=== PATIENT | female | born 1925 | race Two or more races ===

== ENCOUNTER 2017-09-29 11:07 | Inpatient (IN) ==
[2017-09-29] MEDS ORDERED: Sod Chloride 0.9% Inj 1,000 ML IV.SIG ONE ×3 (11:24→13:39)
--- NOTE | 2017-09-29 11:31 | ED ---
HPI General Chief complaint: Vaginal Bleeding Stated complaint: [employer] Complaint Time Seen by Provider: 09/29/17 11:16 Source: other (SNF notes) Mode of arrival: EMS Limitations: other (non verbal at baseline) History of Present Illness HPI Narrative: 89-year-old female with PMH of HTN, dementia, nonverbal at baseline, on Plavix presents the ED via EMS from her SNF for evaluation of 2 episodes of clots from the vaginal area. On arrival the patient is alert, responsive to stimuli. She is unable to provide any history. Her daughter arrives to bedside and states that she has not seen any vaginal bleeding. The daughter states that the patient had "a stomach virus" last week and required supplemental 02 but has since been "fine" on room air. Related Data Allergies Allergy/AdvReac Type Severity Reaction Status Date / Time No Known Allergies Allergy Unknown Uncoded 08/07/17 18:55 Review of Systems ROS Unobtainable ROS Unobtainable: unobtainable due to mental status (patient is nonverbal at baseline) PMFSH Social History Social History Smoking Status: Unknown if ever smoked How Often Do You Have a Drink Containing Alcohol: Unable to Obtain Recent Travel in [place] within the Last 8 Weeks: No Recent Out of Country Travel within the Last 8 Weeks: No Exam Narrative Exam Narrative: GENERAL: Well developed, well nourished Latine female in [facility]. Nonverbal. SKIN: Focused skin assessment warm/dry. HEAD: Atraumatic. Normocephalic. EYES: Pupils equal and round. No scleral icterus. No injection or drainage. ENT: No nasal bleeding or discharge. Mucous membranes pink and moist. NECK: Trachea midline. No JVD. CARDIOVASCULAR: Regular rate and rhythm. No murmur appreciated. RESPIRATORY: No accessory muscle use. Clear to auscultation. Breath sounds equal bilaterally. GASTROINTESTINAL: Abdomen soft, nondistended. Tender in suprapubic region. Hepatic and splenic margins not palpable. Active bowel sounds. : External genitalia unremarkable. Urine collected on straight catheterization frankly bloody. MUSCULOSKELETAL: No obvious deformities. No clubbing. No cyanosis. No edema. NEUROLOGICAL: Awake and alert. No obvious cranial nerve deficits. Motor grossly within normal limits. Normal speech. PSYCHIATRIC: Appropriate mood and affect; insight and judgment normal. Course Initial Documented Vital Signs Temperature 98.6 F 09/29/17 11:16 Pulse Rate 112 H 09/29/17 11:16 Respiratory Rate 18 09/29/17 11:16 Blood Pressure 82/56 L 09/29/17 11:16 Pulse Oximetry 95 09/29/17 11:16 Last Documented Vital Signs Temperature 98.6 F 09/29/17 11:16 Pulse Rate 83 09/29/17 15:47 Respiratory Rate 18 09/29/17 15:47 Blood Pressure 83/53 L 09/29/17 15:47 Pulse Oximetry 96 09/29/17 15:47 Medical Decision Making AMARA Attestation AMARA supervised visit: Yes Attestation: I, Dr. Calle, have reviewed the advance practice practitioner's documentation and am in agreement, met with the patient face to face, made the diagnosis, and the medical decision making was done by me. *My assessment and Findings: Sepsis with urinary tract infection. Hypotension despite 3 L of fluid. Patient be started on levo fed. Case was discussed with Dr. Abiel John who will resume care. MDM Narrative Medical decision making narrative: 89-year-old female presents the ED from her SNF for evaluation of 2 episodes of vaginal bleeding. BP 82/56, pulse 112, afebrile, respiratory rate of 18 with O2 sats of 95% on room air on presentation. Patient is nonverbal at baseline. Physical exam reveals suprapubic tenderness and amanda hematuria. Suspect hemorrhagic cystitis. IV was established. Patient was administered 2 L normal saline. CBC: WBC 30.1 with absolute neutrophil count of 29.5. Hemoglobin 12.7. CMP: BUN 33, creatinine 1.71, GFR 28. There is an anion gap of 19. Lactic acid 10.8 ABG: pH 7.3 PCO2 27 HCO3 12.9 UA: Cloudy, innumerable WBCs and RBCs, occasional WBC clumps, many bacteria, culture pending. Ultrasound KUB: 3 nonobstructing left kidney stones up to 16 mm. No other acute abnormality. Patient was administered 2 liter of normal saline. 2L NC initiated. Vitals on recheck: HR 76, BP 80/55. Levophed drip initiated. Patient was administered 4.5 mg Zosyn. Three-way catheter was inserted and flushing of the hematuria was initiated. I spoke with the patients daughter at bedside who is agreeable to admission. The patient does not currently have an advanced directive. Dr. Calle spoke with Dr. John who agrees to accept the patient to the ICU. Please see medicine notes for disposition. Medical Screen Exam Complete: Yes Emergency Medical Condition: Yes Differential Diagnosis Differential Diagnosis: Hemorrhagic cystitis versus bladder tumor versus GI bleed versus anemia versus metabolic derangement versus other Lab Data Result diagrams: 09/29/17 11:30 09/29/17 11:30 Lab Results 09/29/17 09/29/17 09/29/17 Range/Units 10:10 11:30 11:30 WBC 30.1 H (4.0-11.0) th/mm3 RBC 4.49 (4.00-5.30) mil/mm3 Hgb 12.7 (11.6-15.3) gm/dL Hct 39.4 (35.0-46.0) % MCV 87.9 (80.0-100.0) fL MCH 28.4 (27.0-34.0) pg MCHC 32.3 (32.0-36.0) % RDW 14.8 (11.6-17.2) % Plt Count 277 (150-450) th/mm3 MPV 8.0 (7.0-11.0) fL Prelim Diff (Auto) Manual diff required WBC Differential Manual diff final Seg Neuts % (Manual) 56 (16-70) % Band Neuts % (Manual) 37 H (0-6) % Lymphocytes % (Manual) 2 L (9-44) % Metamyelocytes % (Man) 1 (0-1) % Myelocytes % (Man) 4 H (0-0) % Abs Neuts (Manual) 29.5 H (1.8-7.7) th/mm3 Differential Comment . Toxic Vacuolation Present H (None) Platelet Estimate Normal (Normal) Platelet Morphology Enlarged H (Normal) PT 13.5 H (9.8-11.6) sec INR 1.3 Ratio APTT 31.1 H (24.3-30.1) sec Puncture Site Patient Temperature O2 Saturation (90-100) % ABG pH (7.380-7.420) ABG pCO2 (38-42) mmHg ABG pO2 (61-120) mmHg ABG HCO3 (22-26) mmol/L ABG O2 Content (12.0-20.0) Vol % ABG Base Excess (-2-2) mmol/L ABG Methemoglobin (0-2) % Lex Test Hemoglobin (12.0-16.0) G/DL Carboxyhemoglobin (0-4) % O2 Delivery Device Inspired O2 % Critical Value Sodium (136-145) meq/L Potassium (3.5-5.1) meq/L Chloride (98-107) meq/L Carbon Dioxide (21.0-32.0) meq/L Anion Gap (5-15) meq/L BUN (7-18) mg/dL Creatinine (0.50-1.00) mg/dL Estimated GFR (>89) mL/min Random Glucose (74-106) mg/dL Lactic Acid (0.4-2.0) mmol/L Calcium (8.5-10.1) mg/dL Total Bilirubin (0.2-1.0) mg/dL AST (15-37) U/L ALT (10-53) U/L Alkaline Phosphatase (45-117) U/L Total Protein (6.4-8.2) g/dL Albumin (3.4-5.0) g/dL Urine Color Red (Yellw/Straw) Urine Clarity Cloudy H (Clear) Urine pH 6.0 (5.0-8.5) Ur Specific [place] 1.025 (1.002-1.035) Urine Protein 100 H (Neg-Trace) mg/dL Urine Glucose (UA) 50 (Negative) mg/dL Urine Ketones Negative (Negative) mg/dL Urine Occult Blood Large H (Negative) Urine Nitrate Negative (Negative) Urine Bilirubin Negative (Negative) Urine Urobilinogen Less than 2 (Less than 2) mg/dL Ur Leukocyte Esterase Negative (Negative) Urine RBC (0-3) /hpf Urine WBC (0-5) /hpf Urine WBC Clumps Occasional H (None) Urine Bacteria Many H (None) /hpf Micro UA Comment Cath-culture ind Urine Culture Comments Cath-cult indicated Blood Type Antibody Screen 09/29/17 09/29/17 09/29/17 Range/Units 11:30 11:30 13:00 WBC (4.0-11.0) th/mm3 RBC (4.00-5.30) mil/mm3 Hgb (11.6-15.3) gm/dL Hct (35.0-46.0) % MCV (80.0-100.0) fL MCH (27.0-34.0) pg MCHC (32.0-36.0) % RDW (11.6-17.2) % Plt Count (150-450) th/mm3 MPV (7.0-11.0) fL Prelim Diff (Auto) WBC Differential Seg Neuts % (Manual) (16-70) % Band Neuts % (Manual) (0-6) % Lymphocytes % (Manual) (9-44) % Metamyelocytes % (Man) (0-1) % Myelocytes % (Man) (0-0) % Abs Neuts (Manual) (1.8-7.7) th/mm3 Differential Comment Toxic Vacuolation (None) Platelet Estimate (Normal) Platelet Morphology (Normal) PT (9.8-11.6) sec INR Ratio APTT (24.3-30.1) sec Puncture Site Patient Temperature O2 Saturation (90-100) % ABG pH (7.380-7.420) ABG pCO2 (38-42) mmHg ABG pO2 (61-120) mmHg ABG HCO3 (22-26) mmol/L ABG O2 Content (12.0-20.0) Vol % ABG Base Excess (-2-2) mmol/L ABG Methemoglobin (0-2) % Lex Test Hemoglobin (12.0-16.0) G/DL Carboxyhemoglobin (0-4) % O2 Delivery Device Inspired O2 % Critical Value Sodium 144 (136-145) meq/L Potassium 3.9 (3.5-5.1) meq/L Chloride 109 H (98-107) meq/L Carbon Dioxide 16.2 L (21.0-32.0) meq/L Anion Gap 19 H (5-15) meq/L BUN 33 H (7-18) mg/dL Creatinine 1.71 H (0.50-1.00) mg/dL Estimated GFR 28 L (>89) mL/min Random Glucose 193 H (74-106) mg/dL Lactic Acid 10.8 H* (0.4-2.0) mmol/L Calcium 8.3 L (8.5-10.1) mg/dL Total Bilirubin 0.7 (0.2-1.0) mg/dL AST 20 (15-37) U/L ALT 17 (10-53) U/L Alkaline Phosphatase 90 (45-117) U/L Total Protein 7.3 (6.4-8.2) g/dL Albumin 2.6 L (3.4-5.0) g/dL Urine Color (Yellw/Straw) Urine Clarity (Clear) Urine pH (5.0-8.5) Ur Specific [place] (1.002-1.035) Urine Protein (Neg-Trace) mg/dL Urine Glucose (UA) (Negative) mg/dL Urine Ketones (Negative) mg/dL Urine Occult Blood (Negative) Urine Nitrate (Negative) Urine Bilirubin (Negative) Urine Urobilinogen (Less than 2) mg/dL Ur Leukocyte Esterase (Negative) Urine RBC (0-3) /hpf Urine WBC (0-5) /hpf Urine WBC Clumps (None) Urine Bacteria (None) /hpf Micro UA Comment Urine Culture Comments Blood Type B Positive Antibody Screen Negative 09/29/17 Range/Units 13:45 WBC (4.0-11.0) th/mm3 RBC (4.00-5.30) mil/mm3 Hgb (11.6-15.3) gm/dL Hct (35.0-46.0) % MCV (80.0-100.0) fL MCH (27.0-34.0) pg MCHC (32.0-36.0) % RDW (11.6-17.2) % Plt Count (150-450) th/mm3 MPV (7.0-11.0) fL Prelim Diff (Auto) WBC Differential Seg Neuts % (Manual) (16-70) % Band Neuts % (Manual) (0-6) % Lymphocytes % (Manual) (9-44) % Metamyelocytes % (Man) (0-1) % Myelocytes % (Man) (0-0) % Abs Neuts (Manual) (1.8-7.7) th/mm3 Differential Comment Toxic Vacuolation (None) Platelet Estimate (Normal) Platelet Morphology (Normal) PT (9.8-11.6) sec INR Ratio APTT (24.3-30.1) sec Puncture Site Right radial Patient Temperature 98.6 O2 Saturation 91 (90-100) % ABG pH 7.30 L (7.380-7.420) ABG pCO2 27 L (38-42) mmHg ABG pO2 66 (61-120) mmHg ABG HCO3 13 L* (22-26) mmol/L ABG O2 Content 13.1 (12.0-20.0) Vol % ABG Base Excess -12.3 L (-2-2) mmol/L ABG Methemoglobin 0.4 (0-2) % Lex Test Y Hemoglobin 10.3 L (12.0-16.0) G/DL Carboxyhemoglobin 1.3 (0-4) % O2 Delivery Device Ra Inspired O2 21 % Critical Value Yes Sodium (136-145) meq/L Potassium (3.5-5.1) meq/L Chloride (98-107) meq/L Carbon Dioxide (21.0-32.0) meq/L Anion Gap (5-15) meq/L BUN (7-18) mg/dL Creatinine (0.50-1.00) mg/dL Estimated GFR (>89) mL/min Random Glucose (74-106) mg/dL Lactic Acid (0.4-2.0) mmol/L Calcium (8.5-10.1) mg/dL Total Bilirubin (0.2-1.0) mg/dL AST (15-37) U/L ALT (10-53) U/L Alkaline Phosphatase (45-117) U/L Total Protein (6.4-8.2) g/dL Albumin (3.4-5.0) g/dL Urine Color (Yellw/Straw) Urine Clarity (Clear) Urine pH (5.0-8.5) Ur Specific [place] (1.002-1.035) Urine Protein (Neg-Trace) mg/dL Urine Glucose (UA) (Negative) mg/dL Urine Ketones (Negative) mg/dL Urine Occult Blood (Negative) Urine Nitrate (Negative) Urine Bilirubin (Negative) Urine Urobilinogen (Less than 2) mg/dL Ur Leukocyte Esterase (Negative) Urine RBC (0-3) /hpf Urine WBC (0-5) /hpf Urine WBC Clumps (None) Urine Bacteria (None) /hpf Micro UA Comment Urine Culture Comments Blood Type Antibody Screen Imaging Data Radiologist's impression: Abdomen/Bladder Ultrasound 09/29/17 12:23 CONCLUSION: 1. Suspected 3 nonobstructing left renal stones measuring up to 16 mm. 2. No other significant abnormality is identified. There is a simple cyst in the lower pole the right kidney measuring 18 mm. Discharge Plan Discharge Disposition Patient Disposition: 30 Still Patient Physicians Team ED Provider: Ramón Calle ED Midlevel Provider: Dior Reyna Primary Care Provider: Blue Holman Attending Provider: Nicholas Liriano Other Providers: Marcin Jimenez Discharge Interventions Interventions: Vital Signs Last Done: 09/29/17 15:47 Status ED Status: Admitted Patient
[2017-09-29 12:17] LABS: Activated Partial Thrombo Time 31.1 sec (24.3-30.1); INR 1.3 Ratio; Prothrombin Time 13.5 sec (9.8-11.6)
[2017-09-29 12:20] LABS: Bacteria,Urine Many /hpf; Bilirubin,Urine Negative (Negative); Clarity,Urine Cloudy (Clear); Color,Urine Red (Yellw/Straw); Glucose,Urine (UA) 50 mg/dL (Negative); Leukocyte Esterase,Urine Negative (Negative); Nitrite,Urine Negative (Negative); Specific Gravity,Urine 1.025 (1.002-1.035)
[2017-09-29 12:21] LABS: Hematocrit 39.4 % (35.0-46.0); Hemoglobin 12.7 gm/dL (11.6-15.3); Mean Corpuscular HGB Conc 32.3 % (32.0-36.0); Mean Corpuscular Hemoglobin 28.4 pg (27.0-34.0); Mean Corpuscular Volume 87.9 fL (80.0-100.0); Platelet Count 277 th/mm3 (150-450); Red Blood Count 4.49 mil/mm3 (4.00-5.30); Red Cell Distribution Width 14.8 % (11.6-17.2); White Blood Count 30.1 th/mm3 (4.0-11.0)
[2017-09-29 12:26] LABS: Alanine Aminotransferase 17 U/L (10-53); Albumin 2.6 g/dL (3.4-5.0); Anion Gap 19 meq/L (5-15); Aspartate Aminotransferase 20 U/L (15-37); Blood Urea Nitrogen 33 mg/dL (7-18); Calcium 8.3 mg/dL (8.5-10.1); Carbon Dioxide 16.2 meq/L (21.0-32.0); Chloride 109 meq/L (98-107); Glomerular Filtration Rate 28 mL/min (>89); Glucose,Random 193 mg/dL (74-106); Potassium 3.9 meq/L (3.5-5.1); Sodium 144 meq/L (136-145)
[2017-09-29 12:29] LABS: Alkaline Phosphatase 90 U/L (45-117); Total Protein 7.3 g/dL (6.4-8.2)
[2017-09-29] MEDS ORDERED: Piperacil/Tazo 4.5 GM Premix 4.5 GM/100 ML BAG IV.SIG ONE (12:47)
[2017-09-29 12:48] LABS: Lymphocytes 2 % (9-44); Metamyelocytes 1 % (0-1); Myelocytes 4 % (0-0)
[2017-09-29 12:49] LABS: Platelet Estimate Normal (Normal); Toxic Vacuolation Present
--- NOTE | 2017-09-29 13:33 | US ---
EXAM DATE: 09/29/2017 1:15 PM EDT AGE/SEX: 89 years / Female INDICATIONS: Hematuria. CLINICAL DATA: This is the patient's initial encounter. Patient reports that signs and symptoms have been present for 1 day and indicates a pain score of Nonresponsive. MEDICAL/SURGICAL HISTORY: Hypertension. Dementia. Plavix therapy. None. COMPARISON: No prior exams available for comparison. MEASUREMENTS: Right Kidney:__12.2 x 5.4 x 4.7 cm Left Kidney:__10.0 x 5.5 x 5.5 cm FINDINGS: Right Kidney: Echotexture is within normal limits. No hydronephrosis or mass is present. There is an anechoic avascular lesion at the lower pole with through transmission measuring 1.5 x 1.4 x 1.8 cm. Left Kidney: Echotexture is within normal limits. No hydronephrosis or mass is present. There are 3 e chogenic structure is in the collecting system, the 2 largest of which demonstrate shadowing. These r wesley in size from 6 mm up to 16 mm. Bladder: Decompressed. Not well evaluated. Other: None. CONCLUSION: 1. Suspected 3 nonobstructing left renal stones measuring up to 16 mm. 2. No other significant abnormality is identified. There is a simple cyst in the lower pole the righ t kidney measuring 18 mm. Electronically signed by: Malik Goff MD 09/29/2017 1:32 PM EDT
[2017-09-29 14:32] LABS: ABG Base Excess -12.3 mmol/L (-2-2); ABG PCO2 27 mmHg (38-42); ABG PO2 66 mmHg (61-120)
[2017-09-29] MEDS: Dextrose 5%/NaCl 0.9% Inj 1,000 ML IV.CONT SCH (15:09)
--- NOTE | 2017-09-29 16:06 | CT ---
EXAM DATE: 09/29/2017 3:41 PM EDT AGE/SEX: 89 years / Female INDICATIONS: Hematuria. CLINICAL DATA: This is the patient's initial encounter. Patient reports that signs and symptoms have been present for 1 day and indicates a pain score of 0/10. MEDICAL/SURGICAL HISTORY: None. None. RADIATION DOSE: 15.39 CTDI (mGy) COMPARISON: No prior exams available for comparison. TECHNIQUE: Multiple contiguous axial images were obtained through the abdomen. Images were obtained using multiple row detector helical technique. Using automated exposure control and adjustment of the mA and/or kV according to patient size, radiation dose was kept as low as reasonably achievable to o btain optimal diagnostic quality images. DICOM format image data is available electronically for rev iew and comparison. FINDINGS: The study is moderately degraded by patient motion and respiratory motion Liver: Visualized portions are grossly unremarkable. Spleen: Visualized portions grossly unremarkable. Pancreas: Unremarkable without mass or calcification. Kidneys: Staghorn calculus in the left renal pelvis. Small stone fragments in the lateral upper pole collecting system, in the posterior and lateral midpole collecting system and in the lateral lower p ole collecting system as well. No stones are seen on the right. No significant hydronephrosis on eith er side Adrenal Glands: Unremarkable. Aorta: The aorta and proximal iliac vessels are grossly unremarkable without aneurysmal dilation. Bowel/Mesentery: The bowel loops are grossly unremarkable. The cecum and sigmoid colon have a normal configuration. Abdominal Wall: Intact. Retroperitoneum: No evidence of adenopathy in the retrocrural, para-aortic, or deep pelvic regions. Bladder: Decompressed with Pelaez catheter. Reproductive Organs: No abnormal masses or calcifications seen. Inguinal: Bowel containing right inguinal hernia without definite evidence of incarceration or obstr uction at present Bony Structures: Prominent degenerative changes and scoliosis in the lumbar spine. Previous pinning of the right hip. CONCLUSION: Staghorn calculus in the left kidney. Electronically signed by: Malik Joseph MD 09/29/2017 4:05 PM EDT
--- NOTE | 2017-09-29 17:38 | MB ---
cc: Marcin Jimenez DO DATE: 09/29/2017 DATE OF CONSULTATION: 09/29/2017. HISTORY OF PRESENT ILLNESS: An 89-year-old female was brought in from the senior living with findings of gross hematuria and clots in her vaginal area. She is noncommunicative and this history will be taken from the chart. CT scan was done which demonstrated a large left staghorn calculus without any evidence of hydronephrosis. She also appeared septic and is currently with a blood pressure of 83/53 and Levophed is currently being started. She also had a Pelaez catheter inserted and the gross hematuria cleared with gentle CBI. ALLERGIES: NO KNOWN DRUG ALLERGIES. PAST MEDICAL HISTORY: Includes hypertension, dementia, history of coronary artery disease, currently on Plavix. PAST SURGICAL HISTORY: No surgical history is noted. Unable to obtain social or family history as well as review of systems. PHYSICAL EXAMINATION: VITAL SIGNS: Today 98.6, heart rate 83, respiratory rate 18, 83/53. GENERAL: She is a frail 89-year-old female, nonverbal and noncommunicative. HEENT: Pupils are equal, round, reactive to light. NECK: Supple. HEART: Regular rate and rhythm. LUNGS: Breath sounds bilaterally. ABDOMEN: Soft, nontender, nondistended. Pelaez catheter inserted, draining pink-colored urine. EXTREMITIES: Show no cyanosis, clubbing, or edema. LABORATORY DATA: White count is 30.1, hemoglobin 12.7, hematocrit 39.4, platelet count of 277. PT 33.5, INR 1.3, PTT is 31.1. Sodium 144, potassium 3.9, chloride 109, CO2 16.2, BUN of 33, creatinine 1.71, glucose of 193. Urinalysis shows numerous red and white cells. Nitrite is negative. Imaging shows a large left staghorn calculus and an ultrasound of the abdomen showed a simple cyst to the lower pole of the right kidney measuring 18 mm. ASSESSMENT AND PLAN: An 89-year-old female admitted with sepsis. Findings of a left staghorn calculus without obstruction and gross hematuria. Will continue continuous bladder irrigation for now. IV antibiotics and start Levophed. The left staghorn calculus is nonobstructing and we will treat the infection first. Maintain Pelaez catheter and continue CBI. Hold Plavix for now as she is having gross hematuria. We will follow closely with you. Thank you for the consult and allowing me to participate in the care of this patient. DO OSCAR Mcbride/tin , 04:49 PM , 04:59 PM
--- NOTE | 2017-09-29 19:29 | P.HPCC ---
History of Present Illness Service: Critical Care Medicine Primary Care Physician: Blue Holman MD Chief Complaint: hematuria History of Present Illness: This is an 89yF with end-stage dementia who is nonverbal and resides in a healthcare facility. she is brought in by her daughter and medical decision- maker for 48h of hematuria. patient is nonverbal and no additional information is obtainable from the patient. per the daughter, she gets frequent UTIs and she notices this when the patient's clothes have a foul odor. She states she has noticed hematuria x 2 days. no other changes to her appetite or any other changes. Patient has severe dementia and is nonverbal. patient has not had any fevers or rigors that were noticeable to her daughter. in the ER, patient was hypotensive, tachycardic, with leukocytosis. given 3L crystalloid ivf without improvement in hemodynamics and started on norepinephrine for vasopressor support. CT abd/pelvis demonstrates staghorn calculi without hydronephrosis. pedraza catheter placed and started on CBI which improved hematuria. ROS unobtainable. Inpatient Certification: I certify that the inpatient services were ordered in accordance with Medicare regulations governing the order. This includes certification that hospital inpatient services are reasonable and necessary and in the case of services not specified as inpatient-only under 42 CFR 419.22(n), that they are appropriately provided as inpatient services in accordance to with the 2-midnight benchmark under 43 CFR 412.3(e) Estimated Total Length of Stay (Days): 2 Plans for Post Hospital Care: Not yet determined Review of Systems unobtainable due to mental condition, unobtainable due to mental status PMFSH - History History Provided By: Family Member - Medical / Surgical Hx Neg / Unobtainable Medical Problems Denied: Unable to Obtain Surgical History: Unable to Obtain - Tobacco History Second Hand Smoke Exposure: Yes Smoking Status: Never smoker - Alcohol History How Often Do You Have a Drink Containing Alcohol: Never - Substance Use History Substance History: No History of Abuse - Travel History Recent Travel in the [place] Within the Last 8 Weeks: No Recent Travel Out of the Country Within the Last 8 Weeks: No - Immunization History Tetanus Immunization: Unable to Assess Medications and Allergies Active Medications: Active Medications Dextrose/Sodium Chloride (D5w/Normal Saline Inj) 1,000 mls @ 84 mls/hr IV.CONT .[id number] [facility] Last Admin: 09/29/17 15:09 Dose: 84 mls/hr Norepinephrine Bitartrate (Levophed-Dextrose 4 Mg/250 Ml Drip) 4 mg in 250 mls @ 7.5 mls/hr IV.SIG TITRATE ONE; Protocol Stop: 10/01/17 01:51 Last Admin: 09/29/17 17:02 Dose: 2 mcg/min, 7.5 mls/hr Sodium Chloride (Ns Flush) 2 ml IV.FLUSH PRN PRN PRN Reason: FLUSH AFTER USING IV ACCESS Allergies Allergy/AdvReac Type Severity Reaction Status Date / Time No Known Allergies Allergy Unknown Uncoded 08/07/17 18:55 Results - Labs CBC & Chem 7: 09/29/17 11:30 09/29/17 11:30 Labs: Short CBC 09/29/17 Range/Units 11:30 WBC 30.1 H (4.0-11.0) th/mm3 Hgb 12.7 (11.6-15.3) gm/dL Hct 39.4 (35.0-46.0) % Plt Count 277 (150-450) th/mm3 BMP 09/29/17 11:30 Sodium 144 Potassium 3.9 Chloride 109 H Carbon Dioxide 16.2 L BUN 33 H Creatinine 1.71 H Calcium 8.3 L Liver Function 09/29/17 Range/Units 11:30 Total Bilirubin 0.7 (0.2-1.0) mg/dL AST 20 (15-37) U/L ALT 17 (10-53) U/L Alkaline Phosphatase 90 (45-117) U/L Albumin 2.6 L (3.4-5.0) g/dL Urine 09/29/17 Range/Units 10:10 Urine Color Red (Yellw/Straw) Urine Clarity Cloudy H (Clear) Urine pH 6.0 (5.0-8.5) Ur Specific [place] 1.025 (1.002-1.035) Urine Protein 100 H (Neg-Trace) mg/dL Urine Glucose (UA) 50 (Negative) mg/dL - Imaging Impressions Abdomen/Pelvis CT 09/29/17 00:00 CONCLUSION: Staghorn calculus in the left kidney. Abdomen/Bladder Ultrasound 09/29/17 12:23 CONCLUSION: 1. Suspected 3 nonobstructing left renal stones measuring up to 16 mm. 2. No other significant abnormality is identified. There is a simple cyst in the lower pole the right kidney measuring 18 mm. Exam Vital signs: Vital Signs 09/29/17 11:16 09/29/17 11:25 09/29/17 14:34 Temperature 37.0 C Pulse Rate 112 H Respiratory Rate 18 Blood Pressure 82/56 L Pulse Oximetry 95 96 99 09/29/17 14:50 09/29/17 15:47 09/29/17 19:00 Temperature 36.5 C Pulse Rate 89 83 83 Respiratory Rate 18 18 Blood Pressure 79/55 L 83/53 L 89/56 L Pulse Oximetry 99 96 99 Intake & Output 09/29/17 09/29/17 09/30/17 06:59 18:59 06:59 Intake Total 2099 Balance 2099 Weight 66.5 kg Intake: IV 2099 Zosyn 4.5 GM Premix 4.5 gm In 100 / 100 100 ml @ 200 mls/hr IV.SIG ONCE ONE Rx#:[id number] NS Inj 1,000 ML @ Wide Open IV. 1999 SIG BOLUS ONE Rx#:[id number] Other: Weight On Admission 66.5 kg Narrative: gen: frail elderly female, lying in bed, nonverbal at baseline. intermittent moaning. heent: nc. at. perrl. mucous membranes dry. neck: no jvd. trachea midline. chest: room air. equal chest rise. cv: tachycardic rate at 115 bpm. regular rhythm. sinus. on norephinephrine at 10 mcg/min abd: soft, nontender, nondistended. no guarding. no CVA tenderness. extr: no edema. distal pulses 2+ neuro: awake, tracks with eyes. does not follow commands. nonverbal. neuro exam is baseline for patient as described by her daughter who is at bedside. Septic Shock Reassessment Septic shock perfusion: reassessment completed (continues to have evidence of hypoperfusion and under-resuscitation and additional fluids have been ordered) Caprini VTE Risk Assessment Caprini VTE Risk Assessment: Moderate/High Risk (score >= 2) VTE Pharmacological Exception Reason: High risk for bleeding Caprini Risk Assessment Model: Point Value = 1 Point Value = 2 Point Value = 3 Point Value = 5 Age 41-60 Minor surgery BMI > 25 kg/m2 Swollen legs Varicose veins or History of unexplained or recurrent spontaneous Oral contraceptives or hormone replacement Sepsis (< 1 month) Serious lung disease, including pneumonia (< 1 month) Abnormal pulmonary function Acute myocardial infarction Congestive heart failure (< 1 month) History of inflammatory bowel disease Medical patient at bed rest Age 61-74 Arthroscopic surgery Major open surgery (> 45 min) Laparoscopic surgery (> 45 min) Malignancy Confined to bed (> 72 hours) Immobilizing plaster cast Central venous access Age >= 75 History of VTE Family history of VTE Factor V Leiden Prothrombin [id number] Lupus anticoagulant Anticardiolipin antibodies Elevated serum homocysteine Heparin-induced thrombocytopenia Other congenital or acquired thrombophilia Stroke (< 1 month) Elective arthroplasty Hip, pelvis, or leg fracture Acute spinal cord injury (< 1 month) Prophylaxis Regimen: Total Risk Factor Score Risk Level Prophylaxis Regimen 0-1 Low Early ambulation 2 Moderate Order ONE of the following: *Sequential Compression Device (SCD) *Heparin 5000 units SQ BID 3-4 Higher Order ONE of the following medications: *Heparin 5000 units SQ TID *Enoxaparin/Lovenox 40 mg SQ daily (WT < 150 kg, CrCl > 30 mL/min) *Enoxaparin/Lovenox 30 mg SQ daily (WT < 150 kg, CrCl > 10-29 mL/min) *Enoxaparin/Lovenox 30 mg SQ BID (WT < 150 kg, CrCl > 30 mL/min) AND/OR *Sequential Compression Device (SCD) 5 or more Highest Order ONE of the following medications: *Heparin 5000 units SQ TID (Preferred with Epidurals) *Enoxaparin/Lovenox 40 mg SQ daily (WT < 150 kg, CrCl > 30 mL/min) *Enoxaparin/Lovenox 30 mg SQ daily (WT < 150 kg, CrCl > 10-29 mL/min) *Enoxaparin/Lovenox 30 mg SQ BID (WT < 150 kg, CrCl > 30 mL/min) AND *Sequential Compression Device (SCD) Assessment and Plan - Assessment and Plan Plan: Assessment: 89yF with end-stage dementia and now septic shock secondary to urinary tract infection/acute pyelonephritis. continue ivf and vasopressors. abx and cultures. long discussion with daughter and son-in-law who are medical decision-makers: they wish patient to be DNR code status. they agree with vasopressors at this time. I consented the daughter for central line placement and she agrees, as patient is on vasopressor support for ongoing shock. critically ill at this time. Plan by systems: Neuro: end-stage severe dementia- nonverbal at baseline frequent neuro checks avoid long-acting sedatives Resp: IS at bedside wean o2 by nc for goal spo2 > 90% bedrest while in shock CV: Septic Shock s/p 3L crystalloid ivf add additional 5% albumin increase mivf to 100cc/hr trend lactates norepinephrine for goal map > 65mmHg Renal: Acute pyelonephritis Acute hematuria Acute kidney injury urology consult continue CBI abx as below trend Cr on daily bmp frequent uop monitoring FEN/GI: Acute protein calorie malnutrition- moderate Lactic Acidosis Acute anion-gap metabolic acidosis npo while in shock mivf at 100cc/hr trend lactates daily bmp ICU electrolyte protocol Heme/ID: Anemia secondary to acute blood loss Septic Shock Acute pyelonephritis Vancomycin with pharmacy dosing Zosyn urine culture, blood cultures does not meet transfusion triggers at this time daily cbc Endo: Hyperglycemia of critical illness SSI Prophylaxis: SCDs hold pharmacologic dvt prophylaxis given active hematuria Lines: 09/29 place right IJ TLC for vasopressors 09/29 3-way CBI Pedraza Dispo: admit to ICU. critically ill Critical care time: 41 minutes, exclusive of separately billable procedures. H&P: Quality - VTE Deep Vein Thrombosis/Pulmonary Embolism Present on Admission: No
[2017-09-29] MEDS ORDERED: Magnesium Oxide 400 MG Tablet PO PRN (19:30)
[2017-09-29] MEDS ORDERED: Potassium Phosphate Inj 30 MMOL in Sodium Chlor 0.9% Inj 250 ML IV.SIG PRN (19:30)
[2017-09-29] MEDS ORDERED: Potassium Phosphate 500 MG Soluble Tablet PO PRN ×2 (19:30)
[2017-09-29] MEDS ORDERED: Potassium Chloride 25 MEQ Effervescent Tablet PO PRN (19:30)
[2017-09-29] MEDS ORDERED: Sodium Phosphate Inj 30 MMOL in Sodium Chlor 0.9% Inj 250 ML IV.SIG PRN (19:30)
[2017-09-29] MEDS ORDERED: Magnesium Sulfate Inj 4 GM in Sodium Chlor 0.9% Inj 92 ML IV.SIG PRN (19:30)
[2017-09-29] MEDS ORDERED: Potassium Chlor 40 mEq Premix 40 MEQ/100 ML PIGGYBACK IV.SIG PRN ×2 (19:30)
[2017-09-29] MEDS ORDERED: Magnesium Sulfate Inj 2 GM in Sodium Chlor 0.9% Inj 96 ML IV.SIG PRN (19:30)
[2017-09-29] MEDS ORDERED: Potassium Chlor 20 mEq Premix 20 MEQ/100 ML PIGGYBACK IV.SIG PRN ×2 (19:30)
[2017-09-29] MEDS ORDERED: Bisacodyl 10 MG Supp RECTAL PRN (19:30)
--- NOTE | 2017-09-29 19:30 | P.PCN ---
Date of procedure: 09/29/17 Procedure: Central Line Procedure Note Right IJ 7 [place] 20 cm triple-lumen catheter Diagnosis: Septic shock Indications: Need for highly potent vasoactive substances Consent: Obtained from the daughter and medical decision maker Anesthesia: 1% lidocaine locally Description of the Procedure: The patient was placed in the supine, mild- Trendelenburg position. The area was prepped and draped sterilely. A 19g needle was inserted under negative pressure aspiration and dark venous blood was obtained. A guidewire was inserted easily without resistance. A small incision was made using a #11 blade. Using a modified Seldinger technique, the dilator and 7 [place], 20 cm catheter were advanced over the guidewire without resistance. All ports were aspirated and flushed, and had brisk blood return. The line was secured at 17 cm at the skin using a non-suture StatLock device. A Biopatch and Transparent sterile dressing were applied. There were no immediate complications noted. There was minimal EBL. The patient tolerated the procedure well. Ultrasound Guidance: Ultrasound guidance was used to identify the right internal jugular vein. The vascular anatomy of the right anterior neck was normal. The vessel was cannulated under direct, real-time ultrasound visualization. After placement of the guidewire, confirmation of the guidewire in the lumen of the vessel was made using ultrasound visualization, before dilation of the tract. A Chest x-ray has been ordered. I personally performed the procedure.
[2017-09-29] MEDS ORDERED: Vancomycin Inj 1 GM/200 ML PIGGYBACK IV.SIG ONE (19:35)
[2017-09-29] MEDS ORDERED: Vancomycin Consult Pharmacy OTHER PRN (19:35)
--- NOTE | 2017-09-29 19:59 | XR ---
EXAM DATE: 09/29/2017 7:42 PM EDT AGE/SEX: 89 years / Female INDICATIONS: Central line placement. CLINICAL DATA: This is the patient's initial encounter. Patient reports that signs and symptoms have been present for 1 day and indicates a pain score of Nonresponsive. MEDICAL/SURGICAL HISTORY: . Hypertension. Dementia. None. COMPARISON: No prior exams available for comparison. FINDINGS: Right central venous catheter tip projects in the right atrium. No evidence of pneumothorax. The exam ination is performed in expiration and there is elevation of the hemidiaphragms, right more than left . No evidence of mediastinal shift. Indistinctness and fullness of the perihilar structures. CONCLUSION: No evidence of pneumothorax status post placement of right central line. Electronically signed by: Tony Green MD 09/29/2017 7:58 PM EDT
[2017-09-29] MEDS: Famotidine PF Inj 20 MG/2 ML Vial IV.PUSH SCH (21:08)
[2017-09-29] MEDS: Sod Chloride 0.9% Inj 1,000 ML IV.CONT SCH (21:13)
[2017-09-29] MEDS: Senna/Docusate Sodium 8.6/50 MG Tablet PO SCH (21:14)
[2017-09-29] MEDS ORDERED: Vancomycin Inj 1,250 MG in Sodium Chlor 0.9% Inj 250 ML IV.SIG ONE (21:14)
[2017-09-29] MEDS ORDERED: Vancomycin Inj 1,000 MG in Sodium Chlor 0.9% Inj 250 ML IV.SIG ONE (21:16)
[2017-09-29] MEDS ORDERED: Albumin Human 5% Inj 500 ML IV.SIG ONE (22:09)
[2017-09-29] MEDS: Piperacil/Tazo 3.375 GM Premix 50 ML IV.SIG SCH (23:04)
[2017-09-30] MEDS: Chlorhexidine Gluconate 2% 1 Pack (2 Cloths) TOPICAL SCH (03:26)
[2017-09-30] MEDS: Piperacil/Tazo 3.375 GM Premix 50 ML IV.SIG SCH ×3 (03:41→15:36)
[2017-09-30] MEDS ORDERED: Chlorhexidine Gluconate 2% 1 Pack (2 Cloths) TOPICAL PRN (04:00)
[2017-09-30 04:04] LABS: Hematocrit 29.8 % (35.0-46.0); Hemoglobin 9.5 gm/dL (11.6-15.3); Mean Corpuscular HGB Conc 31.9 % (32.0-36.0); Mean Corpuscular Hemoglobin 28.4 pg (27.0-34.0); Mean Corpuscular Volume 89.1 fL (80.0-100.0); Mean Platelet Volume 7.7 fL (7.0-11.0); Platelet Count 177 th/mm3 (150-450); Red Blood Count 3.34 mil/mm3 (4.00-5.30); Red Cell Distribution Width 14.9 % (11.6-17.2); White Blood Count 51.8 th/mm3 (4.0-11.0)
[2017-09-30 04:27] LABS: Calcium 6.9 mg/dL (8.5-10.1); Carbon Dioxide 18.2 meq/L (21.0-32.0); Potassium 3.7 meq/L (3.5-5.1)
[2017-09-30 04:46] LABS: Total Protein 6.8 g/dL (6.4-8.2)
[2017-09-30] MEDS: Dextrose 5%/NaCl 0.9% Inj 1,000 ML IV.CONT SCH (05:26)
[2017-09-30] MEDS ORDERED: SODIUM CHLOR 0.9% IV.SIG ONE (06:00)
[2017-09-30] MEDS ORDERED: CALCIUM CHLORIDE IV.SIG ONE (06:00)
[2017-09-30] MEDS: Sod Chloride 0.9% Inj 1,000 ML IV.CONT SCH (07:13)
[2017-09-30] MEDS: Famotidine PF Inj 20 MG/2 ML Vial IV.PUSH SCH ×2 (08:19→20:00)
[2017-09-30] MEDS: Senna/Docusate Sodium 8.6/50 MG Tablet PO SCH ×2 (08:19→20:00)
--- NOTE | 2017-09-30 13:55 | P.PNURO ---
Subjective Patient symptoms today: Pt seen and examined. Gross hematuria on CBI. Pelaez irrigated at bedside. Objective Vital Signs: Vital Signs 09/29/17 14:34 09/29/17 14:50 09/29/17 15:47 Temperature Pulse Rate 89 83 Respiratory Rate 18 18 Blood Pressure 79/55 L 83/53 L Pulse Oximetry 99 99 96 09/29/17 19:00 09/29/17 20:00 09/29/17 21:00 Temperature 97.7 F Pulse Rate 83 82 85 Respiratory Rate 24 20 Blood Pressure 89/56 L 91/53 L 93/51 L Pulse Oximetry 99 96 95 09/29/17 21:25 09/29/17 22:00 09/29/17 23:00 Temperature Pulse Rate 81 83 Respiratory Rate 24 22 Blood Pressure 99/60 L 115/70 Pulse Oximetry 97 96 93 L 09/30/17 00:00 09/30/17 01:00 09/30/17 02:00 Temperature 98.7 F Pulse Rate 94 H 80 80 Respiratory Rate 24 24 24 Blood Pressure 123/82 114/60 113/59 L Pulse Oximetry 91 L 97 96 09/30/17 03:00 09/30/17 04:00 09/30/17 05:00 Temperature 98.3 F Pulse Rate 80 109 H 83 Respiratory Rate 21 26 H 24 Blood Pressure 144/83 H 144/72 H 94/70 L Pulse Oximetry 95 91 L 96 09/30/17 06:00 09/30/17 08:45 09/30/17 08:46 Temperature Pulse Rate 76 Respiratory Rate 20 Blood Pressure 99/55 L Pulse Oximetry 96 100 100 Intake & Output 09/29/17 09/30/17 09/30/17 18:59 06:59 18:59 Intake Total 2450 / 2450 1403.3 / 1403.3 Output Total 2625 / 2625 Balance -175 / -175 1403.3 / 1403.3 Weight 66.5 kg 65.5 kg Intake: IV 2450 / 2450 1403.3 / 1403.3 NS Inj 1,000 ML @ 100 mls/hr IV 1000 / 1000 .CONT .Q10H WADE Rx#:[id number] Calcium Chloride Inj 0.33 GM In 103.3 / 103.3 NS Inj 100 ML @ 103.3 mls/hr IV.SIG NOW ONE Rx#:[id number] Levophed-Dextrose 4 mg/250 ml 250 / 250 250 / 250 Drip 4 mg In 250 ml @ 7 MCG/MIN 26.25 mls/hr IV.SIG TITRATE PRN Rx#:[id number] Zosyn 3.375 GM Premix 50 ML @ 100 / 100 50 / 50 100 mls/hr IV.SIG Q6H WADE Rx#: [id number] Zosyn 4.5 GM Premix 4.5 gm In 100 / 100 100 ml @ 200 mls/hr IV.SIG ONCE ONE Rx#:[id number] NS Inj 1,000 ML @ Wide Open IV. 1999 / 1999 SIG BOLUS ONE Rx#:[id number] Output: Urine Amount (Catheter) 2625 / 2625 Straight 2625 / 2625 Other: Bladder Irrigation Fluid - Amount Instilled Straight 3,000 Bladder Irrigation Fluid - Amount Drained Straight 3,000 Date of Last Bowel Movement 09/29/17 09/30/17 # Bowel Movements 2 Weight On Admission 66.5 kg Result Diagrams: 09/30/17 03:50 09/30/17 03:50 Imaging: Impressions Abdomen/Pelvis CT 09/29/17 00:00 CONCLUSION: Staghorn calculus in the left kidney. Chest X-Ray 09/29/17 00:00 CONCLUSION: No evidence of pneumothorax status post placement of right central line. Medications and IVs: Active Medications Generic Name Dose Route Start Last Admin Trade Name Freq PRN Reason Stop Dose Admin Acetaminophen 650 mg 09/29/17 19:30 Tylenol PO Q6H PRN PAIN 1-10 AND/OR FEVER >101F Al Hydroxide/Mg Hydroxide 30 ml 09/29/17 19:30 Milk Of Magnesia Liq PO Q12H PRN Mild Constipation Albuterol 1 ampul 09/29/17 19:30 Duoneb Neb (Prn) NEB Q2HR NEB PRN WHEEZING Bisacodyl 10 mg 09/29/17 19:30 Dulcolax Supp RECTAL DAILY PRN SEVERE CONSITIPATION Chlorhexidine Gluconate 3 pack 09/30/17 04:00 09/30/17 03:26 Chlorhexidine 2% Cloth TOPICAL 10/05/17 03:59 3 pack DAILY@0400 WADE Administration Chlorhexidine Gluconate 3 pack 09/30/17 04:00 Chlorhexidine 2% Cloth TOPICAL 10/05/17 03:59 DAILY@0400 PRN Extra cloth needed Famotidine 10 mg 09/29/17 21:00 09/30/17 08:19 Pepcid Pf Inj IV.PUSH 10 mg Q12HR WADE Administration Dextrose/Sodium Chloride 1,000 mls @ 84 mls/hr 09/29/17 14:00 09/30/17 05:26 D5w/Normal Saline Inj IV.CONT Not Given .[id number] WADE Magnesium Sulfate Inj 4 gm/ 100 mls @ 50 mls/hr 09/29/17 19:30 Sodium Chloride IV.SIG UNSCH PRN For Magnesium 0.9 - 1.1 mg/dL Sodium Chloride 1,000 mls @ 100 mls/hr 09/29/17 21:00 09/30/17 07:13 Ns Inj IV.CONT 100 mls/hr .Q10H WADE Administration Potassium Chloride 20 meq in 100 mls @ 50 mls/hr 09/29/17 19:30 Kcl 20 Meq Premix Inj IV.SIG Q2H PRN For Potassium 3.3 - 3.5 mEq/L Potassium Chloride 40 meq in 100 mls @ 25 mls/hr 09/29/17 19:30 Kcl 40 Meq Premix Inj IV.SIG UNSCH PRN For Potassium 3.3 - 3.5 mEq/L Potassium Phosphate 30 mmol/ 260 mls @ 42 mls/hr 09/29/17 19:30 Sodium Chloride IV.SIG UNSCH PRN SEE LABEL COMMENTS Sodium Phosphate 30 mmol/ 260 mls @ 42 mls/hr 09/29/17 19:30 Sodium Chloride IV.SIG UNSCH PRN For Phosphorus < 2.5 mg/dL Magnesium Sulfate Inj 2 gm/ 100 mls @ 50 mls/hr 09/29/17 19:30 Sodium Chloride IV.SIG UNSCH PRN For Magnesium 1.2 - 1.6 mg/dL Potassium Chloride 40 meq in 100 mls @ 25 mls/hr 09/29/17 19:30 Kcl 40 Meq Premix Inj IV.SIG Q2H PRN For Potassium 2.8 - 3.2 mEq/L Potassium Chloride 20 meq in 100 mls @ 50 mls/hr 09/29/17 19:30 Kcl 20 Meq Premix Inj IV.SIG Q2H PRN For Potassium 2.8 - 3.2 mEq/L Piperacillin/Tazobactam/Dextrose 50 mls @ 100 mls/hr 09/29/17 22:00 09/30/17 10:30 Zosyn 3.375 Gm Premix IV.SIG Infused Q6H WADE Infusion Norepinephrine Bitartrate 4 mg in 250 mls @ 26.25 mls/hr 09/30/17 04:14 09/30 10:16 Levophed-Dextrose 4 Mg/250 Ml Drip IV.SIG 7 mcg/min TITRATE PRN 26.25 mls/hr Per Protocol Administration Protocol 7 MCG/MIN Lactulose 30 ml 09/29/17 19:30 Lactulose Liq PO DAILY PRN SEVERE CONSITIPATION Magnesium Oxide 800 mg 09/29/17 19:30 Mag-Ox PO UNSCH PRN For Magnesium 1.2 - 1.6 mg/dL Ondansetron HCl 4 mg 09/29/17 19:30 Zofran Inj IV.PUSH Q6H PRN NAUSEA OR VOMITING Pharmacy Profile Note 1 each 09/29/17 19:35 Vancomycin Consult Pharmacy OTHER UNSCH PRN Pharmacy to dose Potassium Bicarb/Potassium Chloride 50 meq 09/29/17 19:30 K-Lyte Cl Eff PO UNSCH PRN For Potassium 3.3 - 3.5 mEq/L Potassium Phosphate 2,000 mg 09/29/17 19:30 K-Phos Original PO Q4H PRN Phosphorus Less Than 2.5 mg/dL Potassium Phosphate 2,000 mg 09/29/17 19:30 K-Phos Original PO UNSCH PRN SEE LABEL COMMENTS Senna/Docusate Sodium 1 tab 09/29/17 21:00 09/30/17 08:19 Trina-Colace PO Not Given BID WADE Sennosides 17.2 mg 09/29/17 19:30 Senokot PO Q12H PRN Moderate Constipation Sodium Chloride 2 ml 09/29/17 19:30 Ns Flush IV.FLUSH PRN PRN FLUSH AFTER USING IV ACCESS Sodium Chloride 2 ml 09/29/17 21:00 09/30/17 08:20 Ns Flush IV.FLUSH 2 ml BID WADE Administration Terbutaline Sulfate 1 mg 09/30/17 04:14 Brethine Inj SQ UNSCH PRN For Extravasation Objective Remarks: ABd:soft,nt,nd Bladder distended. Assessment and Plan - Plan 89 y.o female with gross hematuria. Pelaez irrigated at bedside to clear Continue CBI for now.
--- NOTE | 2017-09-30 17:52 | P.PNCC ---
Subjective Subjective Remarks/Hospital Course: Hospital Course: This is an 89yF with end-stage dementia who is nonverbal and resides in a healthcare facility. she is brought in by her daughter and medical decision- maker for 48h of hematuria. patient is nonverbal and no additional information is obtainable from the patient. per the daughter, she gets frequent UTIs and she notices this when the patient's clothes have a foul odor. She states she has noticed hematuria x 2 days. no other changes to her appetite or any other changes. Patient has severe dementia and is nonverbal. patient has not had any fevers or rigors that were noticeable to her daughter. in the ER, patient was hypotensive, tachycardic, with leukocytosis. given 3L crystalloid ivf without improvement in hemodynamics and started on norepinephrine for vasopressor support. CT abd/pelvis demonstrates staghorn calculi without hydronephrosis. pedraza catheter placed and started on CBI which improved hematuria. ROS unobtainable. Subjective: 09/30: clinically improving. levophed requirement decreasing. lactate clearing. looks much better. family states she appears more herself. cultures growing e. coli which is ESBL by DNA PCR. will start ertapenem while we await formal sensitivities. Objective Vital Signs / I&O: Vital Signs 09/29/17 19:00 09/29/17 20:00 09/29/17 21:00 Temperature 36.5 C Pulse Rate 83 82 85 Respiratory Rate 24 20 Blood Pressure 89/56 L 91/53 L 93/51 L Pulse Oximetry 99 96 95 09/29/17 21:25 09/29/17 22:00 09/29/17 23:00 Temperature Pulse Rate 81 83 Respiratory Rate 24 22 Blood Pressure 99/60 L 115/70 Pulse Oximetry 97 96 93 L 09/30/17 00:00 09/30/17 01:00 09/30/17 02:00 Temperature 37.1 C Pulse Rate 94 H 80 80 Respiratory Rate 24 24 24 Blood Pressure 123/82 114/60 113/59 L Pulse Oximetry 91 L 97 96 09/30/17 03:00 09/30/17 04:00 09/30/17 05:00 Temperature 36.8 C Pulse Rate 80 109 H 83 Respiratory Rate 21 26 H 24 Blood Pressure 144/83 H 144/72 H 94/70 L Pulse Oximetry 95 91 L 96 09/30/17 06:00 09/30/17 08:45 09/30/17 08:46 Temperature Pulse Rate 76 Respiratory Rate 20 Blood Pressure 99/55 L Pulse Oximetry 96 100 100 Intake & Output 09/29/17 09/30/17 09/30/17 18:59 06:59 18:59 Intake Total 2450 / 2450 2453.3 / 2453.3 Output Total 2625 / 2625 Balance -175 / -175 2453.3 / 2453.3 Weight 66.5 kg 65.5 kg Intake: IV 2450 / 2450 2453.3 / 2453.3 NS Inj 1,000 ML @ 100 mls/hr IV 1999 .CONT .Q10H [facility] Rx#:[id number] Calcium Chloride Inj 0.33 GM In 103.3 / 103.3 NS Inj 100 ML @ 103.3 mls/hr IV.SIG NOW ONE Rx#:[id number] Levophed-Dextrose 4 mg/250 ml 250 / 250 250 / 250 Drip 4 mg In 250 ml @ 7 MCG/MIN 26.25 mls/hr IV.SIG TITRATE PRN Rx#:[id number] Zosyn 3.375 GM Premix 50 ML @ 100 / 100 100 / 100 100 mls/hr IV.SIG Q6H [facility] Rx#: [id number] Zosyn 4.5 GM Premix 4.5 gm In 100 / 100 100 ml @ 200 mls/hr IV.SIG ONCE ONE Rx#:[id number] NS Inj 1,000 ML @ Wide Open IV. 1999 SIG BOLUS ONE Rx#:[id number] Output: Urine Amount (Catheter) 2625 / 2625 Straight 2625 / 2625 Other: Bladder Irrigation Fluid - Amount Instilled Straight 3,000 Bladder Irrigation Fluid - Amount Drained Straight 3,000 Date of Last Bowel Movement 09/29/17 09/29/17 # Bowel Movements 2 Weight On Admission 66.5 kg Result Diagrams: 09/30/17 03:50 09/30/17 03:50 Objective Remarks: gen: frail elderly female, lying in bed, nonverbal at baseline. not moaning this AM. tracking with eyes. heent: nc. at. perrl. mucous membranes moist neck: no jvd. trachea midline. chest: room air. equal chest rise. cv: normal rate, regular rhythm. sinus. levophed at 3 mcg/min. abd: soft, nontender, nondistended. no guarding. no CVA tenderness. extr: no edema. distal pulses 2+ neuro: awake, tracks with eyes. does not follow commands. nonverbal. neuro exam is baseline for patient as described by her daughter who is at bedside. Assessment and Plan - Assessment and Plan Plan: Assessment: 89yF with end-stage dementia and now septic shock secondary to urinary tract infection/acute pyelonephritis. continue ivf and vasopressors. abx and cultures. continues to be complex and high risk. Plan by systems: Neuro: end-stage severe dementia- nonverbal at baseline frequent neuro checks avoid long-acting sedatives Resp: IS at bedside wean o2 by nc for goal spo2 > 90% bedrest while in shock CV: Septic Shock continue mivf 100cc/hr trend lactates norepinephrine for goal map > 65mmHg Renal: Acute pyelonephritis Acute hematuria Acute kidney injury urology consult continue CBI abx as below trend Cr on daily bmp frequent uop monitoring FEN/GI: Acute protein calorie malnutrition- moderate Lactic Acidosis- resolving. Acute anion-gap metabolic acidosis speech consult for swallow eval, advance diet after that. per mivf at 100cc/hr trend lactates daily bmp ICU electrolyte protocol Heme/ID: Anemia secondary to acute blood loss Septic Shock Acute pyelonephritis ESBL E. Coli UTI d/c vanc d/c zosyn start 1gm ertapenem iv q24h. continue to follow up formal sensitivities. does not meet transfusion triggers at this time daily cbc Endo: Hyperglycemia of critical illness SSI Prophylaxis: SCDs hold pharmacologic dvt prophylaxis given active hematuria Lines: 09/29 right IJ TLC for vasopressors 09/29 3-way CBI Pedraza Dispo: remain in ICU.
[2017-09-30] MEDS ORDERED: ASP: Documented ESBL, MDR A baumannii or P. aeruginosa OTHER PRN (20:07)
[2017-10-01] MEDS: Chlorhexidine Gluconate 2% 1 Pack (2 Cloths) TOPICAL SCH (03:16)
[2017-10-01 03:24] LABS: Hematocrit 21.8 % (35.0-46.0); Mean Corpuscular Hemoglobin 28.1 pg (27.0-34.0); Mean Corpuscular Volume 87.9 fL (80.0-100.0); Mean Platelet Volume 8.1 fL (7.0-11.0); Platelet Count 122 th/mm3 (150-450); Red Blood Count 2.48 mil/mm3 (4.00-5.30); White Blood Count 28.6 th/mm3 (4.0-11.0)
[2017-10-01] MEDS: Dextrose 5%/NaCl 0.9% Inj 1,000 ML IV.CONT SCH (03:40)
[2017-10-01 04:22] LABS: Calcium 6.9 mg/dL (8.5-10.1); Carbon Dioxide 18.9 meq/L (21.0-32.0); Potassium 3.6 meq/L (3.5-5.1)
[2017-10-01 04:36] LABS: Total Protein 5.9 g/dL (6.4-8.2)
[2017-10-01] MEDS: Sod Chloride 0.9% Inj 1,000 ML IV.CONT SCH ×2 (07:02)
--- NOTE | 2017-10-01 08:42 | P.PNURO ---
Subjective Patient symptoms today: Pt seen and examined. Gross hematuria continues. Will start Amicar CBI now. Received blood products this AM. Objective Vital Signs: Vital Signs 09/30/17 08:45 09/30/17 08:46 09/30/17 09:00 Temperature Pulse Rate 83 Respiratory Rate Blood Pressure Pulse Oximetry 100 100 09/30/17 12:00 09/30/17 16:00 09/30/17 20:00 Temperature 98.6 F 98 F 98.4 F Pulse Rate 125 H 77 87 Respiratory Rate 27 H 24 24 Blood Pressure 156/73 H 144/58 H 107/58 L Pulse Oximetry 95 99 94 L 09/30/17 20:15 09/30/17 21:00 09/30/17 22:00 Temperature Pulse Rate 74 105 H Respiratory Rate 20 22 Blood Pressure 100/51 L 188/78 H Pulse Oximetry 95 95 95 09/30/17 23:00 10/01/17 00:00 10/01/17 01:00 Temperature 98.8 F Pulse Rate 79 80 124 H Respiratory Rate 20 20 20 Blood Pressure 119/57 L 147/66 H 181/114 H Pulse Oximetry 96 95 79 L 10/01/17 02:00 10/01/17 03:00 10/01/17 04:00 Temperature Pulse Rate 79 79 79 Respiratory Rate 20 18 18 Blood Pressure 92/52 L 136/64 146/61 H Pulse Oximetry 94 L 92 L 88 L 10/01/17 04:56 10/01/17 05:00 10/01/17 05:12 Temperature 98.9 F 97.8 F Pulse Rate 83 83 83 Respiratory Rate 18 18 18 Blood Pressure 147/65 H 148/67 H 142/64 H Pulse Oximetry 98 96 98 10/01/17 06:00 10/01/17 07:30 Temperature 97.8 F Pulse Rate 78 Respiratory Rate 18 Blood Pressure 159/68 H Pulse Oximetry 98 100 Intake & Output 09/30/17 10/01/17 10/01/17 18:59 06:59 18:59 Intake Total 2453.3 / 2453.3 100 / 100 Output Total 2099 / 2099 Balance 353.3 / 353.3 100 / 100 Weight 71 kg Intake: IV 2453.3 / 2453.3 100 / 100 NS Inj 1,000 ML @ 100 mls/hr IV 1999 / 1999 .CONT .Q10H [facility] Rx#:[id number] Calcium Chloride Inj 0.33 GM In 103.3 / 103.3 NS Inj 100 ML @ 103.3 mls/hr IV.SIG NOW ONE Rx#:[id number] INVanz Inj 1,000 MG In NS Inj 100 / 100 100 ML @ 100 mls/hr IV.SIG Q24H [facility] Rx#:[id number] Levophed-Dextrose 4 mg/250 ml 250 / 250 Drip 4 mg In 250 ml @ 7 MCG/MIN 26.25 mls/hr IV.SIG TITRATE PRN Rx#:[id number] Zosyn 3.375 GM Premix 50 ML @ 100 / 100 100 mls/hr IV.SIG Q6H [facility] Rx#: [id number] Intake (Blood Product) Amt 0 / 0 Rbc As-3 Leukoreduced Unit 0 / 0 [id number] Output: Urine Amount (Catheter) 2099 3-way Urethral 2099 Other: Bladder Irrigation Fluid - 9,000 3,000 Amount Instilled 3-way Urethral 9,000 27,000 Bladder Irrigation Fluid - 11,050 Amount Drained 3-way Urethral 11,050 20,450 Date of Last Bowel Movement 09/29/17 # Bowel Movements 2 Result Diagrams: 10/01/17 03:10 10/01/17 03:10 Medications and IVs: Active Medications Generic Name Dose Route Start Last Admin Trade Name Freq PRN Reason Stop Dose Admin Acetaminophen 650 mg 09/29/17 19:30 Tylenol PO Q6H PRN PAIN 1-10 AND/OR FEVER >101F Al Hydroxide/Mg Hydroxide 30 ml 09/29/17 19:30 Milk Of Magnesia Liq PO Q12H PRN Mild Constipation Albuterol 1 ampul 09/29/17 19:30 Duoneb Neb (Prn) NEB Q2HR NEB PRN WHEEZING Bisacodyl 10 mg 09/29/17 19:30 Dulcolax Supp RECTAL DAILY PRN SEVERE CONSITIPATION Chlorhexidine Gluconate 3 pack 09/30/17 04:00 10/01/17 03:16 Chlorhexidine 2% Cloth TOPICAL 10/05/17 03:59 3 pack DAILY@0400 [facility] Administration Chlorhexidine Gluconate 3 pack 09/30/17 04:00 10/01/17 03:16 Chlorhexidine 2% Cloth TOPICAL 10/05/17 03:59 3 pack DAILY@0400 PRN Administration Extra cloth needed Famotidine 10 mg 09/29/17 21:00 09/30/17 20:00 Pepcid Pf Inj IV.PUSH 10 mg Q12HR [facility] Administration Magnesium Sulfate Inj 4 gm/ 100 mls @ 50 mls/hr 09/29/17 19:30 Sodium Chloride IV.SIG UNSCH PRN For Magnesium 0.9 - 1.1 mg/dL Sodium Chloride 1,000 mls @ 100 mls/hr 09/29/17 21:00 10/01/17 07:02 Ns Inj IV.CONT 100 mls/hr .Q10H [facility] Administration Potassium Chloride 20 meq in 100 mls @ 50 mls/hr 09/29/17 19:30 Kcl 20 Meq Premix Inj IV.SIG Q2H PRN For Potassium 3.3 - 3.5 mEq/L Potassium Chloride 40 meq in 100 mls @ 25 mls/hr 09/29/17 19:30 Kcl 40 Meq Premix Inj IV.SIG UNSCH PRN For Potassium 3.3 - 3.5 mEq/L Potassium Phosphate 30 mmol/ 260 mls @ 42 mls/hr 09/29/17 19:30 Sodium Chloride IV.SIG UNSCH PRN SEE LABEL COMMENTS Sodium Phosphate 30 mmol/ 260 mls @ 42 mls/hr 09/29/17 19:30 Sodium Chloride IV.SIG UNSCH PRN For Phosphorus < 2.5 mg/dL Magnesium Sulfate Inj 2 gm/ 100 mls @ 50 mls/hr 09/29/17 19:30 Sodium Chloride IV.SIG UNSCH PRN For Magnesium 1.2 - 1.6 mg/dL Potassium Chloride 40 meq in 100 mls @ 25 mls/hr 09/29/17 19:30 Kcl 40 Meq Premix Inj IV.SIG Q2H PRN For Potassium 2.8 - 3.2 mEq/L Potassium Chloride 20 meq in 100 mls @ 50 mls/hr 09/29/17 19:30 Kcl 20 Meq Premix Inj IV.SIG Q2H PRN For Potassium 2.8 - 3.2 mEq/L Ertapenem 1,000 mg/ Sodium 100 mls @ 100 mls/hr 09/30/17 21:00 09/30/17 22:39 Chloride IV.SIG Infused Q24H [facility] Infusion Lactulose 30 ml 09/29/17 19:30 Lactulose Liq PO DAILY PRN SEVERE CONSITIPATION Magnesium Oxide 800 mg 09/29/17 19:30 Mag-Ox PO UNSCH PRN For Magnesium 1.2 - 1.6 mg/dL Miscellaneous Medication 1 each 09/30/17 20:07 Asp Crit: Doc Esbl, Mdr A Baumannii Or P Aer OTHER 10/01/17 20:06 UNSCH PRN PHARMACY DOCUMENTATION Ondansetron HCl 4 mg 09/29/17 19:30 Zofran Inj IV.PUSH Q6H PRN NAUSEA OR VOMITING Potassium Bicarb/Potassium Chloride 50 meq 09/29/17 19:30 K-Lyte Cl Eff PO UNSCH PRN For Potassium 3.3 - 3.5 mEq/L Potassium Phosphate 2,000 mg 09/29/17 19:30 K-Phos Original PO Q4H PRN Phosphorus Less Than 2.5 mg/dL Potassium Phosphate 2,000 mg 09/29/17 19:30 K-Phos Original PO UNSCH PRN SEE LABEL COMMENTS Senna/Docusate Sodium 1 tab 09/29/17 21:00 09/30/17 20:00 Trina-Colace PO Not Given BID [facility] Sennosides 17.2 mg 09/29/17 19:30 Senokot PO Q12H PRN Moderate Constipation Sodium Chloride 2 ml 09/29/17 19:30 Ns Flush IV.FLUSH PRN PRN FLUSH AFTER USING IV ACCESS Sodium Chloride 2 ml 09/29/17 21:00 09/30/17 20:00 Ns Flush IV.FLUSH 2 ml BID [facility] Administration Objective Remarks: ABd:soft,nt,nd Bladder distended. 822 Abd:soft,nt,nd Pelaez: pink on CBI Assessment and Plan - Plan 89 y.o female with gross hematuria. Pelaez irrigated at bedside to clear Continue CBI for now. 10/01 89 y.o female with gross hematuria. Pelaez irrigated at bedside to clear Will start Amicar CBI now.
--- NOTE | 2017-10-01 08:56 | P.PNCC ---
Subjective Subjective Remarks/Hospital Course: Hospital Course: This is an 89yF with end-stage dementia who is nonverbal and resides in a healthcare facility. she is brought in by her daughter and medical decision- maker for 48h of hematuria. patient is nonverbal and no additional information is obtainable from the patient. per the daughter, she gets frequent UTIs and she notices this when the patient's clothes have a foul odor. She states she has noticed hematuria x 2 days. no other changes to her appetite or any other changes. Patient has severe dementia and is nonverbal. patient has not had any fevers or rigors that were noticeable to her daughter. in the ER, patient was hypotensive, tachycardic, with leukocytosis. given 3L crystalloid ivf without improvement in hemodynamics and started on norepinephrine for vasopressor support. CT abd/pelvis demonstrates staghorn calculi without hydronephrosis. pedraza catheter placed and started on CBI which improved hematuria. ROS unobtainable. Subjective: 09/30: clinically improving. levophed requirement decreasing. lactate clearing. looks much better. family states she appears more herself. cultures growing e. coli which is ESBL by DNA PCR. will start ertapenem while we await formal sensitivities. 10/01: off levophed. hematuria slightly worse. hgb dropped to 7 mg/dL this AM, receiving 1 unit prbc with recheck h&h. Objective Vital Signs / I&O: Vital Signs 09/30/17 09:00 09/30/17 12:00 09/30/17 16:00 Temperature 37.0 C 36.6 C Pulse Rate 83 125 H 77 Respiratory Rate 27 H 24 Blood Pressure 156/73 H 144/58 H Pulse Oximetry 95 99 09/30/17 20:00 09/30/17 20:15 09/30/17 21:00 Temperature 36.9 C Pulse Rate 87 74 Respiratory Rate 24 20 Blood Pressure 107/58 L 100/51 L Pulse Oximetry 94 L 95 95 09/30/17 22:00 09/30/17 23:00 10/01/17 00:00 Temperature 37.1 C Pulse Rate 105 H 79 80 Respiratory Rate 22 20 20 Blood Pressure 188/78 H 119/57 L 147/66 H Pulse Oximetry 95 96 95 10/01/17 01:00 10/01/17 02:00 10/01/17 03:00 Temperature Pulse Rate 124 H 79 79 Respiratory Rate 20 20 18 Blood Pressure 181/114 H 92/52 L 136/64 Pulse Oximetry 79 L 94 L 92 L 10/01/17 04:00 10/01/17 04:56 10/01/17 05:00 Temperature 37.2 C Pulse Rate 79 83 83 Respiratory Rate 18 18 18 Blood Pressure 146/61 H 147/65 H 148/67 H Pulse Oximetry 88 L 98 96 10/01/17 05:12 10/01/17 06:00 10/01/17 07:30 Temperature 36.6 C 36.6 C Pulse Rate 83 78 Respiratory Rate 18 18 Blood Pressure 142/64 H 159/68 H Pulse Oximetry 98 98 100 Intake & Output 09/30/17 10/01/17 10/01/17 18:59 06:59 18:59 Intake Total 2453.3 / 2453.3 100 / 100 Output Total 2099 Balance 353.3 / 353.3 100 / 100 Weight 71 kg Intake: IV 2453.3 / 2453.3 100 / 100 NS Inj 1,000 ML @ 100 mls/hr IV 1999 .CONT .Q10H [facility] Rx#:[id number] Calcium Chloride Inj 0.33 GM In 103.3 / 103.3 NS Inj 100 ML @ 103.3 mls/hr IV.SIG NOW ONE Rx#:[id number] INVanz Inj 1,000 MG In NS Inj 100 / 100 100 ML @ 100 mls/hr IV.SIG Q24H [facility] Rx#:[id number] Levophed-Dextrose 4 mg/250 ml 250 / 250 Drip 4 mg In 250 ml @ 7 MCG/MIN 26.25 mls/hr IV.SIG TITRATE PRN Rx#:[id number] Zosyn 3.375 GM Premix 50 ML @ 100 / 100 100 mls/hr IV.SIG Q6H [facility] Rx#: [id number] Intake (Blood Product) Amt 0 / 0 Rbc As-3 Leukoreduced Unit 0 / 0 [id number] Output: Urine Amount (Catheter) 2099 3-way Urethral 2099 Other: Bladder Irrigation Fluid - 9,000 3,000 Amount Instilled 3-way Urethral 9,000 27,000 Bladder Irrigation Fluid - 11,050 Amount Drained 3-way Urethral 11,050 20,450 Date of Last Bowel Movement 09/29/17 # Bowel Movements 2 Result Diagrams: 10/01/17 03:10 10/01/17 03:10 Objective Remarks: gen: frail elderly female, lying in bed, nonverbal at baseline. not moaning this AM. tracking with eyes. heent: nc. at. perrl. mucous membranes moist neck: no jvd. trachea midline. chest: room air. equal chest rise. cv: normal rate, regular rhythm. sinus. abd: soft, nontender, nondistended. no guarding. no CVA tenderness. extr: no edema. distal pulses 2+ neuro: awake, tracks with eyes. does not follow commands. nonverbal. neuro exam is baseline for patient as described by her daughter who is at bedside. Assessment and Plan - Assessment and Plan Plan: Assessment: 89yF with end-stage dementia and septic shock secondary to urinary tract infection/acute pyelonephritis. d/c mivf. recheck h&h after blood transfusion. f/u sensitivities for final abx regimen. can likely transfer out of ICU soon, now out of shock. Plan by systems: Neuro: end-stage severe dementia- nonverbal at baseline frequent neuro checks avoid long-acting sedatives Resp: IS at bedside wean o2 by nc for goal spo2 > 90% bedrest while in shock CV: Septic Shock- resolved d/c mivf Renal: Acute pyelonephritis Acute hematuria Acute kidney injury urology consult continue CBI: now adding Amicar to CBI to help with ongoing hematuria. abx as below trend Cr on daily bmp frequent uop monitoring FEN/GI: Acute protein calorie malnutrition- moderate Lactic Acidosis- resolved Acute anion-gap metabolic acidosis- resolved speech consult for swallow eval, advance diet after that daily bmp ICU electrolyte protocol Heme/ID: Anemia secondary to acute blood loss- worsening Septic Shock- resolved Acute pyelonephritis ESBL E. Coli UTI 1gm ertapenem iv q24h. continue to follow up formal sensitivities. s/p 1 unit prbc. recheck H&H. transfuse to keep hgb > 7. daily cbc Endo: Hyperglycemia of critical illness SSI Prophylaxis: SCDs hold pharmacologic dvt prophylaxis given active hematuria Lines: 09/29 right IJ TLC: d/c today if remains hemodynamically stable. 09/29 3-way CBI Pedraza Dispo: can likely transfer out of ICU tomorrow.
[2017-10-01 09:10] LABS: Hematocrit 24.7 % (35.0-46.0); Hemoglobin 8.1 gm/dL (11.6-15.3)
[2017-10-01] MEDS ORDERED: Sodium Chloride 0.9% Irr Bag 3,000 ML, Aminocaproic Acid Inj 3,000 MG IRRIGATION SCH ×2 (10:00)
[2017-10-01] MEDS: Famotidine PF Inj 20 MG/2 ML Vial IV.PUSH SCH ×2 (10:37→20:54)
[2017-10-01] MEDS: Senna/Docusate Sodium 8.6/50 MG Tablet PO SCH ×2 (10:39→20:54)
[2017-10-01] MEDS ORDERED: Labetalol HCl Inj 100 MG/20 ML Vial IV.PUSH ONE (16:45)
[2017-10-01 18:21] LABS: Hematocrit 24.1 % (35.0-46.0)
[2017-10-01] MEDS: Belladonna Alkaloid/Opium 60 MG Supp RECTAL PRN (19:05)
[2017-10-01] MEDS: Sodium Chloride 0.9% Irr Bag 3,000 ML, Aminocaproic Acid Inj 3,000 MG IRRIGATION SCH ×2 (20:57)
[2017-10-02] MEDS: Sod Chloride 0.9% Inj 1,000 ML IV.CONT SCH ×4 (00:55→09:12)
[2017-10-02] MEDS: Sodium Chloride 0.9% Irr Bag 3,000 ML, Aminocaproic Acid Inj 3,000 MG IRRIGATION SCH ×6 (01:40→09:59)
[2017-10-02] MEDS: Chlorhexidine Gluconate 2% 1 Pack (2 Cloths) TOPICAL SCH (03:21)
[2017-10-02 04:35] LABS: Hematocrit 22.6 % (35.0-46.0); Hemoglobin 7.3 gm/dL (11.6-15.3); Mean Corpuscular HGB Conc 32.3 % (32.0-36.0); Mean Corpuscular Volume 89.9 fL (80.0-100.0); Mean Platelet Volume 8.2 fL (7.0-11.0); Platelet Count 117 th/mm3 (150-450); Red Blood Count 2.51 mil/mm3 (4.00-5.30); Red Cell Distribution Width 15.2 % (11.6-17.2); White Blood Count 28.3 th/mm3 (4.0-11.0)
[2017-10-02 05:07] LABS: Calcium 7.2 mg/dL (8.5-10.1); Carbon Dioxide 19.5 meq/L (21.0-32.0); Potassium 3.5 meq/L (3.5-5.1)
[2017-10-02 05:21] LABS: Total Protein 5.8 g/dL (6.4-8.2)
[2017-10-02] MEDS ORDERED: Sodium Chlor 0.9% Inj 250 ML IV.SIG SCH (07:00)
[2017-10-02] MEDS: Senna/Docusate Sodium 8.6/50 MG Tablet PO SCH ×2 (09:11→20:08)
[2017-10-02] MEDS: Famotidine PF Inj 20 MG/2 ML Vial IV.PUSH SCH ×2 (09:11→20:08)
[2017-10-02] MEDS ORDERED: Potassium Chlor 40 mEq Premix 40 MEQ/100 ML PIGGYBACK IV.SIG ONE (10:15)
[2017-10-02] MEDS: Belladonna Alkaloid/Opium 60 MG Supp RECTAL PRN ×2 (10:23→16:30)
--- NOTE | 2017-10-02 10:44 | P.PNURO ---
Subjective Patient symptoms today: Pt seen and examined. Pt pulled out her pedraza last night. Objective Vital Signs: Vital Signs 10/01/17 12:00 10/01/17 16:00 10/01/17 16:27 Temperature 98.0 F 98.1 F Pulse Rate 77 79 Respiratory Rate 18 20 Blood Pressure 191/97 H 103/56 L Pulse Oximetry 97 96 98 10/01/17 20:00 10/01/17 21:46 10/02/17 00:00 Temperature 98 F 98.2 F Pulse Rate 72 67 Respiratory Rate 22 20 Blood Pressure 106/52 L 104/59 L Pulse Oximetry 97 96 97 10/02/17 04:00 10/02/17 07:13 10/02/17 07:31 Temperature 90 F L Pulse Rate 75 72 64 Respiratory Rate 22 Blood Pressure 133/87 153/67 H Pulse Oximetry 97 97 98 10/02/17 08:00 10/02/17 08:08 10/02/17 08:30 Temperature 98.6 F 98.6 F 98.0 F Pulse Rate 66 72 69 Respiratory Rate 20 18 24 Blood Pressure 154/64 H 154/64 H 159/72 H Pulse Oximetry 97 98 99 10/02/17 08:31 10/02/17 09:00 10/02/17 09:05 Temperature 98.0 F Pulse Rate 69 66 72 Respiratory Rate 20 20 Blood Pressure 159/72 H 149/73 H Pulse Oximetry 99 97 100 Intake & Output 10/01/17 10/02/17 10/02/17 18:59 06:59 18:59 Intake Total 1000 / 1000 1700 / 1700 1000 / 1000 Output Total 2100 / 2100 1450 / 1450 Balance -1100 / -1100 250 / 250 1000 / 1000 Weight 74.5 kg Intake: IV 1000 / 1000 100 / 100 1000 / 1000 NS Inj 1,000 ML @ 100 mls/hr IV 1000 / 1000 1000 / 1000 .CONT .Q10H [facility] Rx#:[id number] INVanz Inj 1,000 MG In NS Inj 100 / 100 100 ML @ 100 mls/hr IV.SIG Q24H [facility] Rx#:[id number] Oral 450 / 450 Other 1150 / 1150 Intake (Blood Product) Amt 0 / 0 Rbc As-3 Leukoreduced Unit 0 / 0 [id number] Bladder Irrigation Fluid - 0 / 0 Amount Retained 3-way Urethral 0 / 0 Output: Urine Amount (Catheter) 2099 1450 / 1450 3-way Urethral 2099 1450 / 1450 Other: Bladder Irrigation Fluid - 23,000 8,950 Amount Instilled 3-way Urethral 10,400 Bladder Irrigation Fluid - 10,400 Amount Drained Date of Last Bowel Movement 09/29/17 09/29/17 Result Diagrams: 10/02/17 04:20 10/02/17 04:20 Medications and IVs: Active Medications Generic Name Dose Route Start Last Admin Trade Name Freq PRN Reason Stop Dose Admin Acetaminophen 650 mg 09/29/17 19:30 Tylenol PO Q6H PRN PAIN 1-10 AND/OR FEVER >101F Al Hydroxide/Mg Hydroxide 30 ml 09/29/17 19:30 Milk Of Magnesia Liq PO Q12H PRN Mild Constipation Albuterol 1 ampul 09/29/17 19:30 10/02/17 09:01 Duoneb Neb (Prn) NEB 1 ampul Q2HR NEB PRN Administration WHEEZING Belladonna Alkaloids/Opium 60 mg 10/01/17 16:32 10/02/17 10:23 B & O Supp RECTAL 60 mg Q6H PRN Administration ABDOMINAL PAIN Bisacodyl 10 mg 09/29/17 19:30 Dulcolax Supp RECTAL DAILY PRN SEVERE CONSITIPATION Chlorhexidine Gluconate 3 pack 09/30/17 04:00 10/02/17 03:21 Chlorhexidine 2% Cloth TOPICAL 10/05/17 03:59 3 pack DAILY@0400 [facility] Administration Chlorhexidine Gluconate 3 pack 09/30/17 04:00 10/01/17 03:16 Chlorhexidine 2% Cloth TOPICAL 10/05/17 03:59 3 pack DAILY@0400 PRN Administration Extra cloth needed Sodium Chloride 3,000 ml/ 0 ml 10/01/17 16:30 10/02/17 09:59 Aminocaproic Acid 3,000 mg IRRIGATION 3,000 irrig.soln CONT [facility] Administration Famotidine 10 mg 09/29/17 21:00 10/02/17 09:11 Pepcid Pf Inj IV.PUSH 10 mg Q12HR [facility] Administration Magnesium Sulfate Inj 4 gm/ 100 mls @ 50 mls/hr 09/29/17 19:30 Sodium Chloride IV.SIG UNSCH PRN For Magnesium 0.9 - 1.1 mg/dL Sodium Chloride 1,000 mls @ 100 mls/hr 09/29/17 21:00 10/02/17 09:12 Ns Inj IV.CONT 100 mls/hr .Q10H [facility] Administration Potassium Chloride 20 meq in 100 mls @ 50 mls/hr 09/29/17 19:30 Kcl 20 Meq Premix Inj IV.SIG Q2H PRN For Potassium 3.3 - 3.5 mEq/L Potassium Chloride 40 meq in 100 mls @ 25 mls/hr 09/29/17 19:30 Kcl 40 Meq Premix Inj IV.SIG UNSCH PRN For Potassium 3.3 - 3.5 mEq/L Potassium Phosphate 30 mmol/ 260 mls @ 42 mls/hr 09/29/17 19:30 Sodium Chloride IV.SIG UNSCH PRN SEE LABEL COMMENTS Sodium Phosphate 30 mmol/ 260 mls @ 42 mls/hr 09/29/17 19:30 Sodium Chloride IV.SIG UNSCH PRN For Phosphorus < 2.5 mg/dL Magnesium Sulfate Inj 2 gm/ 100 mls @ 50 mls/hr 09/29/17 19:30 Sodium Chloride IV.SIG UNSCH PRN For Magnesium 1.2 - 1.6 mg/dL Potassium Chloride 40 meq in 100 mls @ 25 mls/hr 09/29/17 19:30 Kcl 40 Meq Premix Inj IV.SIG Q2H PRN For Potassium 2.8 - 3.2 mEq/L Potassium Chloride 20 meq in 100 mls @ 50 mls/hr 09/29/17 19:30 Kcl 20 Meq Premix Inj IV.SIG Q2H PRN For Potassium 2.8 - 3.2 mEq/L Ertapenem 1,000 mg/ Sodium 100 mls @ 100 mls/hr 09/30/17 21:00 10/02/17 00:38 Chloride IV.SIG Infused Q24H [facility] Infusion Sodium Chloride 250 mls @ 15 mls/hr 10/02/17 07:00 10/02/17 09:11 Ns Inj IV.SIG 10/02/17 23:39 15 mls/hr ONCE [facility] Administration Potassium Chloride 40 meq in 100 mls @ 25 mls/hr 10/02/17 10:15 Kcl 40 Meq Premix Inj IV.SIG 10/02/17 14:14 ONCE ONE Lactulose 30 ml 09/29/17 19:30 Lactulose Liq PO DAILY PRN SEVERE CONSITIPATION Magnesium Oxide 800 mg 09/29/17 19:30 Mag-Ox PO UNSCH PRN For Magnesium 1.2 - 1.6 mg/dL Ondansetron HCl 4 mg 09/29/17 19:30 Zofran Inj IV.PUSH Q6H PRN NAUSEA OR VOMITING Potassium Bicarb/Potassium Chloride 50 meq 09/29/17 19:30 K-Lyte Cl Eff PO UNSCH PRN For Potassium 3.3 - 3.5 mEq/L Potassium Phosphate 2,000 mg 09/29/17 19:30 K-Phos Original PO Q4H PRN Phosphorus Less Than 2.5 mg/dL Potassium Phosphate 2,000 mg 09/29/17 19:30 K-Phos Original PO UNSCH PRN SEE LABEL COMMENTS Senna/Docusate Sodium 1 tab 09/29/17 21:00 10/02/17 09:11 Trina-Colace PO 1 tab BID [facility] Administration Sennosides 17.2 mg 09/29/17 19:30 Senokot PO Q12H PRN Moderate Constipation Sodium Chloride 2 ml 09/29/17 19:30 Ns Flush IV.FLUSH PRN PRN FLUSH AFTER USING IV ACCESS Sodium Chloride 2 ml 09/29/17 21:00 10/02/17 09:11 Ns Flush IV.FLUSH 2 ml BID [facility] Administration Objective Remarks: ABd:soft,nt,nd Bladder distended. 822 Abd:soft,nt,nd Pedraza: pink on CBI 10/02 Abd:soft,nt,nd Pedraza: urine now pink on CBI Assessment and Plan - Plan 89 y.o female with gross hematuria. Pedraza irrigated at bedside to clear Continue CBI for now. 10/01 89 y.o female with gross hematuria. Pedraza irrigated at bedside to clear Will start Amicar CBI now. 10/02 89 y.o female with gross hematuria and staghorn calculus which is non obstructing Continue Amicar CBI for now Not sure that this drop in her Hgb is related to gross hematuria. Receiving one unit PRBC's now.
--- NOTE | 2017-10-02 12:04 | P.CONID ---
History of Present Illness Service: ID Consult date: 10/02/17 Requesting Physician: Rico John Reason for Consult: ESBL+ Primary Care Provider: Blue Holman MD Chief Complaint: hematuria History of Present Illness: pt is 89 yo female with dementia nonverbal @ b/l unable to provide history Hx obrained form the chart and other providers She presaented 3 days ago with chif complaint of vaginal bleeidn that turned out to be hematruia In the ER, patient was hypotensive, tachycardic, with leukocytosis. was fluid resuscitated and started on norepinephrine for vasopressor support. CT abd/pelvis demonstrates staghorn calculi without hydronephrosis. pedraza catheter placed and started on CBI which improved hematuria. Bloood cultures / ESBL+ E.coli and Proteus / She is now off pressors PMH: dementia, frequent UTIs' hypertension, dementia, history of coronary artery disease, on Plavix. PAST SURGICAL HISTORY: No surgical history is noted. Review of Systems unobtainable due to mental condition PMFSH - History History Provided By: Family Member - Medical / Surgical Hx Neg / Unobtainable Medical Problems Denied: Unable to Obtain - Medical History Medical History: Medical History (Last Updated 10/06/17 @ 11:35 by Ftaimah Stapleton MD) Dementia Duodenal ulcer Hypertension Malnutrition of moderate degree UTI (urinary tract infection) - Surgical History Surgical History: Surgical History (Last Updated 10/06/17 @ 11:35 by Fatimah Stapleton MD) History of esophagogastroduodenoscopy (EGD) - Family History Family History: Family History (Last Updated 10/06/17 @ 16:47 by Fatimah Stapleton MD) Sister Dementia Father Advanced age - Tobacco History Second Hand Smoke Exposure: Yes Smoking Status: Never smoker - Alcohol History How Often Do You Have a Drink Containing Alcohol: Never - Substance Use History Substance History: No History of Abuse - Travel History Recent Travel in the [place] Within the Last 8 Weeks: No Recent Travel Out of the Country Within the Last 8 Weeks: No - Immunization History Tetanus Immunization: Unable to Assess Medications and Allergies Active Medications: Active Medications Acetaminophen (Tylenol) 650 mg PO Q6H PRN PRN Reason: PAIN 1-10 AND/OR FEVER >101F Al Hydroxide/Mg Hydroxide (Milk Of Magnesia Liq) 30 ml PO Q12H PRN PRN Reason: Mild Constipation Albuterol (Duoneb Neb (Prn)) 1 ampul NEB Q2HR NEB PRN PRN Reason: WHEEZING Last Admin: 10/02/17 09:01 Dose: 1 ampul Belladonna Alkaloids/Opium (B & O Supp) 60 mg RECTAL Q6H PRN PRN Reason: ABDOMINAL PAIN Last Admin: 10/02/17 10:23 Dose: 60 mg Bisacodyl (Dulcolax Supp) 10 mg RECTAL DAILY PRN PRN Reason: SEVERE CONSITIPATION Chlorhexidine Gluconate (Chlorhexidine 2% Cloth) 3 pack TOPICAL DAILY@0400 WADE Stop: 10/05/17 03:59 Last Admin: 10/02/17 03:21 Dose: 3 pack Chlorhexidine Gluconate (Chlorhexidine 2% Cloth) 3 pack TOPICAL DAILY@0400 PRN PRN Reason: Extra cloth needed Stop: 10/05/17 03:59 Last Admin: 10/01/17 03:16 Dose: 3 pack Sodium Chloride 3,000 ml/ (Aminocaproic Acid 3,000 mg) 0 ml IRRIGATION CONT [facility] Last Admin: 10/02/17 09:59 Dose: 3,000 irrig.soln Famotidine (Pepcid Pf Inj) 10 mg IV.PUSH Q12HR [facility] Last Admin: 10/02/17 09:11 Dose: 10 mg Magnesium Sulfate Inj 4 gm/ (Sodium Chloride) 100 mls @ 50 mls/hr IV.SIG UNSCH PRN PRN Reason: For Magnesium 0.9 - 1.1 mg/dL Sodium Chloride (Ns Inj) 1,000 mls @ 100 mls/hr IV.CONT .Q10H [facility] Last Admin: 10/02/17 09:12 Dose: 100 mls/hr Potassium Chloride (Kcl 20 Meq Premix Inj) 20 meq in 100 mls @ 50 mls/hr IV.SIG Q2H PRN PRN Reason: For Potassium 3.3 - 3.5 mEq/L Potassium Chloride (Kcl 40 Meq Premix Inj) 40 meq in 100 mls @ 25 mls/hr IV.SIG UNSCH PRN PRN Reason: For Potassium 3.3 - 3.5 mEq/L Potassium Phosphate 30 mmol/ (Sodium Chloride) 260 mls @ 42 mls/hr IV.SIG UNSCH PRN PRN Reason: SEE LABEL COMMENTS Sodium Phosphate 30 mmol/ (Sodium Chloride) 260 mls @ 42 mls/hr IV.SIG UNSCH PRN PRN Reason: For Phosphorus < 2.5 mg/dL Magnesium Sulfate Inj 2 gm/ (Sodium Chloride) 100 mls @ 50 mls/hr IV.SIG UNSCH PRN PRN Reason: For Magnesium 1.2 - 1.6 mg/dL Potassium Chloride (Kcl 40 Meq Premix Inj) 40 meq in 100 mls @ 25 mls/hr IV.SIG Q2H PRN PRN Reason: For Potassium 2.8 - 3.2 mEq/L Potassium Chloride (Kcl 20 Meq Premix Inj) 20 meq in 100 mls @ 50 mls/hr IV.SIG Q2H PRN PRN Reason: For Potassium 2.8 - 3.2 mEq/L Ertapenem 1,000 mg/ Sodium (Chloride) 100 mls @ 100 mls/hr IV.SIG Q24H [facility] Last Infusion: 10/02/17 00:38 Dose: Infused Sodium Chloride (Ns Inj) 250 mls @ 15 mls/hr IV.SIG ONCE WADE Stop: 10/02/17 23:39 Last Admin: 10/02/17 09:11 Dose: 15 mls/hr Potassium Chloride (Kcl 40 Meq Premix Inj) 40 meq in 100 mls @ 25 mls/hr IV.SIG ONCE ONE Stop: 10/02/17 14:14 Last Admin: 10/02/17 10:46 Dose: 50 mls/hr Lactulose (Lactulose Liq) 30 ml PO DAILY PRN PRN Reason: SEVERE CONSITIPATION Magnesium Oxide (Mag-Ox) 800 mg PO UNSCH PRN PRN Reason: For Magnesium 1.2 - 1.6 mg/dL Ondansetron HCl (Zofran Inj) 4 mg IV.PUSH Q6H PRN PRN Reason: NAUSEA OR VOMITING Potassium Bicarb/Potassium Chloride (K-Lyte Cl Eff) 50 meq PO UNSCH PRN PRN Reason: For Potassium 3.3 - 3.5 mEq/L Potassium Phosphate (K-Phos Original) 2,000 mg PO Q4H PRN PRN Reason: Phosphorus Less Than 2.5 mg/dL Potassium Phosphate (K-Phos Original) 2,000 mg PO UNSCH PRN PRN Reason: SEE LABEL COMMENTS Senna/Docusate Sodium (Trina-Colace) 1 tab PO BID [facility] Last Admin: 10/02/17 09:11 Dose: 1 tab Sennosides (Senokot) 17.2 mg PO Q12H PRN PRN Reason: Moderate Constipation Sodium Chloride (Ns Flush) 2 ml IV.FLUSH PRN PRN PRN Reason: FLUSH AFTER USING IV ACCESS Sodium Chloride (Ns Flush) 2 ml IV.FLUSH BID [facility] Last Admin: 10/02/17 09:11 Dose: 2 ml Allergies Allergy/AdvReac Type Severity Reaction Status Date / Time No Known Allergies Allergy Unknown Uncoded 08/07/17 18:55 Exam Vital signs: Vital Signs 10/01/17 16:00 10/01/17 16:27 10/01/17 20:00 Temperature 98.1 F 98 F Pulse Rate 79 72 Respiratory Rate 20 22 Blood Pressure 103/56 L 106/52 L Pulse Oximetry 96 98 97 10/01/17 21:46 10/02/17 00:00 10/02/17 04:00 Temperature 98.2 F 90 F L Pulse Rate 67 75 Respiratory Rate 20 22 Blood Pressure 104/59 L 133/87 Pulse Oximetry 96 97 97 10/02/17 07:13 10/02/17 07:31 10/02/17 08:00 Temperature 98.6 F Pulse Rate 72 64 66 Respiratory Rate 20 Blood Pressure 153/67 H 154/64 H Pulse Oximetry 97 98 97 10/02/17 08:08 10/02/17 08:30 10/02/17 08:31 Temperature 98.6 F 98.0 F 98.0 F Pulse Rate 72 69 69 Respiratory Rate 18 24 20 Blood Pressure 154/64 H 159/72 H 159/72 H Pulse Oximetry 98 99 99 10/02/17 09:00 10/02/17 09:05 10/02/17 09:30 Temperature Pulse Rate 66 72 75 Respiratory Rate 20 28 H Blood Pressure 149/73 H 166/79 H Pulse Oximetry 97 100 97 10/02/17 10:00 10/02/17 10:01 10/02/17 10:31 Temperature Pulse Rate 73 75 78 Respiratory Rate 28 H 24 30 H Blood Pressure 159/73 H 147/75 H Pulse Oximetry 98 97 99 10/02/17 11:00 10/02/17 11:30 Temperature Pulse Rate 72 80 Respiratory Rate 12 15 Blood Pressure 158/73 H 149/70 H Pulse Oximetry 99 97 Intake & Output 10/01/17 10/02/17 10/02/17 18:59 06:59 18:59 Intake Total 1000 / 1000 1700 / 1700 1000 / 1000 Output Total 2099 / 2099 1450 / 1450 Balance -1100 / -1100 250 / 250 1000 / 1000 Weight 74.5 kg Intake: IV 1000 / 1000 100 / 100 1000 / 1000 NS Inj 1,000 ML @ 100 mls/hr IV 1000 / 1000 1000 / 1000 .CONT .Q10H WADE Rx#:[id number] INVanz Inj 1,000 MG In NS Inj 100 / 100 100 ML @ 100 mls/hr IV.SIG Q24H WADE Rx#:[id number] Oral 450 / 450 Other 1150 / 1150 Intake (Blood Product) Amt 0 / 0 Rbc As-3 Leukoreduced Unit 0 / 0 [id number] Bladder Irrigation Fluid - 0 / 0 Amount Retained 3-way Urethral 0 / 0 Output: Urine Amount (Catheter) 2099 1450 / 1450 3-way Urethral 2099 1450 / 1450 Other: Bladder Irrigation Fluid - 23,000 8,950 Amount Instilled 3-way Urethral 10,400 Bladder Irrigation Fluid - 10,400 Amount Drained Date of Last Bowel Movement 09/29/17 09/29/17 10/02/17 - Constitutional no acute distress, obese - Routine HEENT Exam Head: Present: normocephalic, atraumatic Eye: Present: EOMI, PERRL ENT: Present: mucous membranes moist, oropharynx clear - Routine Neck Exam Present: supple, full ROM - Routine Respiratory Exam Present: decreased breath sounds, CTA bilaterally - Routine Cardiovascular Exam Present: RRR, S1, S2 Comments: no murmurs, rubs or gallops - Routine Abdominal Exam Present: tenderness (moaning on palpation), distended - Routine Exam Comments: pedraza in place with bloody urine - Routine Extremities Exam Present: cyanosis (mild), edema (massive tight 4+ ), normal capillary refill - Routine Skin Exam Present: intact, cyanosis - Routine Neurological Exam non verbal; obtnded, responds with moaning. No eye contact - Routine Psychiatric Exam Present: unable to assess Results - Labs CBC & Chem 7: 10/10/17 05:05 10/10/17 05:05 Labs: Laboratory Results - last 24 hr 10/01/17 10/01/17 10/01/17 03:53 13:16 16:15 WBC RBC Hgb 8.0 L Hct 24.1 L MCV MCH MCHC RDW Plt Count MPV Sodium Potassium Chloride Carbon Dioxide Anion Gap BUN Creatinine Estimated GFR POC Glucose 108 Random Glucose Calcium Prot Corrected Calcium Total Protein MTS Gel Crossmatch See Detail 10/02/17 10/02/17 10/02/17 00:27 04:20 04:20 WBC 28.3 H RBC 2.51 L Hgb 7.3 L Hct 22.6 L MCV 89.9 MCH 29.0 MCHC 32.3 RDW 15.2 Plt Count 117 L MPV 8.2 Sodium 153 H Potassium 3.5 Chloride 125 H Carbon Dioxide 19.5 L Anion Gap 9 BUN 33 H Creatinine 1.10 H Estimated GFR 47 L POC Glucose 146 H Random Glucose 146 H Calcium 7.2 L* Prot Corrected Calcium 7.9 L Total Protein 5.8 L MTS Gel Crossmatch 10/02/17 06:22 WBC RBC Hgb Hct MCV MCH MCHC RDW Plt Count MPV Sodium Potassium Chloride Carbon Dioxide Anion Gap BUN Creatinine Estimated GFR POC Glucose Random Glucose Calcium Prot Corrected Calcium Total Protein MTS Gel Crossmatch See Detail - Imaging Abdomen/Pelvis CT 09/29/17 00:00 CONCLUSION: Staghorn calculus in the left kidney. Chest X-Ray 09/29/17 00:00 CONCLUSION: No evidence of pneumothorax status post placement of right central line. Abdomen/Bladder Ultrasound 09/29/17 12:23 CONCLUSION: 1. Suspected 3 nonobstructing left renal stones measuring up to 16 mm. 2. No other significant abnormality is identified. There is a simple cyst in the lower pole the right kidney measuring 18 mm. Abdomen X-Ray 10/02/17 00:00 CONCLUSION: 1. Bowel gas pattern is within normal limits. There are no findings to indicate obstruction. 2. Staghorn-type calculus in the left kidney is again visualized. Assessment and Plan - Plan ESBL + E.coli sepsis 2/2 UTI Staghorn kidney stone cont Ertapenem x 2 weeks; longer course with inadequate clinical response dw Tony Sanchez
--- NOTE | 2017-10-02 13:21 | XR ---
EXAM DATE: 10/02/2017 1:14 PM EDT AGE/SEX: 89 years / Female INDICATIONS: Distention. CLINICAL DATA: This is the patient's subsequent encounter. Patient reports that signs and symptoms h ave been present for 3 days and indicates a pain score of Nonresponsive. MEDICAL/SURGICAL HISTORY: Hypertension. Dementia. None. COMPARISON: No prior exams available for comparison. FINDINGS: 2 supine frontal views of the abdomen demonstrate air within small and large bowel in a nonobstructi ve pattern. No organomegaly is appreciated. The staghorn-type calculus in the left kidney is visualiz ed. Catheter overlies the urinary bladder. There are degenerative changes of the thoracic and lumbar spine with levoscoliosis of the lumbar spine. Lung bases demonstrate no acute finding. Hardware is pr esent at the right proximal femur related to prior ORIF. CONCLUSION: 1. Bowel gas pattern is within normal limits. There are no findings to indicate obstruction. 2. Staghorn-type calculus in the left kidney is again visualized. Electronically signed by: Malik Goff MD 10/02/2017 1:20 PM EDT
[2017-10-02] MEDS: KCL 20 mEq/NACL 0.45% Inj 1,000 ML IV.CONT SCH ×2 (13:50→23:55)
--- NOTE | 2017-10-02 15:44 | P.PNIM ---
Subjective Interval history: Patient nonverbal, appears to mumble. Tried Nepali and Marshallese with same response. She appears comfortable however. Physical Exam Vital signs: Vital Signs 10/01/17 16:00 10/01/17 16:27 10/01/17 20:00 Temperature 98.1 F 98 F Pulse Rate 79 72 Respiratory Rate 20 22 Blood Pressure 103/56 L 106/52 L Pulse Oximetry 96 98 97 10/01/17 21:46 10/02/17 00:00 10/02/17 04:00 Temperature 98.2 F 90 F L Pulse Rate 67 75 Respiratory Rate 20 22 Blood Pressure 104/59 L 133/87 Pulse Oximetry 96 97 97 10/02/17 07:13 10/02/17 07:31 10/02/17 08:00 Temperature 98.6 F Pulse Rate 72 64 66 Respiratory Rate 20 Blood Pressure 153/67 H 154/64 H Pulse Oximetry 97 98 99 10/02/17 08:08 10/02/17 08:30 10/02/17 08:31 Temperature 98.6 F 98.0 F 98.0 F Pulse Rate 72 69 69 Respiratory Rate 18 24 20 Blood Pressure 154/64 H 159/72 H 159/72 H Pulse Oximetry 98 99 99 10/02/17 09:00 10/02/17 09:05 10/02/17 09:30 Temperature Pulse Rate 66 72 75 Respiratory Rate 20 28 H Blood Pressure 149/73 H 166/79 H Pulse Oximetry 97 100 97 10/02/17 10:00 10/02/17 10:01 10/02/17 10:31 Temperature Pulse Rate 73 75 78 Respiratory Rate 28 H 24 30 H Blood Pressure 159/73 H 147/75 H Pulse Oximetry 98 97 99 10/02/17 11:00 10/02/17 11:30 Temperature Pulse Rate 72 80 Respiratory Rate 12 15 Blood Pressure 158/73 H 149/70 H Pulse Oximetry 99 97 Intake & Output 10/01/17 10/02/17 10/02/17 18:59 06:59 18:59 Intake Total 1000 / 1000 1700 / 1700 1000 / 1000 Output Total 2100 / 2100 1450 / 1450 Balance -1100 / -1100 250 / 250 1000 / 1000 Weight 74.5 kg Intake: IV 1000 / 1000 100 / 100 1000 / 1000 NS Inj 1,000 ML @ 100 mls/hr IV 1000 / 1000 1000 / 1000 .CONT .Q10H [facility] Rx#:[id number] INVanz Inj 1,000 MG In NS Inj 100 / 100 100 ML @ 100 mls/hr IV.SIG Q24H [facility] Rx#:[id number] Oral 450 / 450 Other 1150 / 1150 Intake (Blood Product) Amt 0 / 0 Rbc As-3 Leukoreduced Unit 0 / 0 [id number] Bladder Irrigation Fluid - 0 / 0 Amount Retained 3-way Urethral 0 / 0 Output: Urine Amount (Catheter) 2099 1450 / 1450 3-way Urethral 2099 1450 / 1450 Other: Bladder Irrigation Fluid - 23,000 8,950 Amount Instilled 3-way Urethral 10,400 Bladder Irrigation Fluid - 10,400 Amount Drained Date of Last Bowel Movement 09/29/17 09/29/17 10/02/17 Narrative: GENERAL: Patient sitting up in bed. Nonverbal. Hematuria noted in Pelaez bag. SKIN: Warm and dry. HEAD: Normocephalic. EYES: No scleral icterus. No injection or drainage. NECK: Supple, trachea midline. No JVD. CARDIOVASCULAR: Regular rate and rhythm without murmurs, gallops, or rubs. RESPIRATORY: Breath sounds equal bilaterally. No accessory muscle use. GASTROINTESTINAL: Abdomen soft, non-tender, nondistended. MUSCULOSKELETAL: No cyanosis. Trace peripheral edema. BACK: Nontender without obvious deformity. No CVA tenderness. - Urinary Catheter Management Straight Cath placed during this visit: yes Reason for continuing: Gross Hematuria Insertion date: 09/29/17 Insertion time: 14:51 3-way Urethral Cath placed during this visit: yes Reason for continuing: Gross Hematuria Insertion date: 10/02/17 Insertion time: 00:00 Results - Labs CBC & Chem 7: 10/02/17 04:20 10/02/17 04:20 Laboratory Results - last 24 hr 10/01/17 10/01/17 10/02/17 03:53 16:15 00:27 WBC RBC Hgb 8.0 L Hct 24.1 L MCV MCH MCHC RDW Plt Count MPV Sodium Potassium Chloride Carbon Dioxide Anion Gap BUN Creatinine Estimated GFR POC Glucose 146 H Random Glucose Calcium Prot Corrected Calcium Total Protein MTS Gel Crossmatch See Detail 10/02/17 10/02/17 10/02/17 04:20 04:20 06:22 WBC 28.3 H RBC 2.51 L Hgb 7.3 L Hct 22.6 L MCV 89.9 MCH 29.0 MCHC 32.3 RDW 15.2 Plt Count 117 L MPV 8.2 Sodium 153 H Potassium 3.5 Chloride 125 H Carbon Dioxide 19.5 L Anion Gap 9 BUN 33 H Creatinine 1.10 H Estimated GFR 47 L POC Glucose Random Glucose 146 H Calcium 7.2 L* Prot Corrected Calcium 7.9 L Total Protein 5.8 L MTS Gel Crossmatch See Detail 10/02/17 12:53 WBC RBC Hgb Hct MCV MCH MCHC RDW Plt Count MPV Sodium Potassium Chloride Carbon Dioxide Anion Gap BUN Creatinine Estimated GFR POC Glucose 109 Random Glucose Calcium Prot Corrected Calcium Total Protein MTS Gel Crossmatch Microbiology 09/29/17 16:30 Blood - Peripheral Aerobic Blood Culture - Preliminary Escherichia coli ESBL positive 09/29/17 16:30 Blood - Peripheral Anaerobic Blood Culture - Preliminary gram negative rods 09/29/17 16:10 Blood - Peripheral Aerobic Blood Culture - Preliminary Escherichia coli ESBL positive Proteus species 09/29/17 16:10 Blood - Peripheral Anaerobic Blood Culture - Final Escherichia coli ESBL positive - Imaging Impressions Abdomen X-Ray 10/02/17 00:00 CONCLUSION: 1. Bowel gas pattern is within normal limits. There are no findings to indicate obstruction. 2. Staghorn-type calculus in the left kidney is again visualized. Assessment and Plan - Plan Assessment: 89yF with end-stage dementia and septic shock secondary to urinary tract infection/acute pyelonephritis. d/c mivf. recheck h&h after blood transfusion. f/u sensitivities for final abx regimen. can likely transfer out of ICU soon, now out of shock. Plan by systems: Neuro: end-stage severe dementia- nonverbal at baseline frequent neuro checks avoid long-acting sedatives Resp: IS at bedside wean o2 by nc for goal spo2 > 90% bedrest while in shock CV: Septic Shock- resolved d/c mivf Renal: Acute pyelonephritis Acute hematuria Acute kidney injury urology consult continue CBI: now adding Amicar to CBI to help with ongoing hematuria. abx as below trend Cr on daily bmp frequent uop monitoring = 10/02. Continues with hematuria and anemia likely secondary to hematuria, staghorn calculi. Discussed with Dr. Summers. Will continue on continuous bladder irrigation as per urology. FEN/GI: Acute protein calorie malnutrition- moderate Lactic Acidosis- resolved Acute anion-gap metabolic acidosis- resolved speech consult for swallow eval, advance diet after that daily [facility] ICU electrolyte protocol //Hypernatremia. = 10/02 sodium 153. Will start on half normal saline. Heme/ID: Anemia secondary to acute blood loss- worsening Septic Shock- resolved Acute pyelonephritis ESBL E. Coli UTI 1gm ertapenem iv q24h. continue to follow up formal sensitivities. s/p 1 unit prbc. recheck H&H. transfuse to keep hgb > 7. daily cbc = 10/02. Hemoglobin down to 7. 3, likely secondary to hematuria. 1 unit of PRBCs ordered today. Follow-up tomorrow. Continue antibiotics for ESBL E. coli. Endo: Hyperglycemia of critical illness SSI = 10/02. Glucose appears stable. Discontinue tomorrow if continues stable. Prophylaxis: SCDs hold pharmacologic dvt prophylaxis given active hematuria Lines: = 10/02 central line has been discontinued. 09/29 3-way CBI Pelaez Dispo: can likely transfer out of ICU tomorrow. Discharge Planning: Continues on IV antibiotics for ESBL E. coli. We will need ID clearance We will need urology clearance. SNF at discharge.
[2017-10-03] MEDS: Sodium Chloride 0.9% Irr Bag 3,000 ML, Aminocaproic Acid Inj 3,000 MG IRRIGATION SCH ×2 (00:51)
[2017-10-03] MEDS: Chlorhexidine Gluconate 2% 1 Pack (2 Cloths) TOPICAL SCH (05:03)
[2017-10-03] MEDS: Belladonna Alkaloid/Opium 60 MG Supp RECTAL PRN (05:04)
[2017-10-03 07:19] LABS: Hematocrit 28.5 % (35.0-46.0); Hemoglobin 9.2 gm/dL (11.6-15.3); Mean Corpuscular HGB Conc 32.4 % (32.0-36.0); Mean Corpuscular Volume 89.3 fL (80.0-100.0); Mean Platelet Volume 9.2 fL (7.0-11.0); Platelet Count 102 th/mm3 (150-450); Red Blood Count 3.19 mil/mm3 (4.00-5.30); Red Cell Distribution Width 16.4 % (11.6-17.2); White Blood Count 18.9 th/mm3 (4.0-11.0)
[2017-10-03 07:42] LABS: Calcium 7.3 mg/dL (8.5-10.1); Carbon Dioxide 20.5 meq/L (21.0-32.0); Potassium 4.2 meq/L (3.5-5.1)
[2017-10-03 08:02] LABS: Total Protein 6.3 g/dL (6.4-8.2)
[2017-10-03] MEDS: Senna/Docusate Sodium 8.6/50 MG Tablet PO SCH ×2 (08:11→20:06)
[2017-10-03] MEDS: Famotidine PF Inj 20 MG/2 ML Vial IV.PUSH SCH ×2 (08:11→20:02)
--- NOTE | 2017-10-03 09:45 | P.PNURO ---
Subjective Patient symptoms today: Pt seen and examined. Urine clearing. Nurse noted black tarry stools yesterday. Hgb at 9. Objective Vital Signs: Vital Signs 10/02/17 10:00 10/02/17 10:01 10/02/17 10:31 Temperature Pulse Rate 73 75 78 Respiratory Rate 28 H 24 30 H Blood Pressure 159/73 H 147/75 H Pulse Oximetry 98 97 99 10/02/17 11:00 10/02/17 11:30 10/02/17 12:00 Temperature Pulse Rate 72 80 81 Respiratory Rate 12 15 16 Blood Pressure 158/73 H 149/70 H 143/97 H Pulse Oximetry 99 97 98 10/02/17 12:30 10/02/17 13:00 10/02/17 13:30 Temperature Pulse Rate 76 75 82 Respiratory Rate 13 17 30 H Blood Pressure 143/66 H 147/84 H 149/105 H Pulse Oximetry 97 98 97 10/02/17 14:00 10/02/17 14:30 10/02/17 15:00 Temperature Pulse Rate 75 81 74 Respiratory Rate 20 20 18 Blood Pressure 144/67 H 170/78 H Pulse Oximetry 98 97 97 10/02/17 15:04 10/02/17 15:30 10/02/17 16:00 Temperature 99.0 F Pulse Rate 74 72 88 Respiratory Rate 22 17 19 Blood Pressure 171/71 H 147/73 H 159/107 H Pulse Oximetry 97 98 93 L 10/02/17 16:15 10/02/17 16:31 10/02/17 17:00 Temperature Pulse Rate 92 H 97 H 81 Respiratory Rate 20 27 H 16 Blood Pressure 168/79 H 177/121 H Pulse Oximetry 93 L 92 L 94 L 10/02/17 17:01 10/02/17 17:30 10/02/17 18:00 Temperature Pulse Rate 88 84 84 Respiratory Rate 17 16 18 Blood Pressure 141/75 H 150/70 H 133/68 Pulse Oximetry 95 96 96 10/02/17 18:30 10/02/17 19:00 10/02/17 19:31 Temperature Pulse Rate 83 80 76 Respiratory Rate 15 15 20 Blood Pressure 142/61 H 133/66 156/70 H Pulse Oximetry 97 97 98 10/02/17 20:00 10/02/17 20:30 10/02/17 21:00 Temperature 98.2 F Pulse Rate 76 78 80 Respiratory Rate 16 19 33 H Blood Pressure 139/75 152/84 H 163/81 H Pulse Oximetry 99 98 97 10/02/17 21:31 10/02/17 22:00 10/02/17 22:01 Temperature Pulse Rate 79 82 82 Respiratory Rate 17 17 16 Blood Pressure 158/70 H 133/70 Pulse Oximetry 96 96 96 10/02/17 22:31 10/02/17 23:00 10/02/17 23:01 Temperature Pulse Rate 79 77 82 Respiratory Rate 18 16 18 Blood Pressure 161/70 H 136/74 Pulse Oximetry 96 95 96 10/02/17 23:30 10/03/17 00:00 10/03/17 00:01 Temperature 98 F Pulse Rate 79 80 80 Respiratory Rate 18 18 23 Blood Pressure 137/79 155/70 H Pulse Oximetry 95 95 95 10/03/17 00:30 10/03/17 01:00 10/03/17 01:30 Temperature Pulse Rate 80 78 83 Respiratory Rate 15 17 23 Blood Pressure 157/73 H 158/70 H 156/70 H Pulse Oximetry 95 96 96 10/03/17 02:00 10/03/17 02:31 10/03/17 03:00 Temperature Pulse Rate 82 80 81 Respiratory Rate 17 17 18 Blood Pressure 166/75 H 155/68 H 161/70 H Pulse Oximetry 95 95 95 10/03/17 03:31 10/03/17 04:00 10/03/17 04:01 Temperature 98.1 F Pulse Rate 78 79 80 Respiratory Rate 16 17 16 Blood Pressure 154/74 H 154/72 H Pulse Oximetry 96 95 95 Intake & Output 10/02/17 10/03/17 10/03/17 18:59 06:59 18:59 Intake Total 2390 / 2390 1100 / 1100 Output Total 1200 / 1200 1050 / 1050 Balance 1190 / 1190 50 / 50 Weight 76 kg Intake: IV 1000 / 1000 1100 / 1100 Potassium Chlor 20 mEq/NACL 0. 1000 / 1000 45% Inj 1,000 ML @ 100 mls/hr IV.CONT .Q10H WADE Rx#:[id number] NS Inj 1,000 ML @ 100 mls/hr IV 1000 / 1000 .CONT .Q10H WADE Rx#:[id number] INVanz Inj 1,000 MG In NS Inj 100 / 100 100 ML @ 100 mls/hr IV.SIG Q24H WADE Rx#:[id number] Oral 240 / 240 Other 1150 / 1150 Intake (Blood Product) Amt 0 / 0 Rbc As-3 Leukoreduced Unit 0 / 0 [id number] Bladder Irrigation Fluid - 0 / 0 Amount Retained 3-way Urethral 0 / 0 Output: Urine Amount (Catheter) 1200 / 1200 1050 / 1050 3-way Urethral 1200 / 1200 1050 / 1050 Other: Bladder Irrigation Fluid - 3,000 1,550 Amount Instilled 3-way Urethral 3,000 1,550 Bladder Irrigation Fluid - 4,200 2,600 Amount Drained 3-way Urethral 4,200 2,600 Date of Last Bowel Movement 10/02/17 10/03/17 # Bowel Movements 2 1 # Incontinent Bowel Movements 1 Result Diagrams: 10/03/17 03:18 10/03/17 03:18 Imaging: Impressions Abdomen X-Ray 10/02/17 00:00 CONCLUSION: 1. Bowel gas pattern is within normal limits. There are no findings to indicate obstruction. 2. Staghorn-type calculus in the left kidney is again visualized. Medications and IVs: Active Medications Generic Name Dose Route Start Last Admin Trade Name Freq PRN Reason Stop Dose Admin Acetaminophen 650 mg 09/29/17 19:30 Tylenol PO Q6H PRN PAIN 1-10 AND/OR FEVER >101F Al Hydroxide/Mg Hydroxide 30 ml 09/29/17 19:30 Milk Of Magnesia Liq PO Q12H PRN Mild Constipation Albuterol 1 ampul 09/29/17 19:30 10/02/17 09:01 Duoneb Neb (Prn) NEB 1 ampul Q2HR NEB PRN Administration WHEEZING Belladonna Alkaloids/Opium 60 mg 10/01/17 16:32 10/03/17 05:04 B & O Supp RECTAL 60 mg Q6H PRN Administration ABDOMINAL PAIN Bisacodyl 10 mg 09/29/17 19:30 Dulcolax Supp RECTAL DAILY PRN SEVERE CONSITIPATION Chlorhexidine Gluconate 3 pack 09/30/17 04:00 10/03/17 05:03 Chlorhexidine 2% Cloth TOPICAL 10/05/17 03:59 3 pack DAILY@0400 WADE Administration Chlorhexidine Gluconate 3 pack 09/30/17 04:00 10/01/17 03:16 Chlorhexidine 2% Cloth TOPICAL 10/05/17 03:59 3 pack DAILY@0400 PRN Administration Extra cloth needed Sodium Chloride 3,000 ml/ 0 ml 10/01/17 16:30 10/03/17 00:51 Aminocaproic Acid 3,000 mg IRRIGATION 3,000 irrig.soln CONT WADE Administration Famotidine 10 mg 09/29/17 21:00 10/03/17 08:11 Pepcid Pf Inj IV.PUSH 10 mg Q12HR WADE Administration Magnesium Sulfate Inj 4 gm/ 100 mls @ 50 mls/hr 09/29/17 19:30 Sodium Chloride IV.SIG UNSCH PRN For Magnesium 0.9 - 1.1 mg/dL Potassium Chloride 20 meq in 100 mls @ 50 mls/hr 09/29/17 19:30 Kcl 20 Meq Premix Inj IV.SIG Q2H PRN For Potassium 3.3 - 3.5 mEq/L Potassium Chloride 40 meq in 100 mls @ 25 mls/hr 09/29/17 19:30 Kcl 40 Meq Premix Inj IV.SIG UNSCH PRN For Potassium 3.3 - 3.5 mEq/L Potassium Phosphate 30 mmol/ 260 mls @ 42 mls/hr 09/29/17 19:30 Sodium Chloride IV.SIG UNSCH PRN SEE LABEL COMMENTS Sodium Phosphate 30 mmol/ 260 mls @ 42 mls/hr 09/29/17 19:30 Sodium Chloride IV.SIG UNSCH PRN For Phosphorus < 2.5 mg/dL Magnesium Sulfate Inj 2 gm/ 100 mls @ 50 mls/hr 09/29/17 19:30 Sodium Chloride IV.SIG UNSCH PRN For Magnesium 1.2 - 1.6 mg/dL Potassium Chloride 40 meq in 100 mls @ 25 mls/hr 09/29/17 19:30 Kcl 40 Meq Premix Inj IV.SIG Q2H PRN For Potassium 2.8 - 3.2 mEq/L Potassium Chloride 20 meq in 100 mls @ 50 mls/hr 09/29/17 19:30 Kcl 20 Meq Premix Inj IV.SIG Q2H PRN For Potassium 2.8 - 3.2 mEq/L Ertapenem 1,000 mg/ Sodium 100 mls @ 100 mls/hr 09/30/17 21:00 10/02/17 23:17 Chloride IV.SIG Infused Q24H WADE Infusion Potassium Chloride/Sodium Chloride 1,000 mls @ 100 mls/hr 10/02/17 13:30 23:55 Potassium Chlor 20 Meq/Nacl 0.45% Inj IV.CONT 100 mls/hr .Q10H WADE Administration Lactulose 30 ml 09/29/17 19:30 Lactulose Liq PO DAILY PRN SEVERE CONSITIPATION Magnesium Oxide 800 mg 09/29/17 19:30 Mag-Ox PO UNSCH PRN For Magnesium 1.2 - 1.6 mg/dL Ondansetron HCl 4 mg 09/29/17 19:30 Zofran Inj IV.PUSH Q6H PRN NAUSEA OR VOMITING Potassium Bicarb/Potassium Chloride 50 meq 09/29/17 19:30 K-Lyte Cl Eff PO UNSCH PRN For Potassium 3.3 - 3.5 mEq/L Potassium Phosphate 2,000 mg 09/29/17 19:30 K-Phos Original PO Q4H PRN Phosphorus Less Than 2.5 mg/dL Potassium Phosphate 2,000 mg 09/29/17 19:30 K-Phos Original PO UNSCH PRN SEE LABEL COMMENTS Senna/Docusate Sodium 1 tab 09/29/17 21:00 10/03/17 08:11 Trina-Colace PO Not Given BID [facility] Sennosides 17.2 mg 09/29/17 19:30 Senokot PO Q12H PRN Moderate Constipation Sodium Chloride 2 ml 09/29/17 19:30 Ns Flush IV.FLUSH PRN PRN FLUSH AFTER USING IV ACCESS Sodium Chloride 2 ml 09/29/17 21:00 10/03/17 08:11 Ns Flush IV.FLUSH 2 ml BID WADE Administration Objective Remarks: ABd:soft,nt,nd Bladder distended. 822 Abd:soft,nt,nd Pelaez: pink on CBI 10/02 Abd:soft,nt,nd Pelaez: urine now pink on CBI 10/03 Abd:soft,nt,nd Pelaez: urine now pink on CBI Assessment and Plan - Plan 89 y.o female with gross hematuria. Pelaez irrigated at bedside to clear Continue CBI for now. 10/01 89 y.o female with gross hematuria. Pelaez irrigated at bedside to clear Will start Amicar CBI now. 10/02 89 y.o female with gross hematuria and staghorn calculus which is non obstructing Continue Amicar CBI for now Not sure that this drop in her Hgb is related to gross hematuria. Receiving one unit PRBC's now. 10/03 89 y.o female with gross hematuria and staghorn calculus which is non obstructing Continue Amicar CBI for now Consider GI consult for black stools.
[2017-10-03] MEDS: KCL 20 mEq/NACL 0.45% Inj 1,000 ML IV.CONT SCH (12:16)
--- NOTE | 2017-10-03 13:35 | P.PNIM ---
Subjective Interval history: Number left before. Nursing notes black stool today. Hematuria however has improved. Physical Exam Vital signs: Vital Signs 10/02/17 14:00 10/02/17 14:30 10/02/17 15:00 Temperature Pulse Rate 75 81 74 Respiratory Rate 20 20 18 Blood Pressure 144/67 H 170/78 H Pulse Oximetry 98 97 97 10/02/17 15:04 10/02/17 15:30 10/02/17 16:00 Temperature 99.0 F Pulse Rate 74 72 88 Respiratory Rate 22 17 19 Blood Pressure 171/71 H 147/73 H 159/107 H Pulse Oximetry 97 98 93 L 10/02/17 16:15 10/02/17 16:31 10/02/17 17:00 Temperature Pulse Rate 92 H 97 H 81 Respiratory Rate 20 27 H 16 Blood Pressure 168/79 H 177/121 H Pulse Oximetry 93 L 92 L 94 L 10/02/17 17:01 10/02/17 17:30 10/02/17 18:00 Temperature Pulse Rate 88 84 84 Respiratory Rate 17 16 18 Blood Pressure 141/75 H 150/70 H 133/68 Pulse Oximetry 95 96 96 10/02/17 18:30 10/02/17 19:00 10/02/17 19:31 Temperature Pulse Rate 83 80 76 Respiratory Rate 15 15 20 Blood Pressure 142/61 H 133/66 156/70 H Pulse Oximetry 97 97 98 10/02/17 20:00 10/02/17 20:30 10/02/17 21:00 Temperature 98.2 F Pulse Rate 76 78 80 Respiratory Rate 16 19 33 H Blood Pressure 139/75 152/84 H 163/81 H Pulse Oximetry 99 98 97 10/02/17 21:31 10/02/17 22:00 10/02/17 22:01 Temperature Pulse Rate 79 82 82 Respiratory Rate 17 17 16 Blood Pressure 158/70 H 133/70 Pulse Oximetry 96 96 96 10/02/17 22:31 10/02/17 23:00 10/02/17 23:01 Temperature Pulse Rate 79 77 82 Respiratory Rate 18 16 18 Blood Pressure 161/70 H 136/74 Pulse Oximetry 96 95 96 10/02/17 23:30 10/03/17 00:00 10/03/17 00:01 Temperature 98 F Pulse Rate 79 80 80 Respiratory Rate 18 18 23 Blood Pressure 137/79 155/70 H Pulse Oximetry 95 95 95 10/03/17 00:30 10/03/17 01:00 10/03/17 01:30 Temperature Pulse Rate 80 78 83 Respiratory Rate 15 17 23 Blood Pressure 157/73 H 158/70 H 156/70 H Pulse Oximetry 95 96 96 10/03/17 02:00 10/03/17 02:31 10/03/17 03:00 Temperature Pulse Rate 82 80 81 Respiratory Rate 17 17 18 Blood Pressure 166/75 H 155/68 H 161/70 H Pulse Oximetry 95 95 95 10/03/17 03:31 10/03/17 04:00 10/03/17 04:01 Temperature 98.1 F Pulse Rate 78 79 80 Respiratory Rate 16 17 16 Blood Pressure 154/74 H 154/72 H Pulse Oximetry 96 95 95 10/03/17 04:30 10/03/17 05:00 10/03/17 05:01 Temperature Pulse Rate 78 83 82 Respiratory Rate 16 25 H 22 Blood Pressure 151/70 H 154/75 H Pulse Oximetry 95 95 95 10/03/17 05:31 10/03/17 06:00 10/03/17 06:30 Temperature Pulse Rate 89 81 79 Respiratory Rate 30 H 21 17 Blood Pressure 152/79 H 153/70 H 139/67 Pulse Oximetry 92 L 92 L 93 L 10/03/17 07:00 10/03/17 07:31 10/03/17 08:00 Temperature 99.2 F Pulse Rate 77 79 76 Respiratory Rate 13 17 17 Blood Pressure 130/66 163/67 H Pulse Oximetry 93 L 93 L 94 L 10/03/17 08:09 10/03/17 08:31 10/03/17 09:00 Temperature Pulse Rate 79 72 73 Respiratory Rate 13 15 13 Blood Pressure 130/74 145/65 H 139/72 Pulse Oximetry 94 L 95 94 L 10/03/17 10:00 10/03/17 11:00 10/03/17 12:00 Temperature 98.4 F Pulse Rate 74 76 74 Respiratory Rate 13 15 16 Blood Pressure 139/75 140/66 155/68 H Pulse Oximetry 96 96 98 Intake & Output 10/02/17 10/03/17 10/03/17 18:59 06:59 18:59 Intake Total 2490 / 2490 1100 / 1100 1950 / 1950 Output Total 1200 / 1200 1050 / 1050 Balance 1290 / 1290 50 / 50 1949 / 1949 Weight 76 kg Intake: IV 1100 / 1100 1100 / 1100 1949 / 1949 Potassium Chlor 20 mEq/NACL 0. 1000 / 1000 1000 / 1000 45% Inj 1,000 ML @ 100 mls/hr IV.CONT .Q10H WADE Rx#:[id number] NS Inj 1,000 ML @ 100 mls/hr IV 1000 / 1000 700 / 700 .CONT .Q10H WADE Rx#:[id number] INVanz Inj 1,000 MG In NS Inj 100 / 100 100 ML @ 100 mls/hr IV.SIG Q24H WADE Rx#:[id number] Oral 240 / 240 Other 1150 / 1150 Intake (Blood Product) Amt 0 / 0 Rbc As-3 Leukoreduced Unit 0 / 0 [id number] Bladder Irrigation Fluid - 0 / 0 Amount Retained 3-way Urethral 0 / 0 Output: Urine Amount (Catheter) 1200 / 1200 1050 / 1050 3-way Urethral 1200 / 1200 1050 / 1050 Other: Bladder Irrigation Fluid - 3,000 1,550 Amount Instilled 3-way Urethral 3,000 1,550 Bladder Irrigation Fluid - 4,200 2,600 Amount Drained 3-way Urethral 4,200 2,600 Date of Last Bowel Movement 10/02/17 10/03/17 10/03/17 # Bowel Movements 2 1 # Incontinent Bowel Movements 1 Narrative: GENERAL: Patient sitting up in bed. Nonverbal. Hematuria still present but much improved. SKIN: Warm and dry. HEAD: Normocephalic. EYES: No scleral icterus. No injection or drainage. NECK: Supple, trachea midline. No JVD. CARDIOVASCULAR: Regular rate and rhythm without murmurs, gallops, or rubs. RESPIRATORY: Breath sounds equal bilaterally. No accessory muscle use. GASTROINTESTINAL: Abdomen soft, non-tender, nondistended. MUSCULOSKELETAL: No cyanosis. Trace peripheral edema. BACK: Nontender without obvious deformity. No CVA tenderness. - Urinary Catheter Management Straight Cath placed during this visit: yes Reason for continuing: Gross Hematuria Insertion date: 09/29/17 Insertion time: 14:51 3-way Urethral Cath placed during this visit: yes Reason for continuing: Gross Hematuria Insertion date: 10/02/17 Insertion time: 00:00 Results - Labs CBC & Chem 7: 10/03/17 03:18 08/24/18 03:18 Laboratory Results - last 24 hr 10/02/17 10/02/17 10/03/17 18:10 23:35 03:18 WBC 18.9 H RBC 3.19 L Hgb 9.2 L Hct 28.5 L MCV 89.3 MCH 29.0 MCHC 32.4 RDW 16.4 Plt Count 102 L MPV 9.2 Sodium Potassium Chloride Carbon Dioxide Anion Gap BUN Creatinine Estimated GFR POC Glucose 138 H 116 H Random Glucose Calcium Prot Corrected Calcium Total Protein 10/03/17 10/03/17 10/03/17 03:18 06:21 11:29 WBC RBC Hgb Hct MCV MCH MCHC RDW Plt Count MPV Sodium 150 H Potassium 4.2 Chloride 121 H Carbon Dioxide 20.5 L Anion Gap 9 BUN 25 H Creatinine 1.00 Estimated GFR 52 L POC Glucose 98 101 Random Glucose 87 Calcium 7.3 L* Prot Corrected Calcium 7.7 L Total Protein 6.3 L Microbiology 09/29/17 16:30 Blood - Peripheral Aerobic Blood Culture - Final Escherichia coli ESBL positive 09/29/17 16:30 Blood - Peripheral Anaerobic Blood Culture - Final Escherichia coli ESBL positive 09/29/17 16:10 Blood - Peripheral Aerobic Blood Culture - Preliminary Escherichia coli ESBL positive Proteus species 09/29/17 16:10 Blood - Peripheral Anaerobic Blood Culture - Final Escherichia coli ESBL positive Assessment and Plan - Plan Assessment: 89yF with end-stage dementia and septic shock secondary to urinary tract infection/acute pyelonephritis. d/c mivf. recheck h&h after blood transfusion. f/u sensitivities for final abx regimen. can likely transfer out of ICU soon, now out of shock. Plan by systems: Neuro: end-stage severe dementia- nonverbal at baseline frequent neuro checks avoid long-acting sedatives CV: Septic Shock- resolved d/c mivf Renal: Acute pyelonephritis Acute hematuria Acute kidney injury urology consult continue CBI: now adding Amicar to CBI to help with ongoing hematuria. abx as below trend Cr on daily bmp frequent uop monitoring = 10/02. Continues with hematuria and anemia likely secondary to hematuria, staghorn calculi. Discussed with Dr. Summers. Will continue on continuous bladder irrigation as per urology. = 10/03. Hematuria improving. Continue CBI as per urology. FEN/GI: Acute protein calorie malnutrition- moderate Lactic Acidosis- resolved Acute anion-gap metabolic acidosis- resolved speech consult for swallow eval, advance diet after that daily [facility] ICU electrolyte protocol //Hypernatremia. = 10/02 sodium 153. Will start on half normal saline. = 10/03. Sodium 150. Improving slowly. Continue half normal saline. Heme/ID: Anemia secondary to acute blood loss- worsening Septic Shock- resolved Acute pyelonephritis ESBL E. Coli UTI 1gm ertapenem iv q24h. continue to follow up formal sensitivities. s/p 1 unit prbc. recheck H&H. transfuse to keep hgb > 7. daily cbc = 10/02. Hemoglobin down to 7. 3, likely secondary to hematuria. 1 unit of PRBCs ordered today. Follow-up tomorrow. Continue antibiotics for ESBL E. coli. = 10/03. Reports of melena. Hemoglobin stable. Consult GI order Hemoccult Endo: Hyperglycemia of critical illness SSI = 10/02. Glucose appears stable. Discontinue tomorrow if continues stable. = Insulin sliding scale appears to have been discontinued. Glucose stable. Prophylaxis: SCDs hold pharmacologic dvt prophylaxis given active hematuria, anemia Lines: = 10/02 central line has been discontinued. 09/29 3-way CBI Pelaez Discharge Planning: Continues on IV antibiotics for ESBL E. coli. We will need ID clearance We will need urology clearance. SNF at discharge.
[2017-10-03 14:19] LABS: INR 1.1 Ratio; Prothrombin Time 11.3 sec (9.8-11.6)
--- NOTE | 2017-10-03 14:58 | P.CONGI ---
History of Present Illness Consult date: 10/03/17 Consult reason: Anemia Chief complaint: Sepsis, Hemorrhagic Cystitis History of Present Illness: This is an 89-year-old female who entered the hospital on 09/29/2088 from a nursing facility with acute hematuria patient's initial diagnosis and treatment regimen has been acute pyelonephritis. Patient continues to have hematuria which is being monitored Via Pelaez catheter. Patient also has severe dementia and is nonverbal according to the record. Patient's son-in-law is in the room and is giving limited history other information is being gathered from the record. On 10/01/2017 patient's hemoglobin dropped to 7 and patient was transfused. Current hemoglobin is 9.2. Patient was also noted to have melena stools back in July/2017 she was hospitalized and seen per GI. Last EGD done on 08/08/2017 revealing small duodenal ulcer, esophagitis, and gastritis. gastroenterology was consulted this admission to assist in a workup with her anemia and previous melena stools for possible upper GI bleed. Patient's hematuria is also a contributing factor to her anemia. PT/INR 1.3 currently noted per the record. <Idalmis Waite - Last Filed: 10/03/17 15:00> Review of Systems All other systems reviewed negative except as stated in HPI <Idalmis Waite - Last Filed: 10/03/17 15:00> PMFSH - History History Provided By: Family Member - Medical / Surgical Hx Neg / Unobtainable Medical Problems Denied: Unable to Obtain - Tobacco History Second Hand Smoke Exposure: Yes Smoking Status: Never smoker - Alcohol History How Often Do You Have a Drink Containing Alcohol: Never - Substance Use History Substance History: No History of Abuse - Travel History Recent Travel in the [place] Within the Last 8 Weeks: No Recent Travel Out of the Country Within the Last 8 Weeks: No - Immunization History Tetanus Immunization: Unable to Assess <Idalmis Waite - Last Filed: 10/03/17 15:00> Medications and Allergies Active Medications: Active Medications Acetaminophen (Tylenol) 650 mg PO Q6H PRN PRN Reason: PAIN 1-10 AND/OR FEVER >101F Al Hydroxide/Mg Hydroxide (Milk Of Magnesia Liq) 30 ml PO Q12H PRN PRN Reason: Mild Constipation Albuterol (Duoneb Neb (Prn)) 1 ampul NEB Q2HR NEB PRN PRN Reason: WHEEZING Last Admin: 10/02/17 09:01 Dose: 1 ampul Belladonna Alkaloids/Opium (B & O Supp) 60 mg RECTAL Q6H PRN PRN Reason: ABDOMINAL PAIN Last Admin: 10/03/17 05:04 Dose: 60 mg Bisacodyl (Dulcolax Supp) 10 mg RECTAL DAILY PRN PRN Reason: SEVERE CONSITIPATION Chlorhexidine Gluconate (Chlorhexidine 2% Cloth) 3 pack TOPICAL DAILY@0400 [facility] Stop: 10/05/17 03:59 Last Admin: 10/03/17 05:03 Dose: 3 pack Chlorhexidine Gluconate (Chlorhexidine 2% Cloth) 3 pack TOPICAL DAILY@0400 PRN PRN Reason: Extra cloth needed Stop: 10/05/17 03:59 Last Admin: 10/01/17 03:16 Dose: 3 pack Sodium Chloride 3,000 ml/ (Aminocaproic Acid 3,000 mg) 0 ml IRR[facility]ATION [facility] Last Admin: 10/03/17 00:51 Dose: 3,000 irrig.soln Famotidine (Pepcid Pf Inj) 10 mg IV.PUSH Q12HR [facility] Last Admin: 10/03/17 08:11 Dose: 10 mg Ertapenem 1,000 mg/ Sodium (Chloride) 100 mls @ 100 mls/hr IV.SIG Q24H [facility] Last Infusion: 10/02/17 23:17 Dose: Infused Potassium Chloride/Sodium Chloride (Potassium Chlor 20 Meq/Nacl 0.45% Inj) 1, 000 mls @ 100 mls/hr IV.CONT .Q10H [facility] Last Admin: 10/03/17 12:16 Dose: 100 mls/hr Lactulose (Lactulose Liq) 30 ml PO DAILY PRN PRN Reason: SEVERE CONSITIPATION Ondansetron HCl (Zofran Inj) 4 mg IV.PUSH Q6H PRN PRN Reason: NAUSEA OR VOMITING Phenazopyridine HCl (Pyridium) 100 mg PO Q8HR [facility] Senna/Docusate Sodium (Trina-Colace) 1 tab PO BID [facility] Last Admin: 10/03/17 08:11 Dose: Not Given Sennosides (Senokot) 17.2 mg PO Q12H PRN PRN Reason: Moderate Constipation Sodium Chloride (Ns Flush) 2 ml IV.FLUSH PRN PRN PRN Reason: FLUSH AFTER USING IV ACCESS Sodium Chloride (Ns Flush) 2 ml IV.FLUSH BID [facility] Last Admin: 10/03/17 08:11 Dose: 2 ml <Idalmis Waite M - Last Filed: 10/03/17 15:00> Active Medications: Active Medications Acetaminophen (Tylenol) 650 mg PO Q6H PRN PRN Reason: PAIN 1-10 AND/OR FEVER >101F Al Hydroxide/Mg Hydroxide (Milk Of Magnbear Liq) 30 ml PO Q12H PRN PRN Reason: Mild Constipation Albuterol (Duoneb Neb (Prn)) 1 ampul NEB Q2HR NEB PRN PRN Reason: WHEEZING Last Admin: 10/04/17 08:02 Dose: 1 ampul Belladonna Alkaloids/Opium (B & O Supp) 60 mg RECTAL Q6H PRN PRN Reason: ABDOMINAL PAIN Last Admin: 10/04/17 11:14 Dose: 60 mg Bisacodyl (Dulcolax Supp) 10 mg RECTAL DAILY PRN PRN Reason: SEVERE CONSITIPATION Chlorhexidine Gluconate (Chlorhexidine 2% Cloth) 3 pack TOPICAL DAILY@0400 [facility] Stop: 10/05/17 03:59 Last Admin: 10/04/17 05:35 Dose: Not Given Chlorhexidine Gluconate (Chlorhexidine 2% Cloth) 3 pack TOPICAL DAILY@0400 PRN PRN Reason: Extra cloth needed Stop: 10/05/17 03:59 Last Admin: 10/01/17 03:16 Dose: 3 pack Chlorhexidine Gluconate (Chlorhexidine 2% Cloth) 3 pack TOPICAL PRESIDENT PRACTICING [facility]OLOG[facility] Stop: 10/07/17 01:04 Sodium Chloride 3,000 ml/ (Aminocaproic Acid 3,000 mg) 0 ml [facility] Last Admin: 10/03/17 00:51 Dose: 3,000 irrig.soln Famotidine (Pepcid Pf Inj) 10 mg IV.PUSH Q12HR [facility] Last Admin: 10/04/17 11:57 Dose: Not Given Ertapenem 1,000 mg/ Sodium (Chloride) 100 mls @ 100 mls/hr IV.SIG Q24H [facility] Last Infusion: 10/03/17 21:03 Dose: Infused Lactated Ringer's (Lr 1000 Ml Inj) 1,000 mls @ 30 mls/hr IV.SIG .Q24H [facility] Stop: 10/07/17 01:04 Last Admin: 10/04/17 01:25 Dose: Not Given Sodium Chloride (Ns Inj) 500 mls @ 30 mls/hr IV.SIG .Q10H [facility] Stop: 10/07/17 01:04 Sodium Chloride (1/2 Normal Saline Inj) 1,000 mls @ 35 mls/hr IV.CONT .Q24H [facility] Last Infusion: 10/04/17 11:58 Dose: 0 mls/hr Lactulose (Lactulose Liq) 30 ml PO DAILY PRN PRN Reason: SEVERE CONSITIPATION Ondansetron HCl (Zofran Inj) 4 mg IV.PUSH Q6H PRN PRN Reason: NAUSEA OR VOMITING Phenazopyridine HCl (Pyridium) 100 mg PO Q8HR [facility] Last Admin: 10/04/17 05:36 Dose: 100 mg Povidone Iodine (Betadine 5% Antisepsis Kit) 1 applicatio EACH NARE PRESIDENT PRACTICING UROLOGIST [facility] Stop: 10/07/17 01:04 Senna/Docusate Sodium (Trina-Colace) 1 tab PO BID [facility] Last Admin: 10/04/17 10:04 Dose: Not Given Sennosides (Senokot) 17.2 mg PO Q12H PRN PRN Reason: Moderate Constipation Sodium Chloride (Ns Flush) 2 ml IV.FLUSH PRN PRN PRN Reason: FLUSH AFTER USING IV ACCESS Sodium Chloride (Ns Flush) 2 ml IV.FLUSH BID [facility] Last Admin: 10/04/17 10:04 Dose: 2 ml <Cb Unger E - Last Filed: 10/04/17 12:21> Allergies Allergy/AdvReac Type Severity Reaction Status Date / Time No Known Allergies Allergy Unknown Uncoded 08/07/17 18:55 Exam Vital signs: Vital Signs 10/02/17 15:00 10/02/17 15:04 10/02/17 15:30 Temperature Pulse Rate 74 74 72 Respiratory Rate 18 22 17 Blood Pressure 171/71 H 147/73 H Pulse Oximetry 97 97 98 10/02/17 16:00 10/02/17 16:15 10/02/17 16:31 Temperature 99.0 F Pulse Rate 88 92 H 97 H Respiratory Rate 19 20 27 H Blood Pressure 159/107 H 168/79 H 177/121 H Pulse Oximetry 93 L 93 L 92 L 10/02/17 17:00 10/02/17 17:01 10/02/17 17:30 Temperature Pulse Rate 81 88 84 Respiratory Rate 16 17 16 Blood Pressure 141/75 H 150/70 H Pulse Oximetry 94 L 95 96 10/02/17 18:00 10/02/17 18:30 10/02/17 19:00 Temperature Pulse Rate 84 83 80 Respiratory Rate 18 15 15 Blood Pressure 133/68 142/61 H 133/66 Pulse Oximetry 96 97 97 10/02/17 19:31 10/02/17 20:00 10/02/17 20:30 Temperature 98.2 F Pulse Rate 76 76 78 Respiratory Rate 20 16 19 Blood Pressure 156/70 H 139/75 152/84 H Pulse Oximetry 98 99 98 10/02/17 21:00 10/02/17 21:31 10/02/17 22:00 Temperature Pulse Rate 80 79 82 Respiratory Rate 33 H 17 17 Blood Pressure 163/81 H 158/70 H Pulse Oximetry 97 96 96 10/02/17 22:01 10/02/17 22:31 10/02/17 23:00 Temperature Pulse Rate 82 79 77 Respiratory Rate 16 18 16 Blood Pressure 133/70 161/70 H Pulse Oximetry 96 96 95 10/02/17 23:01 10/02/17 23:30 10/03/17 00:00 Temperature 98 F Pulse Rate 82 79 80 Respiratory Rate 18 18 18 Blood Pressure 136/74 137/79 Pulse Oximetry 96 95 95 10/03/17 00:01 10/03/17 00:30 10/03/17 01:00 Temperature Pulse Rate 80 80 78 Respiratory Rate 23 15 17 Blood Pressure 155/70 H 157/73 H 158/70 H Pulse Oximetry 95 95 96 10/03/17 01:30 10/03/17 02:00 10/03/17 02:31 Temperature Pulse Rate 83 82 80 Respiratory Rate 23 17 17 Blood Pressure 156/70 H 166/75 H 155/68 H Pulse Oximetry 96 95 95 10/03/17 03:00 10/03/17 03:31 10/03/17 04:00 Temperature 98.1 F Pulse Rate 81 78 79 Respiratory Rate 18 16 17 Blood Pressure 161/70 H 154/74 H Pulse Oximetry 95 96 95 10/03/17 04:01 10/03/17 04:30 10/03/17 05:00 Temperature Pulse Rate 80 78 83 Respiratory Rate 16 16 25 H Blood Pressure 154/72 H 151/70 H Pulse Oximetry 95 95 95 10/03/17 05:01 10/03/17 05:31 10/03/17 06:00 Temperature Pulse Rate 82 89 81 Respiratory Rate 22 30 H 21 Blood Pressure 154/75 H 152/79 H 153/70 H Pulse Oximetry 95 92 L 92 L 10/03/17 06:30 10/03/17 07:00 10/03/17 07:31 Temperature Pulse Rate 79 77 79 Respiratory Rate 17 13 17 Blood Pressure 139/67 130/66 163/67 H Pulse Oximetry 93 L 93 L 93 L 10/03/17 08:00 10/03/17 08:09 10/03/17 08:31 Temperature 99.2 F Pulse Rate 76 79 72 Respiratory Rate 17 13 15 Blood Pressure 130/74 145/65 H Pulse Oximetry 94 L 94 L 95 10/03/17 09:00 10/03/17 10:00 10/03/17 11:00 Temperature Pulse Rate 73 74 76 Respiratory Rate 13 13 15 Blood Pressure 139/72 139/75 140/66 Pulse Oximetry 94 L 96 96 10/03/17 12:00 Temperature 98.4 F Pulse Rate 74 Respiratory Rate 16 Blood Pressure 155/68 H Pulse Oximetry 98 Intake & Output 10/02/17 10/03/17 10/03/17 18:59 06:59 18:59 Intake Total 2490 / 2490 1100 / 1100 2190 / 2190 Output Total 1200 / 1200 1050 / 1050 Balance 1290 / 1290 50 / 50 2190 / 2190 Weight 76 kg Intake: IV 1100 / 1100 1100 / 1100 1950 / 1950 Potassium Chlor 20 mEq/NACL 0. 1000 / 1000 1000 / 1000 45% Inj 1,000 ML @ 100 mls/hr IV.CONT .Q10H [facility] Rx#:[id number] NS Inj 1,000 ML @ 100 mls/hr IV 1000 / 1000 700 / 700 .CONT .Q10H [facility] Rx#:[id number] INVanz Inj 1,000 MG In NS Inj 100 / 100 100 ML @ 100 mls/hr IV.SIG Q24H [facility] Rx#:[id number] Oral 240 / 240 240 / 240 Other 1150 / 1150 Intake (Blood Product) Amt 0 / 0 Rbc As-3 Leukoreduced Unit 0 / 0 [id number] Bladder Irrigation Fluid - 0 / 0 Amount Retained 3-way Urethral 0 / 0 Output: Urine Amount (Catheter) 1200 / 1200 1050 / 1050 3-way Urethral 1200 / 1200 1050 / 1050 Other: Bladder Irrigation Fluid - 3,000 1,550 Amount Instilled 3-way Urethral 3,000 1,550 3,600 Bladder Irrigation Fluid - 4,200 2,600 Amount Drained 3-way Urethral 4,200 2,600 4,025 Date of Last Bowel Movement 10/02/17 10/03/17 10/03/17 # Bowel Movements 2 1 # Incontinent Bowel Movements 1 - Constitutional mild distress - Routine HEENT Exam Head: Present: normocephalic ENT: Present: mucous membranes dry - Routine Respiratory Exam Present: accessory muscle use, stridor (No obvious), wheezes (Expiratory) - Routine Cardiovascular Exam Present: S1, S2 - Routine Abdominal Exam Present: soft (Round, soft bowel sounds, abdomen taut, no obvious abdominal pain ) - Routine Skin Exam Present: pallor - Routine Neurological Exam Present: alert (Eyes open, nonverbal) <Idalmis Waite - Last Filed: 10/03/17 15:00> Vital signs: Vital Signs 10/03/17 12:30 10/03/17 13:00 10/03/17 16:00 Temperature 98.3 F Pulse Rate 80 79 79 Respiratory Rate 22 21 18 Blood Pressure 145/104 H 155/68 H 145/79 H Pulse Oximetry 96 97 98 10/03/17 18:48 10/03/17 20:00 10/04/17 00:00 Temperature 98.6 F 98.7 F Pulse Rate 90 80 Respiratory Rate 20 16 Blood Pressure 150/72 H 145/68 H Pulse Oximetry 98 93 L 96 10/04/17 04:00 10/04/17 08:00 10/04/17 08:02 Temperature 98.2 F 97.1 F L Pulse Rate 84 71 78 Respiratory Rate 20 18 16 Blood Pressure 147/64 H 158/79 H Pulse Oximetry 95 96 94 L Intake & Output 10/03/17 10/04/1718 18:59 06:59 18:59 Intake Total 2190 / 2190 800 / 800 Output Total 2400 / 2400 3525 / 3525 Balance -210 / -210 -2725 / -2725 Weight 73.5 kg Intake: IV 1950 / 1950 800 / 800 Potassium Chlor 20 mEq/NACL 0. 1000 / 1000 700 / 700 45% Inj 1,000 ML @ 35 mls/hr IV .CONT .Q24H [facility] Rx#:[id number] NS Inj 1,000 ML @ 100 mls/hr IV 700 / 700 .CONT .Q10H [facility] Rx#:[id number] INVanz Inj 1,000 MG In NS Inj 100 / 100 100 ML @ 100 mls/hr IV.SIG Q24H [facility] Rx#:[id number] Oral 240 / 240 Output: Urine Amount (Catheter) 2400 / 2400 3525 / 3525 3-way Urethral 2400 / 2400 3525 / 3525 Other: Bladder Irrigation Fluid - Amount Instilled 3-way Urethral 1,800 1,800 Bladder Irrigation Fluid - Amount Drained 3-way Urethral 4,025 Date of Last Bowel Movement 10/03/17 # Bowel Movements 2 <Cb Unger E - Last Filed: 10/04/17 12:21> Results - Labs CBC & Chem 7: 10/03/17 03:18 10/03/17 03:18 Labs: Laboratory Results - last 24 hr 10/02/17 10/02/17 10/03/17 18:10 23:35 03:18 WBC 18.9 H RBC 3.19 L Hgb 9.2 L Hct 28.5 L MCV 89.3 MCH 29.0 MCHC 32.4 RDW 16.4 Plt Count 102 L MPV 9.2 PT INR Sodium Potassium Chloride Carbon Dioxide Anion Gap BUN Creatinine Estimated GFR POC Glucose 138 H 116 H Random Glucose Calcium Prot Corrected Calcium Total Protein 10/03/17 10/03/17 10/03/17 03:18 06:21 11:29 WBC RBC Hgb Hct MCV MCH MCHC RDW Plt Count MPV PT INR Sodium 150 H Potassium 4.2 Chloride 121 H Carbon Dioxide 20.5 L Anion Gap 9 BUN 25 H Creatinine 1.00 Estimated GFR 52 L POC Glucose 98 101 Random Glucose 87 Calcium 7.3 L* Prot Corrected Calcium 7.7 L Total Protein 6.3 L 10/03/17 14:00 WBC RBC Hgb Hct MCV MCH MCHC RDW Plt Count MPV PT 11.3 INR 1.1 Sodium Potassium Chloride Carbon Dioxide Anion Gap BUN Creatinine Estimated GFR POC Glucose Random Glucose Calcium Prot Corrected Calcium Total Protein <Idalmis Waite - Last Filed: 10/03/17 15:00> - Labs CBC & Chem 7: 10/04/17 07:45 10/04/17 07:43 Labs: Laboratory Results - last 24 hr 10/03/17 10/03/17 10/03/17 03:18 14:00 17:40 WBC RBC Hgb Hct MCV MCH MCHC RDW Plt Count MPV Prelim Diff (Auto) Neut % (Auto) Lymph % (Auto) Runnels % (Auto) Eos % (Auto) Baso % (Auto) Neut # (Auto) Lymph # (Auto) [place] # (Auto) Eos # (Auto) Baso # (Auto) WBC Differential Seg Neuts % (Manual) Band Neuts % (Manual) Lymphocytes % (Manual) Monocytes % (Manual) Eosinophils % (Manual) Myelocytes % (Man) Promyelocytes % (Man) Abs Neuts (Manual) Differential Comment Platelet Estimate Platelet Morphology PT 11.3 INR 1.1 Sodium Potassium Chloride Carbon Dioxide Anion Gap BUN Creatinine Estimated GFR POC Glucose 116 H Random Glucose Calcium Phosphorus Magnesium B-Natriuretic Peptide 540 H Albumin 10/04/17 10/04/17 10/04/17 00:16 05:32 07:43 WBC RBC Hgb Hct MCV MCH MCHC RDW Plt Count MPV Prelim Diff (Auto) Neut % (Auto) Lymph % (Auto) Runnels % (Auto) Eos % (Auto) Baso % (Auto) Neut # (Auto) Lymph # (Auto) R[place] # (Auto) Eos # (Auto) Baso # (Auto) WBC Differential Seg Neuts % (Manual) Band Neuts % (Manual) Lymphocytes % (Manual) Monocytes % (Manual) Eosinophils % (Manual) Myelocytes % (Man) Promyelocytes % (Man) Abs Neuts (Manual) Differential Comment Platelet Estimate Platelet Morphology PT INR Sodium 146 H Potassium 3.8 Chloride 117 H Carbon Dioxide 21.8 Anion Gap 7 BUN 15 Creatinine 0.80 Estimated GFR 68 L POC Glucose 120 H 110 Random Glucose 96 Calcium 7.4 L* Phosphorus 2.1 L Magnesium 1.6 B-Natriuretic Peptide Albumin 2.1 L 10/04/17 07:45 WBC 11.4 H RBC 3.08 L Hgb 9.0 L Hct 26.6 L MCV 86.4 MCH 29.2 MCHC 33.8 RDW 15.9 Plt Count 94 L MPV 9.1 Prelim Diff (Auto) Slide review pending Neut % (Auto) 68.5 Lymph % (Auto) 16.7 Runnels % (Auto) 11.8 H Eos % (Auto) 2.7 Baso % (Auto) 0.3 Neut # (Auto) 7.8 H Lymph # (Auto) 1.9 Runnels # (Auto) 1.4 H Eos # (Auto) 0.3 Baso # (Auto) 0.0 WBC Differential Manual diff final Seg Neuts % (Manual) 73 H Band Neuts % (Manual) 1 Lymphocytes % (Manual) 14 Monocytes % (Manual) 6 Eosinophils % (Manual) 4 Myelocytes % (Man) 1 H Promyelocytes % (Man) 1 H Abs Neuts (Manual) 8.7 H Differential Comment . Platelet Estimate Low L Platelet Morphology Normal PT INR Sodium Potassium Chloride Carbon Dioxide Anion Gap BUN Creatinine Estimated GFR POC Glucose Random Glucose Calcium Phosphorus Magnesium B-Natriuretic Peptide Albumin - Imaging Impressions Chest X-Ray 10/03/17 00:00 CONCLUSION: Persistent fullness in the perihilar regions, right greater than left. Chest X-Ray 10/04/17 06:01 CONCLUSION: 1. Hypoinflation with stable elevation of the right hemidiaphragm. 2. Minimal atelectatic changes in the left lung base with some stable, mild airspace disease laterally in the right perihilar distribution. <Cb Unger E - Last Filed: 10/04/17 12:21> Assessment and Plan (1) Anemia Status: Acute Code(s): D64.9 - Anemia, unspecified - Plan 89-year-old female from a alf setting; severe dementia and nonverbal according to the record. On 822 patient had a hemoglobin of 7 and was transfused 1 unit. Current hemoglobin 9.2 no obvious bright red rectal bleeding noted. Patient entered the hospital on 09/29 with acute pyelonephritis is currently being actively treated. Continues to have hematuria and is being followed per neurology. Son-in-law at bedside and notes melena stools back in July 2017. EGD was done in 08/08/[address] Black with findings of gastritis, esophagitis, and small ulcer in the duodenum. Gastroenterology consulted for patient's anemia and to rule out any type of upper GI bleed. Plan Diet, n.p.o. at midnight Consent for EGD planned for in the a.m. Monitor labs with special attention hemoglobin and transfuse as needed Monitor for any melena stools PPI Bowel regimen Further recommendations to follow Patient was seen per myself and Dr. Unger, note was written on his behalf <Idalmis Waite - Last Filed: 10/03/17 15:00> (1) Anemia Status: Acute Code(s): D64.9 - Anemia, unspecified - Attending Attestation Patient seen and examined Agree with above Continue with current supportive care Monitor labs Patient presenting with anemia and melena with known history of peptic ulcer disease diagnosed a couple of months ago Patient is a poor historian information obtained from son-in-law and daughter Plan on EGD tomorrow <Cb Unger - Last Filed: 10/04/17 12:21>
--- NOTE | 2017-10-03 18:19 | XR ---
EXAM DATE: 10/03/2017 6:13 PM EDT AGE/SEX: 89 years / Female INDICATIONS: Congestion. CLINICAL DATA: This is the patient's initial encounter. Patient reports that signs and symptoms have been present for 1 day and indicates a pain score of Nonresponsive. MEDICAL/SURGICAL HISTORY: Hypertension. Dementia. None. [place] [facility] [place]. . FINDINGS: Stable elevation of the right hemidiaphragm. Both hemidiaphragms well delineated. Fullness in the per ihilar region bilaterally, right greater than left, similar to prior chest x-ray. No evidence of pneu mothorax. No consolidative infiltrates seen. CONCLUSION: Persistent fullness in the perihilar regions, right greater than left. Electronically signed by: Tony Green MD 10/03/2017 6:18 PM EDT
[2017-10-04] MEDS ORDERED: Chlorhexidine Gluconate 2% 1 Pack (2 Cloths) TOPICAL SCH (01:15)
[2017-10-04] MEDS ORDERED: Sodium Chlor 0.9% Inj 500 ML IV.SIG SCH (02:00)
[2017-10-04] MEDS: Chlorhexidine Gluconate 2% 1 Pack (2 Cloths) TOPICAL SCH (05:35)
--- NOTE | 2017-10-04 06:36 | XR ---
EXAM DATE: 10/04/2017 6:23 AM EDT AGE/SEX: 89 years / Female INDICATIONS: Congestion. Short of breath. CLINICAL DATA: This is the patient's subsequent encounter. Patient reports that signs and symptoms h ave been present for 3 days and indicates a pain score of Nonresponsive. MEDICAL/SURGICAL HISTORY: None. None. COMPARISON: [facility], CHEST 1V SINGLE AP, 10/03/2017. . FINDINGS: Lungs remain hypoinflated with stable elevation of the right hemidiaphragm. Minimal atelectatic jesus es above the left hemidiaphragm. Minimal, stable airspace disease laterally in the right perihilar di stribution. Accounting for low lung volumes, the heart size is normal. Both shoulders are "high ridin g" characteristic of chronic rotator cuff injuries. Degenerative spurring of the dorsal spine. Osseou s structures are otherwise intact. CONCLUSION: 1. Hypoinflation with stable elevation of the right hemidiaphragm. 2. Minimal atelectatic changes in the left lung base with some stable, mild airspace disease lateral ly in the right perihilar distribution. Electronically signed by: Dominick Ferrell MD 10/04/2017 6:34 AM EDT
[2017-10-04 08:08] LABS: Baso % (Auto) 0.3 % (0.0-2.0); Eos # (Auto) 0.3 th/mm3 (0.0-0.4); Eos % (Auto) 2.7 % (0.0-4.0); Hematocrit 26.6 % (35.0-46.0); Lymph # (Auto) 1.9 th/mm3 (1.0-4.8); Lymph % (Auto) 16.7 % (9.0-44.0); Mean Corpuscular HGB Conc 33.8 % (32.0-36.0); Mean Corpuscular Hemoglobin 29.2 pg (27.0-34.0); Mean Corpuscular Volume 86.4 fL (80.0-100.0); Mean Platelet Volume 9.1 fL (7.0-11.0); Mono # (Auto) 1.4 th/mm3 (0.0-0.9); Mono % (Auto) 11.8 % (0.0-8.0); Neut # (Auto) 7.8 th/mm3 (1.8-7.7); Neut % (Auto) 68.5 % (16.0-70.0); Platelet Count 94 th/mm3 (150-450); Red Blood Count 3.08 mil/mm3 (4.00-5.30); Red Cell Distribution Width 15.9 % (11.6-17.2); White Blood Count 11.4 th/mm3 (4.0-11.0)
[2017-10-04 08:31] LABS: Albumin 2.1 g/dL (3.4-5.0); Calcium 7.4 mg/dL (8.5-10.1); Carbon Dioxide 21.8 meq/L (21.0-32.0); Magnesium 1.6 mg/dL (1.5-2.5); Phosphorus 2.1 mg/dL (2.5-4.9); Potassium 3.8 meq/L (3.5-5.1)
[2017-10-04 09:30] LABS: Eosinophils 4 % (0-4); Lymphocytes 14 % (9-44); Monocytes 6 % (0-8); Myelocytes 1 % (0-0); Promyelocyte 1 % (0-0)
[2017-10-04 09:31] LABS: Platelet Morphology Normal (Normal)
[2017-10-04] MEDS: Famotidine PF Inj 20 MG/2 ML Vial IV.PUSH SCH ×3 (10:03→21:30)
[2017-10-04] MEDS: Senna/Docusate Sodium 8.6/50 MG Tablet PO SCH ×2 (10:04→21:31)
--- NOTE | 2017-10-04 10:53 | P.PNIM ---
Subjective Interval history: Patient sleeping, wakes up for exam. Nonverbal as before. Physical Exam Vital signs: Vital Signs 10/03/17 11:00 10/03/17 11:01 10/03/17 11:30 Temperature Pulse Rate 76 75 77 Respiratory Rate 15 14 26 H Blood Pressure 140/66 140/66 141/67 H Pulse Oximetry 96 96 96 10/03/17 12:00 10/03/17 12:02 10/03/17 12:30 Temperature 98.4 F Pulse Rate 74 78 80 Respiratory Rate 20 19 22 Blood Pressure 143/102 H 149/72 H 145/104 H Pulse Oximetry 97 97 96 10/03/17 13:00 10/03/17 16:00 10/03/17 18:48 Temperature 98.3 F Pulse Rate 79 79 Respiratory Rate 21 18 Blood Pressure 155/68 H 145/79 H Pulse Oximetry 97 98 98 10/03/17 20:00 10/04/17 00:00 10/04/17 04:00 Temperature 98.6 F 98.7 F 98.2 F Pulse Rate 90 80 84 Respiratory Rate 20 16 20 Blood Pressure 150/72 H 145/68 H 147/64 H Pulse Oximetry 93 L 96 95 10/04/17 08:00 10/04/17 08:02 Temperature 97.1 F L Pulse Rate 71 78 Respiratory Rate 18 16 Blood Pressure 158/79 H Pulse Oximetry 96 94 L Intake & Output 10/03/17 10/04/17 10/04/17 18:59 06:59 18:59 Intake Total 2190 / 2190 800 / 800 Output Total 2400 / 2400 3525 / 3525 Balance -210 / -210 -2725 / -2725 Weight 73.5 kg Intake: IV 1950 / 1950 800 / 800 Potassium Chlor 20 mEq/NACL 0. 1000 / 1000 700 / 700 45% Inj 1,000 ML @ 35 mls/hr IV .CONT .Q24H [facility] Rx#:[id number] NS Inj 1,000 ML @ 100 mls/hr IV 700 / 700 .CONT .Q10H [facility] Rx#:[id number] INVanz Inj 1,000 MG In NS Inj 100 / 100 100 ML @ 100 mls/hr IV.SIG Q24H [facility] Rx#:[id number] Oral 240 / 240 Output: Urine Amount (Catheter) 2400 / 2400 3525 / 3525 3-way Urethral 2400 / 2400 3525 / 3525 Other: Bladder Irrigation Fluid - Amount Instilled 3-way Urethral 1,800 1,800 Bladder Irrigation Fluid - Amount Drained 3-way Urethral 4,025 Date of Last Bowel Movement 10/03/17 # Bowel Movements 2 Narrative: GENERAL: Patient sitting up in bed. Nonverbal. Hematuria improved again from yesterday. SKIN: Warm and dry. HEAD: Normocephalic. EYES: No scleral icterus. No injection or drainage. NECK: Supple, trachea midline. No JVD. CARDIOVASCULAR: Regular rate and rhythm without murmurs, gallops, or rubs. RESPIRATORY: Breath sounds equal bilaterally. No accessory muscle use. No crackles. GASTROINTESTINAL: Abdomen soft, non-tender, nondistended. MUSCULOSKELETAL: No cyanosis. Trace peripheral edema. BACK: Nontender without obvious deformity. No CVA tenderness. - Urinary Catheter Management Straight Cath placed during this visit: yes Reason for continuing: Gross Hematuria Insertion date: 09/29/17 Insertion time: 14:51 3-way Urethral Cath placed during this visit: yes Reason for continuing: Gross Hematuria Insertion date: 10/02/17 Insertion time: 00:00 Results - Labs CBC & Chem 7: 10/04/17 07:45 10/04/17 07:43 Laboratory Results - last 24 hr 10/03/17 10/03/17 10/03/17 03:18 11:29 14:00 WBC RBC Hgb Hct MCV MCH MCHC RDW Plt Count MPV Prelim Diff (Auto) Neut % (Auto) Lymph % (Auto) [place] % (Auto) Eos % (Auto) Baso % (Auto) Neut # (Auto) Lymph # (Auto) [place] # (Auto) Eos # (Auto) Baso # (Auto) WBC Differential Seg Neuts % (Manual) Band Neuts % (Manual) Lymphocytes % (Manual) Monocytes % (Manual) Eosinophils % (Manual) Myelocytes % (Man) Promyelocytes % (Man) Abs Neuts (Manual) Differential Comment Platelet Estimate Platelet Morphology PT 11.3 INR 1.1 Sodium Potassium Chloride Carbon Dioxide Anion Gap BUN Creatinine Estimated GFR POC Glucose 101 Random Glucose Calcium Phosphorus Magnesium B-Natriuretic Peptide 540 H Albumin 10/03/17 10/04/17 10/04/17 17:40 00:16 05:32 WBC RBC Hgb Hct MCV MCH MCHC RDW Plt Count MPV Prelim Diff (Auto) Neut % (Auto) Lymph % (Auto) [place] % (Auto) Eos % (Auto) Baso % (Auto) Neut # (Auto) Lymph # (Auto) [place] # (Auto) Eos # (Auto) Baso # (Auto) WBC Differential Seg Neuts % (Manual) Band Neuts % (Manual) Lymphocytes % (Manual) Monocytes % (Manual) Eosinophils % (Manual) Myelocytes % (Man) Promyelocytes % (Man) Abs Neuts (Manual) Differential Comment Platelet Estimate Platelet Morphology PT INR Sodium Potassium Chloride Carbon Dioxide Anion Gap BUN Creatinine Estimated GFR POC Glucose 116 H 120 H 110 Random Glucose Calcium Phosphorus Magnesium B-Natriuretic Peptide Albumin 10/04/17 10/04/17 07:43 07:45 WBC 11.4 H RBC 3.08 L Hgb 9.0 L Hct 26.6 L MCV 86.4 MCH 29.2 MCHC 33.8 RDW 15.9 Plt Count 94 L MPV 9.1 Prelim Diff (Auto) Slide review pending Neut % (Auto) 68.5 Lymph % (Auto) 16.7 [place] % (Auto) 11.8 H Eos % (Auto) 2.7 Baso % (Auto) 0.3 Neut # (Auto) 7.8 H Lymph # (Auto) 1.9 [place] # (Auto) 1.4 H Eos # (Auto) 0.3 Baso # (Auto) 0.0 WBC Differential Manual diff final Seg Neuts % (Manual) 73 H Band Neuts % (Manual) 1 Lymphocytes % (Manual) 14 Monocytes % (Manual) 6 Eosinophils % (Manual) 4 Myelocytes % (Man) 1 H Promyelocytes % (Man) 1 H Abs Neuts (Manual) 8.7 H Differential Comment . Platelet Estimate Low L Platelet Morphology Normal PT INR Sodium 146 H Potassium 3.8 Chloride 117 H Carbon Dioxide 21.8 Anion Gap 7 BUN 15 Creatinine 0.80 Estimated GFR 68 L POC Glucose Random Glucose 96 Calcium 7.4 L* Phosphorus 2.1 L Magnesium 1.6 B-Natriuretic Peptide Albumin 2.1 L Microbiology 09/29/17 16:10 Blood - Peripheral Aerobic Blood Culture - Final Escherichia coli ESBL positive Proteus mirabilis 09/29/17 16:10 Blood - Peripheral Anaerobic Blood Culture - Final Escherichia coli ESBL positive 10/03/17 15:47 Stool Occult Blood - Final Hemoccult positive 09/29/17 16:30 Blood - Peripheral Aerobic Blood Culture - Final Escherichia coli ESBL positive 09/29/17 16:30 Blood - Peripheral Anaerobic Blood Culture - Final Escherichia coli ESBL positive - Imaging Impressions Chest X-Ray 10/03/17 00:00 CONCLUSION: Persistent fullness in the perihilar regions, right greater than left. Chest X-Ray 10/04/17 06:01 CONCLUSION: 1. Hypoinflation with stable elevation of the right hemidiaphragm. 2. Minimal atelectatic changes in the left lung base with some stable, mild airspace disease laterally in the right perihilar distribution. Assessment and Plan - Plan Assessment: 89yF with end-stage dementia and septic shock secondary to urinary tract infection/acute pyelonephritis. d/c mivf. recheck h&h after blood transfusion. f/u sensitivities for final abx regimen. can likely transfer out of ICU soon, now out of shock. Plan by systems: Neuro: end-stage severe dementia- nonverbal at baseline frequent neuro checks avoid long-acting sedatives CV: Septic Shock- resolved d/c mivf //Suspected CHF/fluid overload Chest x-ray 10/03 with perihilar fullness. Improved after single dose of Lasix. BNP 500s. Continue to monitor respiratory status. Check echocardiogram. Continue to monitor closely. Renal: Acute pyelonephritis Acute hematuria Acute kidney injury urology consult continue CBI: now adding Amicar to CBI to help with ongoing hematuria. abx as below trend Cr on daily bmp frequent uop monitoring = 10/02. Continues with hematuria and anemia likely secondary to hematuria, staghorn calculi. Discussed with Dr. Summers. Will continue on continuous bladder irrigation as per urology. = 10/03. Hematuria improving. Continue CBI as per urology. = 10/04. Still with some hematuria. Continue CBI. FEN/GI: Acute protein calorie malnutrition- moderate Lactic Acidosis- resolved Acute anion-gap metabolic acidosis- resolved speech consult for swallow eval, advance diet after that daily bmp ICU electrolyte protocol //Hypernatremia. = 10/02 sodium 153. Will start on half normal saline. = 10/03. Sodium 150. Improving slowly. Continue half normal saline. = 10/04. Sodium improving 146. Off IV fluids due to CHF. Heme/ID: Anemia secondary to acute blood loss- worsening Septic Shock- resolved Acute pyelonephritis ESBL E. Coli UTI 1gm ertapenem iv q24h. continue to follow up formal sensitivities. s/p 1 unit prbc. recheck H&H. transfuse to keep hgb > 7. daily cbc = 10/02. Hemoglobin down to 7. 3, likely secondary to hematuria. 1 unit of PRBCs ordered today. Follow-up tomorrow. Continue antibiotics for ESBL E. coli. = 10/03. Reports of melena. Hemoglobin stable. Consult GI order Hemoccult = 10/04. GI following. Appreciate assistance. Endo: Hyperglycemia of critical illness SSI = 10/02. Glucose appears stable. Discontinue tomorrow if continues stable. = Insulin sliding scale appears to have been discontinued. Glucose stable. Prophylaxis: SCDs hold pharmacologic dvt prophylaxis given active hematuria, anemia Lines: = 10/02 central line has been discontinued. 09/29 3-way CBI [place] Discharge Planning: Continues on IV antibiotics for ESBL E. coli. We will need ID clearance We will need urology clearance. Family wishes to speak with palliative care service. Consult placed. SNF at discharge.
[2017-10-04] MEDS ORDERED: Sodium Chloride 0.45 % Inj 1,000 ML IV.CONT SCH (11:00)
[2017-10-04] MEDS: Belladonna Alkaloid/Opium 60 MG Supp RECTAL PRN (11:14)
--- NOTE | 2017-10-04 17:12 | P.PNID ---
Subjective Remarks: pt is afebrile stable apparently had GI bleed and is ff by GI cont to have continious bladder irrigations Antibiotics: ertapenem Allergies/Adverse Reactions: Allergies No Known Allergies Allergy (Unknown, Uncoded 08/07/17 18:55) Objective Vital Signs 10/03/17 18:48 10/03/17 20:00 10/04/17 00:00 Temperature 98.6 F 98.7 F Pulse Rate 90 80 Respiratory Rate 20 16 Blood Pressure 150/72 H 145/68 H Pulse Oximetry 98 93 L 96 10/04/17 04:00 10/04/17 08:00 10/04/17 08:02 Temperature 98.2 F 97.1 F L Pulse Rate 84 71 78 Respiratory Rate 20 20 16 Blood Pressure 147/64 H 158/79 H Pulse Oximetry 95 96 94 L 10/04/17 12:00 10/04/17 16:00 Temperature 98.3 F 98.4 F Pulse Rate 79 76 Respiratory Rate 20 20 Blood Pressure 144/91 H 133/66 Pulse Oximetry 95 96 Intake & Output 10/03/17 10/04/17 10/04/17 18:59 06:59 18:59 Intake Total 2190 / 2190 800 / 800 Output Total 2400 / 2400 3525 / 3525 Balance -210 / -210 -2725 / -2725 Weight 73.5 kg Intake: IV 1950 / 1950 800 / 800 Potassium Chlor 20 mEq/NACL 0. 1000 / 1000 700 / 700 45% Inj 1,000 ML @ 35 mls/hr IV .CONT .Q24H [facility] Rx#:[id number] NS Inj 1,000 ML @ 100 mls/hr IV 700 / 700 .CONT .Q10H [facility] Rx#:[id number] INVanz Inj 1,000 MG In NS Inj 100 / 100 100 ML @ 100 mls/hr IV.SIG Q24H [facility] Rx#:[id number] Oral 240 / 240 Output: Urine Amount (Catheter) 2400 / 2400 3525 / 3525 3-way Urethral 2400 / 2400 3525 / 3525 Other: Bladder Irrigation Fluid - Amount Instilled 3-way Urethral 1,800 1,800 Bladder Irrigation Fluid - Amount Drained 3-way Urethral 4,025 Date of Last Bowel Movement 10/03/17 # Bowel Movements 2 09/29/17 16:10 Blood - Peripheral Aerobic Blood Culture - Final Escherichia coli ESBL positive Proteus mirabilis 09/29/17 16:10 Blood - Peripheral Anaerobic Blood Culture - Final Escherichia coli ESBL positive 10/03/17 15:47 Stool Occult Blood - Final Hemoccult positive 09/29/17 16:30 Blood - Peripheral Aerobic Blood Culture - Final Escherichia coli ESBL positive 09/29/17 16:30 Blood - Peripheral Anaerobic Blood Culture - Final Escherichia coli ESBL positive Lab - Hematology Results 10/03/17 10/04/17 03:18 07:45 WBC 18.9 H 11.4 H RBC 3.19 L 3.08 L Hgb 9.2 L 9.0 L Hct 28.5 L 26.6 L MCV 89.3 86.4 MCH 29.0 29.2 MCHC 32.4 33.8 RDW 16.4 15.9 Plt Count 102 L 94 L MPV 9.2 9.1 Prelim Diff (Auto) Slide review pending Neut % (Auto) 68.5 Lymph % (Auto) 16.7 [place] % (Auto) 11.8 H Eos % (Auto) 2.7 Baso % (Auto) 0.3 Neut # (Auto) 7.8 H Lymph # (Auto) 1.9 [place] # (Auto) 1.4 H Eos # (Auto) 0.3 Baso # (Auto) 0.0 WBC Differential Manual diff final Seg Neuts % (Manual) 73 H Band Neuts % (Manual) 1 Lymphocytes % (Manual) 14 Monocytes % (Manual) 6 Eosinophils % (Manual) 4 Myelocytes % (Man) 1 H Promyelocytes % (Man) 1 H Abs Neuts (Manual) 8.7 H Differential Comment . Platelet Estimate Low L Platelet Morphology Normal Lab - Chemistry Results 10/02/17 10/02/17 10/03/17 18:10 23:35 03:18 Sodium 150 H Potassium 4.2 Chloride 121 H Carbon Dioxide 20.5 L Anion Gap 9 BUN 25 H Creatinine 1.00 Estimated GFR 52 L POC Glucose 138 H 116 H Random Glucose 87 Calcium 7.3 L* Prot Corrected Calcium 7.7 L Phosphorus Magnesium B-Natriuretic Peptide Total Protein 6.3 L Albumin 10/03/17 10/03/17 10/03/17 03:18 06:21 11:29 Sodium Potassium Chloride Carbon Dioxide Anion Gap BUN Creatinine Estimated GFR POC Glucose 98 101 Random Glucose Calcium Prot Corrected Calcium Phosphorus Magnesium B-Natriuretic Peptide 540 H Total Protein Albumin 10/03/17 10/04/17 10/04/17 17:40 00:16 05:32 Sodium Potassium Chloride Carbon Dioxide Anion Gap BUN Creatinine Estimated GFR POC Glucose 116 H 120 H 110 Random Glucose Calcium Prot Corrected Calcium Phosphorus Magnesium B-Natriuretic Peptide Total Protein Albumin 10/04/17 07:43 Sodium 146 H Potassium 3.8 Chloride 117 H Carbon Dioxide 21.8 Anion Gap 7 BUN 15 Creatinine 0.80 Estimated GFR 68 L POC Glucose Random Glucose 96 Calcium 7.4 L* Prot Corrected Calcium Phosphorus 2.1 L Magnesium 1.6 B-Natriuretic Peptide Total Protein Albumin 2.1 L Imaging: ITS Impressions Abdomen/Pelvis CT 09/29/17 00:00 CONCLUSION: Staghorn calculus in the left kidney. Abdomen/Bladder Ultrasound 09/29/17 12:23 CONCLUSION: 1. Suspected 3 nonobstructing left renal stones measuring up to 16 mm. 2. No other significant abnormality is identified. There is a simple cyst in the lower pole the right kidney measuring 18 mm. Abdomen X-Ray 10/02/17 00:00 CONCLUSION: 1. Bowel gas pattern is within normal limits. There are no findings to indicate obstruction. 2. Staghorn-type calculus in the left kidney is again visualized. Chest X-Ray 10/04/17 06:01 CONCLUSION: 1. Hypoinflation with stable elevation of the right hemidiaphragm. 2. Minimal atelectatic changes in the left lung base with some stable, mild airspace disease laterally in the right perihilar distribution. Physical Exam: GENERAL: NAD SKIN: Warm and dry. CARDIOVASCULAR: Regular rate and rhythm. RESPIRATORY: No accessory muscle use. Clear to auscultation. Breath sounds equal bilaterally. GASTROINTESTINAL: Abdomen soft, non-tender, nondistended. Hepatic and splenic margins not palpable. MUSCULOSKELETAL: Extremities without clubbing, cyanosis, or edema. No obvious deformities. : pedraza in place with intense pink urine NEUROLOGICAL: Awake and alert. Non verbal. Unitelli=gible sounds. Not following commands PSYCHIATRIC: unable top assess Assessment and Plan - Plan ESBL + E.coli sepsis 2/2 UTI Staghorn kidney stone GIB Leukocuy=tosis - improved markedly cont Ertapenem x 2 weeks; longer course with inadequate clinical response midline can be placed OPAT filleou out dw with RN she can be discharge form ID standpoint after her other problems ( hematuria, GIB will be stable)
--- NOTE | 2017-10-04 17:13 | P.DCO ---
Post Hospital Infusion Therapy Location of Infusion Therapy: [facility] Infusion Therapy Order Patient Weight: 73.5 kg - Diagnosis (1) UTI (urinary tract infection) Code(s): N39.0 - Urinary tract infection, site not specified - Administer Medication Ertapenem Dose: 1 gram IV Directions: q 24 hours Start Treatment: 10/06/17 Stop Treatment: 10/13/17 - Additional Information Venous Access: Other (midline) Additional Instructions: [x] Peripheral flush and dressing changes per protocol [x] Implanted port and central manager line: * Implanted port: 10 ml Normal Saline followed by 5 ml Heparin 100 units/ml Heparin flush after each use and monthly to maintain. [] May leave port accessed during therapy. [] May leave peripheral site accessed for duration of therapy. [x] If patient has SOB or respiratory distress, check oxygen saturation. If less than 90% or clinical signs of respiratory distress, administer oxygen at 2 L/min. via nasal cannula and notify physician. [x] Anaphylaxis/Reaction orders: * Stop infusion. * Keep IV line open with saline flush. * Notify physician. * Monitor vital signs every 15 minutes until symptoms resolve. * Check Oxygen saturation; Oxygen at 2 L/min. via nasal cannula if less than 90% or clinical signs of respiratory distress. * Administer diphenhydramine (Benadryl) 25 mg IV STAT, (unless patient has received as pre-med). May repeat once, if necessary. * Solu-Cortef 250 mg IVP over 30-60 seconds, use 100 mg vials for each dissolution. * Epinephrine (1mg/1 ml) 0.3 mg subcutaneously or IVP now with any signs of respiratory distress. * Check with physician for new additional pre-med orders if patient is re- challenged or re-treated. [x] May remove PICC line when treatment complete, after confirming with Physician. [x] If the patient is admitted to the hospital, the ED, or transferred via [facility] , complete transfer form including medication reconciliation order sheet. Weekly Labs: CBC w/diff, CMP Allergies No Known Allergies Allergy (Unknown, Uncoded 08/07/17 18:55)
[2017-10-04] MEDS: Acetaminophen 325 MG Tablet PO PRN (18:34)
--- NOTE | 2017-10-04 21:05 | P.PNGI ---
Subjective Interval history: Laying comfortably in bed patient nonverbal Physical Exam Vital signs: Vital Signs 10/04/17 00:00 10/04/17 04:00 10/04/17 08:00 Temperature 98.7 F 98.2 F 97.1 F L Pulse Rate 80 84 71 Respiratory Rate 16 20 20 Blood Pressure 145/68 H 147/64 H 158/79 H Pulse Oximetry 96 95 96 10/04/17 08:02 10/04/17 12:00 10/04/17 16:00 Temperature 98.3 F 98.4 F Pulse Rate 78 79 76 Respiratory Rate 16 20 20 Blood Pressure 144/91 H 133/66 Pulse Oximetry 94 L 95 96 Intake & Output 10/04/17 10/04/17 10/05/17 06:59 18:59 06:59 Intake Total 800 / 800 0 / 0 Output Total 3525 / 3525 2150 / 2150 Balance -2725 / -2725 -2150 / -2150 Weight 73.5 kg 73.5 kg Intake: IV 800 / 800 Potassium Chlor 20 mEq/NACL 0. 700 / 700 45% Inj 1,000 ML @ 35 mls/hr IV .CONT .Q24H [facility] Rx#:[id number] INVanz Inj 1,000 MG In NS Inj 100 / 100 100 ML @ 100 mls/hr IV.SIG Q24H [facility] Rx#:[id number] Oral 0 / 0 Output: Urine Amount (Catheter) 3525 / 3525 2150 / 2150 3-way Urethral 3525 / 3525 2150 / 2150 Other: Bladder Irrigation Fluid - Amount Instilled 3-way Urethral 1,800 - Constitutional no acute distress - Routine HEENT Exam Head: Present: normocephalic Eye: Present: EOMI ENT: Present: mucous membranes moist - Routine Neck Exam Present: supple - Routine Respiratory Exam Present: CTA bilaterally - Routine Cardiovascular Exam Present: RRR - Routine Abdominal Exam Present: soft, normoactive bowel sounds. Absent: tenderness - Urinary Catheter Management Straight Cath placed during this visit: yes Reason for continuing: Gross Hematuria Insertion date: 09/29/17 Insertion time: 14:51 3-way Urethral Cath placed during this visit: yes Reason for continuing: Gross Hematuria Insertion date: 10/02/17 Insertion time: 00:00 Results - Labs CBC & Chem 7: 10/04/17 07:45 10/04/17 07:43 Laboratory Results - last 24 hr 10/04/17 10/04/17 10/04/17 00:16 05:32 07:43 WBC RBC Hgb Hct MCV MCH MCHC RDW Plt Count MPV Prelim Diff (Auto) Neut % (Auto) Lymph % (Auto) [place] % (Auto) Eos % (Auto) Baso % (Auto) Neut # (Auto) Lymph # (Auto) [place] # (Auto) Eos # (Auto) Baso # (Auto) WBC Differential Seg Neuts % (Manual) Band Neuts % (Manual) Lymphocytes % (Manual) Monocytes % (Manual) Eosinophils % (Manual) Myelocytes % (Man) Promyelocytes % (Man) Abs Neuts (Manual) Differential Comment Platelet Estimate Platelet Morphology Sodium 146 H Potassium 3.8 Chloride 117 H Carbon Dioxide 21.8 Anion Gap 7 BUN 15 Creatinine 0.80 Estimated GFR 68 L POC Glucose 120 H 110 Random Glucose 96 Calcium 7.4 L* Phosphorus 2.1 L Magnesium 1.6 Albumin 2.1 L 10/04/17 07:45 WBC 11.4 H RBC 3.08 L Hgb 9.0 L Hct 26.6 L MCV 86.4 MCH 29.2 MCHC 33.8 RDW 15.9 Plt Count 94 L MPV 9.1 Prelim Diff (Auto) Slide review pending Neut % (Auto) 68.5 Lymph % (Auto) 16.7 [place] % (Auto) 11.8 H Eos % (Auto) 2.7 Baso % (Auto) 0.3 Neut # (Auto) 7.8 H Lymph # (Auto) 1.9 [place] # (Auto) 1.4 H Eos # (Auto) 0.3 Baso # (Auto) 0.0 WBC Differential Manual diff final Seg Neuts % (Manual) 73 H Band Neuts % (Manual) 1 Lymphocytes % (Manual) 14 Monocytes % (Manual) 6 Eosinophils % (Manual) 4 Myelocytes % (Man) 1 H Promyelocytes % (Man) 1 H Abs Neuts (Manual) 8.7 H Differential Comment . Platelet Estimate Low L Platelet Morphology Normal Sodium Potassium Chloride Carbon Dioxide Anion Gap BUN Creatinine Estimated GFR POC Glucose Random Glucose Calcium Phosphorus Magnesium Albumin Microbiology 09/29/17 16:10 Blood - Peripheral Aerobic Blood Culture - Final Escherichia coli ESBL positive Proteus mirabilis 09/29/17 16:10 Blood - Peripheral Anaerobic Blood Culture - Final Escherichia coli ESBL positive 10/03/17 15:47 Stool Occult Blood - Final Hemoccult positive - Imaging Impressions Chest X-Ray 10/04/17 06:01 CONCLUSION: 1. Hypoinflation with stable elevation of the right hemidiaphragm. 2. Minimal atelectatic changes in the left lung base with some stable, mild airspace disease laterally in the right perihilar distribution. Assessment and Plan (1) Anemia Status: Acute Code(s): D64.9 - Anemia, unspecified - Plan 89-year-old female from a longterm setting; severe dementia and nonverbal according to the record. On 822 patient had a hemoglobin of 7 and was transfused 1 unit. Current hemoglobin 9.2 no obvious bright red rectal bleeding noted. Patient entered the hospital on 09/29 with acute pyelonephritis is currently being actively treated. Continues to have hematuria and is being followed per neurology. Son-in-law at bedside and notes melena stools back in July 2017. EGD was done in 08/08/[address] Black with findings of gastritis, esophagitis, and small ulcer in the duodenum. Gastroenterology consulted for patient's anemia and to rule out any type of upper GI bleed. Plan Diet, n.p.o. at midnight Consent for EGD planned for in the a.m. unfortunately we were not able to do it today due to the congestion in the OR Monitor labs with special attention hemoglobin and transfuse as needed Monitor for any melena stools PPI Bowel regimen Further recommendations to follow
[2017-10-05] MEDS: Belladonna Alkaloid/Opium 60 MG Supp RECTAL PRN (06:19)
[2017-10-05 07:55] LABS: Hematocrit 25.3 % (35.0-46.0); Hemoglobin 8.6 gm/dL (11.6-15.3); Mean Corpuscular Hemoglobin 29.6 pg (27.0-34.0); Mean Platelet Volume 9.1 fL (7.0-11.0); Platelet Count 80 th/mm3 (150-450); Red Blood Count 2.91 mil/mm3 (4.00-5.30); Red Cell Distribution Width 15.6 % (11.6-17.2); White Blood Count 9.7 th/mm3 (4.0-11.0)
[2017-10-05 08:16] LABS: Calcium 7.2 mg/dL (8.5-10.1); Carbon Dioxide 25.7 meq/L (21.0-32.0); Potassium 3.9 meq/L (3.5-5.1)
[2017-10-05] MEDS: Famotidine PF Inj 20 MG/2 ML Vial IV.PUSH SCH ×2 (08:39→20:24)
[2017-10-05 08:52] LABS: Total Protein 5.7 g/dL (6.4-8.2)
[2017-10-05] MEDS ORDERED: Lidocaine PF 1% Inj 5 ML Syringe INFILTRATN ONE (10:43)
--- NOTE | 2017-10-05 11:00 | P.PNIM ---
Subjective Interval history: Patient nonverbal as before. Family not at bedside. Physical Exam Vital signs: Vital Signs 10/04/17 12:00 10/04/17 16:00 10/04/17 19:58 Temperature 98.3 F 98.4 F Pulse Rate 79 76 98 H Respiratory Rate 20 20 Blood Pressure 144/91 H 133/66 Pulse Oximetry 95 96 10/04/17 20:00 10/04/17 23:58 10/05/17 00:00 Temperature 98.3 F 98.3 F Pulse Rate 90 83 86 Respiratory Rate 18 20 Blood Pressure 120/68 134/61 Pulse Oximetry 95 95 10/05/17 04:00 10/05/17 08:00 Temperature 98.3 F 97.9 F Pulse Rate 88 83 Respiratory Rate 20 20 Blood Pressure 109/81 135/65 Pulse Oximetry 95 94 L Intake & Output 10/04/17 10/05/17 10/05/17 18:59 06:59 18:59 Intake Total 0 / 0 100 / 100 Output Total 2150 / 2150 1000 / 1000 Balance -2150 / -2150 -900 / -900 Weight 73.5 kg 71.2 kg Intake: IV 100 / 100 INVanz Inj 1,000 MG In NS Inj 100 / 100 100 ML @ 100 mls/hr IV.SIG Q24H [facility] Rx#:[id number] Oral 0 / 0 Output: Urine Amount (Catheter) 2150 / 2150 1000 / 1000 3-way Urethral 2150 / 2150 1000 / 1000 Other: Bladder Irrigation Fluid - Amount Instilled 3-way Urethral 500 Bladder Irrigation Fluid - Amount Drained 3-way Urethral 500 # Bowel Movements 1 Narrative: GENERAL: Patient sitting up in bed. Nonverbal as before. Hematuria appears resolved. SKIN: Warm and dry. HEAD: Normocephalic. EYES: No scleral icterus. No injection or drainage. NECK: Supple, trachea midline. No JVD. CARDIOVASCULAR: Regular rate and rhythm without murmurs, gallops, or rubs. RESPIRATORY: Breath sounds equal bilaterally. No accessory muscle use. No crackles. GASTROINTESTINAL: Abdomen soft, non-tender, nondistended. MUSCULOSKELETAL: No cyanosis. Trace peripheral edema. BACK: Nontender without obvious deformity. No CVA tenderness. - Urinary Catheter Management Straight Cath placed during this visit: yes Reason for continuing: Gross Hematuria Insertion date: 09/29/17 Insertion time: 14:51 3-way Urethral Cath placed during this visit: yes Reason for continuing: Gross Hematuria Insertion date: 10/02/17 Insertion time: 00:00 Results - Labs CBC & Chem 7: 10/05/17 07:30 10/05/17 07:30 Laboratory Results - last 24 hr 10/05/17 10/05/17 10/05/17 00:26 06:09 07:30 WBC 9.7 RBC 2.91 L Hgb 8.6 L Hct 25.3 L MCV 87.0 MCH 29.6 MCHC 34.0 RDW 15.6 Plt Count 80 L MPV 9.1 Sodium Potassium Chloride Carbon Dioxide Anion Gap BUN Creatinine Estimated GFR POC Glucose 86 106 Random Glucose Calcium Prot Corrected Calcium Total Protein 10/05/17 07:30 WBC RBC Hgb Hct MCV MCH MCHC RDW Plt Count MPV Sodium 147 H Potassium 3.9 Chloride 114 H Carbon Dioxide 25.7 Anion Gap 7 BUN 10 Creatinine 0.84 Estimated GFR 64 L POC Glucose Random Glucose 96 Calcium 7.2 L* Prot Corrected Calcium 7.9 L Total Protein 5.7 L D Microbiology 09/29/17 16:10 Blood - Peripheral Aerobic Blood Culture - Final Escherichia coli ESBL positive Proteus mirabilis 09/29/17 16:10 Blood - Peripheral Anaerobic Blood Culture - Final Escherichia coli ESBL positive Assessment and Plan - Plan Assessment: 89yF with end-stage dementia and septic shock secondary to urinary tract infection/acute pyelonephritis. d/c mivf. recheck h&h after blood transfusion. f/u sensitivities for final abx regimen. can likely transfer out of ICU soon, now out of shock. Plan by systems: Neuro: end-stage severe dementia- nonverbal at baseline frequent neuro checks avoid long-acting sedatives CV: Septic Shock- resolved d/c mivf //Suspected CHF/fluid overload Chest x-ray 10/03 with perihilar fullness. Improved after single dose of Lasix. BNP 500s. Continue to monitor respiratory status. Check echocardiogram. Continue to monitor closely. = 10/05. Echocardiogram pending. Continue to monitor fluid status closely. Renal: Acute pyelonephritis Acute hematuria Acute kidney injury urology consult continue CBI: now adding Amicar to CBI to help with ongoing hematuria. abx as below trend Cr on daily bmp frequent uop monitoring = 10/02. Continues with hematuria and anemia likely secondary to hematuria, staghorn calculi. Discussed with Dr. Summers. Will continue on continuous bladder irrigation as per urology. = 10/03. Hematuria improving. Continue CBI as per urology. = 10/04. Still with some hematuria. Continue CBI. FEN/GI: Acute protein calorie malnutrition- moderate Lactic Acidosis- resolved Acute anion-gap metabolic acidosis- resolved speech consult for swallow eval, advance diet after that daily [facility] ICU electrolyte protocol //Hypernatremia. = 10/02 sodium 153. Will start on half normal saline. = 10/03. Sodium 150. Improving slowly. Continue half normal saline. = 10/04. Sodium improving 146. Off IV fluids due to CHF. =. Sodium 147. Will place on one quarter normal saline at low rate due to suspected CHF. Heme/ID: Anemia secondary to acute blood loss- worsening Septic Shock- resolved Acute pyelonephritis ESBL E. Coli UTI 1gm ertapenem iv q24h. continue to follow up formal sensitivities. s/p 1 unit prbc. recheck H&H. transfuse to keep hgb > 7. daily cbc = 10/02. Hemoglobin down to 7. 3, likely secondary to hematuria. 1 unit of PRBCs ordered today. Follow-up tomorrow. Continue antibiotics for ESBL E. coli. = 10/03. Reports of melena. Hemoglobin stable. Consult GI order Hemoccult = 10/04. GI following. Appreciate assistance. = 10/05. Leukocytosis improving. GI following for anemia likely secondary to GI losses. Hematuria has resolved but still hemoglobin is slowly trending down. Await endoscopy. Urology following. Hopefully can stop bladder irrigation. Repeat blood cultures today. Continue on IV antibiotics as per ID for gram-negative bacteremia. A cardiogram pending. Endo: Hyperglycemia of critical illness SSI = 10/02. Glucose appears stable. Discontinue tomorrow if continues stable. = Insulin sliding scale appears to have been discontinued. Glucose stable. Prophylaxis: SCDs hold pharmacologic dvt prophylaxis given active hematuria, anemia Lines: = 10/02 central line has been discontinued. 09/29 3-way CBI Pelaez Discharge Planning: Continues on IV antibiotics for ESBL E. coli. We will need ID clearance We will need urology clearance. Family wishes to speak with palliative care service. Consult placed. SNF at discharge.
--- NOTE | 2017-10-05 11:17 | P.PCN ---
Date of procedure: 10/05/17 Pre-op diagnosis: Anemia, melena, history of peptic ulcer disease Procedure: PROCEDURE PERFORMED EGD INDICATION FOR PROCEDURE Same as above PROCEDURE: The procedure, risks and benefits were discussed with Patient/POA and informed consent was obtained. Anesthesia sedated Patient with Diprivan. Patient was placed in the left lateral decubitus position. EGD: The Pentax videoscope was introduced through the oropharynx and advanced to the second portion of the duodenum under direct visualization. Retroflexion was performed in the stomach. FINDINGS: The esophagus this appeared to be unremarkable and within normal limits there was a mild Schatzki ring at the GE junction The stomach this to appear to be unremarkable and within normal limits except for a small hiatal hernia retroflexion was unremarkable otherwise The duodenum there was still some patchy erythema noted in the duodenal sweep probably the area of peptic ulcer that was previously noted this has healed the rest of the duodenum was unremarkable ESTIMATED BLOOD LOSS: None SPECIMENS REMOVED: None COMPLICATIONS: None IMPRESSION: Schatzki ring Hiatal hernia Duodenitis PLAN: Continue with current supportive care Monitor labs and transfuse as needed Continue with PPI Okay to advance diet Anesthesia: MAC Surgeon: Cb Unger Condition: stable Disposition: floor
[2017-10-05] MEDS: Sodium Chloride 23.4% Inj 38.5 MEQ in Water for Inj, Sterile 1,000 ML IV.CONT SCH (12:20)
[2017-10-05] MEDS: Senna/Docusate Sodium 8.6/50 MG Tablet PO SCH ×2 (12:29→20:24)
[2017-10-05] MEDS: Acetaminophen 325 MG Tablet PO PRN (12:29)
[2017-10-06 03:34] LABS: Baso % (Auto) 0.2 % (0.0-2.0); Eos # (Auto) 0.3 th/mm3 (0.0-0.4); Hematocrit 26.3 % (35.0-46.0); Hemoglobin 8.7 gm/dL (11.6-15.3); Lymph # (Auto) 1.6 th/mm3 (1.0-4.8); Lymph % (Auto) 14.6 % (9.0-44.0); Mean Corpuscular Hemoglobin 28.7 pg (27.0-34.0); Mean Platelet Volume 8.5 fL (7.0-11.0); Mono # (Auto) 1.2 th/mm3 (0.0-0.9); Mono % (Auto) 11.3 % (0.0-8.0); Neut # (Auto) 7.8 th/mm3 (1.8-7.7); Neut % (Auto) 70.9 % (16.0-70.0); Platelet Count 155 th/mm3 (150-450); Red Blood Count 3.02 mil/mm3 (4.00-5.30); Red Cell Distribution Width 15.6 % (11.6-17.2)
[2017-10-06 04:19] LABS: Albumin 2.1 g/dL (3.4-5.0); Calcium 7.3 mg/dL (8.5-10.1); Carbon Dioxide 27.3 meq/L (21.0-32.0); Magnesium 1.8 mg/dL (1.5-2.5); Phosphorus 2.6 mg/dL (2.5-4.9); Potassium 3.8 meq/L (3.5-5.1)
[2017-10-06] MEDS: Acetaminophen 325 MG Tablet PO PRN (05:09)
[2017-10-06] MEDS: Famotidine PF Inj 20 MG/2 ML Vial IV.PUSH SCH ×2 (08:16→21:29)
[2017-10-06] MEDS: Senna/Docusate Sodium 8.6/50 MG Tablet PO SCH ×3 (08:16→21:30)
--- NOTE | 2017-10-06 09:36 | P.PNURO ---
Subjective Patient symptoms today: Pt seen and examined. Urine clear. Objective Vital Signs: Vital Signs 10/05/17 12:00 10/05/17 13:45 10/05/17 16:00 Temperature 98.2 F 98.6 F Pulse Rate 84 89 Respiratory Rate 22 24 Blood Pressure 143/75 H 132/74 Pulse Oximetry 94 L 94 L 94 L 10/05/17 16:39 10/05/17 20:00 10/05/17 20:09 Temperature 98.8 F Pulse Rate 89 104 H 87 Respiratory Rate 19 20 Blood Pressure 116/56 L Pulse Oximetry 94 L 10/06/17 00:00 10/06/17 00:02 10/06/17 04:00 Temperature 99.4 F 100.2 F H Pulse Rate 94 H 86 90 Respiratory Rate 18 18 Blood Pressure 155/73 H 147/80 H Pulse Oximetry 93 L 95 Intake & Output 10/05/17 10/06/17 10/06/17 18:59 06:59 18:59 Intake Total 560 / 560 150 / 150 Output Total 1300 / 1300 850 / 850 Balance 560 / 560 -1150 / -1150 -850 / -850 Weight 70 kg Intake: IV 100 / 100 INVanz Inj 1,000 MG In NS Inj 100 / 100 100 ML @ 100 mls/hr IV.SIG Q24H [facility] Rx#:[id number] Oral 360 / 360 Anesthesia Amount 200 / 200 Bladder Irrigation Fluid - 50 / 50 Amount Retained 3-way Urethral 50 / 50 Output: Urine 1300 / 1300 Urine Amount (Catheter) 850 / 850 3-way Urethral 850 / 850 Other: Bladder Irrigation Fluid - Amount Instilled 3-way Urethral 750 Bladder Irrigation Fluid - Amount Drained 3-way Urethral 800 # Voids 2,450 # Bowel Movements 1 1 Result Diagrams: 10/06/17 03:22 10/06/17 03:22 Medications and IVs: Active Medications Generic Name Dose Route Start Last Admin Trade Name Freq PRN Reason Stop Dose Admin Acetaminophen 650 mg 09/29/17 19:30 10/06/17 05:09 Tylenol PO 650 mg Q6H PRN Administration PAIN 1-10 AND/OR FEVER >101F Al Hydroxide/Mg Hydroxide 30 ml 09/29/17 19:30 Milk Of Magnesia Liq PO Q12H PRN Mild Constipation Albuterol 1 ampul 09/29/17 19:30 10/05/17 16:37 Duoneb Neb (Prn) NEB 1 ampul Q2HR NEB PRN Administration WHEEZING Belladonna Alkaloids/Opium 60 mg 10/01/17 16:32 10/05/17 06:19 B & O Supp RECTAL 60 mg Q6H PRN Administration ABDOMINAL PAIN Bisacodyl 10 mg 09/29/17 19:30 Dulcolax Supp RECTAL DAILY PRN SEVERE CONSITIPATION Chlorhexidine Gluconate 3 pack 10/04/17 01:15 Chlorhexidine 2% Cloth TOPICAL 10/07/17 01:04 EXERCISE EQUIPMENT SPECIALIST [facility] Sodium Chloride 3,000 ml/ 0 ml 10/01/17 16:30 10/03/17 00:51 Aminocaproic Acid 3,000 mg IRRIGATION 3,000 irrig.soln CONT [facility] Administration Famotidine 10 mg 09/29/17 21:00 10/06/17 08:16 Pepcid Pf Inj IV.PUSH 10 mg Q12HR [facility] Administration Ertapenem 1,000 mg/ Sodium 100 mls @ 100 mls/hr 09/30/17 21:00 10/06/17 01:18 Chloride IV.SIG Infused Q24H [facility] Infusion Lactated Ringer's 1,000 mls @ 30 mls/hr 10/04/17 01:15 10/06/17 02:03 Lr 1000 Ml Inj IV.SIG 10/07/17 01:04 Not Given .Q24H [facility] Sodium Chloride 500 mls @ 30 mls/hr 10/04/17 02:00 Ns Inj IV.SIG 10/07/17 01:04 .Q10H [facility] Sodium Chloride 38.5 meq/ 1,009.625 mls @ 42 mls/hr 10/05/17 12:00 10/05/17 12:20 Sterile Water IV.CONT 42 mls/hr .Q24H [facility] Administration Lactulose 30 ml 09/29/17 19:30 Lactulose Liq PO DAILY PRN SEVERE CONSITIPATION Ondansetron HCl 4 mg 09/29/17 19:30 Zofran Inj IV.PUSH Q6H PRN NAUSEA OR VOMITING Phenazopyridine HCl 100 mg 10/03/17 14:00 10/06/17 05:09 Pyridium PO 100 mg Q8HR [facility] Administration Povidone Iodine 1 applicatio 10/04/17 01:15 Betadine 5% Antisepsis Kit EACH NARE 10/07/17 01:04 EXERCISE EQUIPMENT SPECIALIST [facility] Senna/Docusate Sodium 1 tab 09/29/17 21:00 10/06/17 08:20 Trina-Colace PO Not Given BID [facility] Sennosides 17.2 mg 09/29/17 19:30 Senokot PO Q12H PRN Moderate Constipation Sodium Chloride 2 ml 09/29/17 19:30 Ns Flush IV.FLUSH PRN PRN FLUSH AFTER USING IV ACCESS Sodium Chloride 2 ml 09/29/17 21:00 10/06/17 08:16 Ns Flush IV.FLUSH 2 ml BID [facility] Administration Objective Remarks: ABd:soft,nt,nd Bladder distended. 822 Abd:soft,nt,nd Pedraza: pink on CBI 10/02 Abd:soft,nt,nd Pedraza: urine now pink on CBI 10/03 Abd:soft,nt,nd Pedraza: urine now pink on CBI 10/06 Abd:soft,nt,nd Urine: clear Assessment and Plan - Plan 89 y.o female with gross hematuria. Pedraza irrigated at bedside to clear Continue CBI for now. 10/01 89 y.o female with gross hematuria. Pedraza irrigated at bedside to clear Will start Amicar CBI now. 10/02 89 y.o female with gross hematuria and staghorn calculus which is non obstructing Continue Amicar CBI for now Not sure that this drop in her Hgb is related to gross hematuria. Receiving one unit PRBC's now. 10/03 89 y.o female with gross hematuria and staghorn calculus which is non obstructing Continue Amicar CBI for now Consider GI consult for black stools. 10/06 89 y.o female with gross hematuria and staghorn calculus which is non obstructing Hematuria has resolved Maintain pedraza catheter Irrigate prn
--- NOTE | 2017-10-06 11:41 | P.CONPAL ---
Consult Service: Palliative Care Requesting Physician: Bar Olivera Reason for Consult: a. To assist with evaluation and management of symptoms including: Restlessness , agitation b. To assist medical decision maker(s) with: better understanding of current medical conditions; weighing benefits/burdens of medical treatment options; making medical treatment decisions. Primary Care Provider: Blue Holman MD History of Present Illness History of Present Illness: This 89-year-old female, with a history of recurrent UTI, GI bleeding, and end stage dementia (nonverbal for 3 years, jail resident for a year), was brought from her nursing facility to the emergency department on 09/29/17 with a complaint of "vaginal bleeding." Evaluation in the emergency department revealed gross hematuria. Specific findings included: * Nonverbal, ill-appearing * Temp 98.6, pulse 112, respirations 18, blood pressure 82/56, oxygen saturation 95% * Basil hematuria * White count 30.1, hemoglobin 12.7 * Sodium 144, creatinine 1.71, albumin 2.6 * Urinalysis consistent with infection and hematuria * Ultrasound of abdomen and bladder revealed renal stones * CT abdomen/pelvis reported a left kidney staghorn calculus The patient was in shock and required fluid resuscitation as well as Levophed. Continuous bladder irrigation was initiated by the following day, cultures were growing E. coli ESBL. The patient gradually improved and was able to come off pressors by 10/01/17, but her hemoglobin was as low as 7 and she was transfused. Infectious Disease consultation recommended ertapenem for 2 weeks (or longer if needed). The patient was able to come out of the ICU on 10/02/17, but did have tarry stools reported on 10/03. Her white count was down to 18.9. She underwent EGD on 10/05/17, and duodenitis was noted. By the date of this consultation, her hematuria had essentially resolved. When fed, the patient is eating moderate amounts now, and she is alert but remains essentially nonverbal other than some non-understandable mumbling. The patient had some apparent restlessness and agitation earlier in her hospitalization, and she gets a little combative with the [employer]ING [employer] CLERK who is trying to clean her up this morning, but is calm and peaceful at the time of my evaluation. The patient's daughter notes that she has had multiple urine infections over the past few years; "they never really seemed to clear up." Palliative Care was consulted to assist with symptom management, and to enter into discussions with family regarding the patient's illnesses, the prognosis, and the benefits and burdens of the various treatment choices. Function/Cognitive Trajectory: Long-term resident of nursing facility, nonverbal, continuously confused. Review of Systems other (History per daughter, medical records, and staff) Constitutional: Reports weakness Eyes: Denies irritation Ears, Nose, Mouth, and Throat: Denies mouth lesions Cardiovascular: Denies foot swelling, Denies shortness of breath Respiratory: Denies cough, Denies shortness of breath Gastrointestinal: Reports black, tarry stools (Noted on 10/03/17), Denies vomiting blood Genitourinary: Reports blood in urine Musculoskeletal: Reports muscle weakness (Global) Skin/Breast: Denies sores, Denies yellowing of the skin Neurologic: Reports abnormal speech (Chronic), Reports confusion (Chronic), Denies convulsions, Denies seizure-like activity Psychiatric: Reports difficulty concentrating (Restless at times) Endocrine: Denies increased hunger Hematologic/Lymphatic: Denies easy bruising Allergic/Immunologic: Denies hives PMFSH - History History Provided By: Family Member - Medical / Surgical Hx Neg / Unobtainable Medical Problems Denied: Unable to Obtain - Medical History Medical History: Medical History (Last Updated 10/06/17 @ 11:35 by Fatimah Stapleton MD) Dementia Duodenal ulcer Hypertension Malnutrition of moderate degree UTI (urinary tract infection) - Surgical History Surgical History: Surgical History (Last Updated 10/06/17 @ 11:35 by Fatimah Stapleton MD) History of esophagogastroduodenoscopy (EGD) - Family History Family History: Family History (Last Updated 10/06/17 @ 16:47 by Fatimah Stapleton MD) Sister Dementia Father Advanced age - Tobacco History Second Hand Smoke Exposure: Yes Smoking Status: Never smoker - Alcohol History How Often Do You Have a Drink Containing Alcohol: Never - Substance Use History Substance History: No History of Abuse - Travel History Recent Travel in the [place] Within the Last 8 Weeks: No Recent Travel Out of the Country Within the Last 8 Weeks: No - Immunization History Tetanus Immunization: Unable to Assess Medications and Allergies Active Medications: Active Medications Acetaminophen (Tylenol) 650 mg PO Q6H PRN PRN Reason: PAIN 1-10 AND/OR FEVER >101F Last Admin: 10/06/17 05:09 Dose: 650 mg Al Hydroxide/Mg Hydroxide (Milk Of Magnesia Liq) 30 ml PO Q12H PRN PRN Reason: Mild Constipation Albuterol (Duoneb Neb (Prn)) 1 ampul NEB Q2HR NEB PRN PRN Reason: WHEEZING Last Admin: 10/05/17 16:37 Dose: 1 ampul Belladonna Alkaloids/Opium (B & O Supp) 60 mg RECTAL Q6H PRN PRN Reason: ABDOMINAL PAIN Last Admin: 10/05/17 06:19 Dose: 60 mg Bisacodyl (Dulcolax Supp) 10 mg RECTAL DAILY PRN PRN Reason: SEVERE CONSITIPATION Chlorhexidine Gluconate (Chlorhexidine 2% Cloth) 3 pack TOPICAL FELT HANGER [facility] Stop: 10/07/17 01:04 Sodium Chloride 3,000 ml/ (Aminocaproic Acid 3,000 mg) 0 ml IRRIGATION CONT [facility] Last Admin: 10/03/17 00:51 Dose: 3,000 irrig.soln Famotidine (Pepcid Pf Inj) 10 mg IV.PUSH Q12HR [facility] Last Admin: 10/06/17 08:16 Dose: 10 mg Ertapenem 1,000 mg/ Sodium (Chloride) 100 mls @ 100 mls/hr IV.SIG Q24H [facility] Last Infusion: 10/06/17 01:18 Dose: Infused Lactated Ringer's (Lr 1000 Ml Inj) 1,000 mls @ 30 mls/hr IV.SIG .Q24H [facility] Stop: 10/07/17 01:04 Last Admin: 10/06/17 02:03 Dose: Not Given Sodium Chloride (Ns Inj) 500 mls @ 30 mls/hr IV.SIG .Q10H [facility] Stop: 10/07/17 01:04 Sodium Chloride 38.5 meq/ (Sterile Water) 1,009.625 mls @ 42 mls/hr IV.CONT .Q24H [facility] Last Admin: 10/05/17 12:20 Dose: 42 mls/hr Lactulose (Lactulose Liq) 30 ml PO DAILY PRN PRN Reason: SEVERE CONSITIPATION Ondansetron HCl (Zofran Inj) 4 mg IV.PUSH Q6H PRN PRN Reason: NAUSEA OR VOMITING Phenazopyridine HCl (Pyridium) 100 mg PO Q8HR [facility] Last Admin: 10/06/17 05:09 Dose: 100 mg Povidone Iodine (Betadine 5% Antisepsis Kit) 1 applicatio EACH NARE F[employer]T HANGER [facility] Stop: 10/07/17 01:04 Senna/Docusate Sodium (Trina-Colace) 1 tab PO BID [facility] Last Admin: 10/06/17 08:20 Dose: Not Given Sennosides (Senokot) 17.2 mg PO Q12H PRN PRN Reason: Moderate Constipation Sodium Chloride (Ns Flush) 2 ml IV.FLUSH PRN PRN PRN Reason: FLUSH AFTER USING IV ACCESS Sodium Chloride (Ns Flush) 2 ml IV.FLUSH BID [facility] Last Admin: 10/06/17 08:16 Dose: 2 ml Allergies Allergy/AdvReac Type Severity Reaction Status Date / Time No Known Allergies Allergy Unknown Uncoded 08/07/17 18:55 Advance Directives Healthcare Surrogate: Yes Health Care Surrogate Name and Number: Franco Henry [phone] Power of Oxidized Finish Plater: Yes Power of Oxidized Finish Plater Name: Daughter Power of Oxidized Finish Plater Relationship to Patient: Children Family/friends goals: The patient's daughter wants to transition to comfort measures, and would like to engage hospice services when the patient is discharged hospital. Ethical and Legal Issues: The patient has dementia and does not communicate. The patient lacks capacity for decision-making, and she will not regain that capacity. Daughter Diamond Henry his designated healthcare surrogate. Physical Exam Vital Signs: Vital Signs - 24 hr 10/05/17 12:00 10/05/17 13:45 10/05/17 16:00 Temperature 98.2 F 98.6 F Pulse Rate 84 89 Respiratory Rate 22 24 Blood Pressure 143/75 H 132/74 Pulse Oximetry 94 L 94 L 94 L 10/05/17 16:39 10/05/17 20:00 10/05/17 20:09 Temperature 98.8 F Pulse Rate 89 104 H 87 Respiratory Rate 19 20 Blood Pressure 116/56 L Pulse Oximetry 94 L 10/06/17 00:00 10/06/17 00:02 10/06/17 04:00 Temperature 99.4 F 100.2 F H Pulse Rate 94 H 86 90 Respiratory Rate 18 18 Blood Pressure 155/73 H 147/80 H Pulse Oximetry 93 L 95 10/06/17 10:17 Temperature Pulse Rate Respiratory Rate Blood Pressure Pulse Oximetry 95 I&O: Intake & Output 10/04/17 10/05/17 10/06/17 10/07/17 06:59 06:59 06:59 06:59 Intake Total 2990 / 2990 1100 / 1100 710 / 710 Output Total 5925 / 5925 3150 / 3150 1300 / 1300 850 / 850 Balance -2935 / -2935 -0 / -2050 -590 / -590 -850 / -850 Weight 73.5 kg 71.2 kg 70 kg Physical Exam: CONSTITUTIONAL/GENERAL: This is an elderly, weak, nonverbal patient, in no apparent distress. TUBES/LINES/DRAINS: Peripheral IV, SCDs, Pelaez SKIN: No jaundice, rashes, or lesions. Ecchymoses on upper extremities. No wounds seen anteriorly. Skin temperature appropriate. Not diaphoretic. HEAD: Atraumatic. Normocephalic. EYES: Pupils equal and round and reactive. Extraocular motions intact. No scleral icterus. No injection or drainage. Fundi not examined. ENT: Difficult to assess hearing. Nose without bleeding or purulent drainage. Throat without visible erythema, exudates, masses, or lesions. NECK: Trachea midline. Supple, nontender. No palpable thyroid enlargement or nodularity. CARDIOVASCULAR: Regular rate and rhythm without murmurs, gallops, or rubs. No JVD. Peripheral pulses diminished. RESPIRATORY/CHEST: Symmetric, unlabored respirations. Clear to auscultation. Breath sounds equal bilaterally. No wheezes, rales, or rhonchi. GASTROINTESTINAL: Abdomen soft, non-tender, nondistended. No hepato-splenomegaly , or palpable masses. No guarding. Bowel sounds present. GENITOURINARY: Without palpable bladder distension. Pelaez catheter in place. MUSCULOSKELETAL: Extremities without clubbing, cyanosis, or edema. No joint tenderness or effusion noted. No calf tenderness. No mottling or clubbing. LYMPHATICS: No palpable cervical or supraclavicular adenopathy. NEUROLOGICAL: Awake and alert. Does not follow simple commands. Mumbles. Moves all extremities minimal amounts. PSYCHIATRIC: No obvious anxiety/depression. no apparent hallucinations or other psychotic thought process. Diagnostic Tests Laboratory: Laboratory Results - last 72 hr 10/03/17 10/03/17 10/03/17 03:18 11:29 14:00 WBC RBC Hgb Hct MCV MCH MCHC RDW Plt Count MPV Prelim Diff (Auto) Neut % (Auto) Lymph % (Auto) [place] % (Auto) Eos % (Auto) Baso % (Auto) Neut # (Auto) Lymph # (Auto) [place] # (Auto) Eos # (Auto) Baso # (Auto) WBC Differential Seg Neuts % (Manual) Band Neuts % (Manual) Lymphocytes % (Manual) Monocytes % (Manual) Eosinophils % (Manual) Myelocytes % (Man) Promyelocytes % (Man) Abs Neuts (Manual) Differential Comment Platelet Estimate Platelet Morphology PT 11.3 INR 1.1 Sodium Potassium Chloride Carbon Dioxide Anion Gap BUN Creatinine Estimated GFR POC Glucose 101 Random Glucose Calcium Prot Corrected Calcium Phosphorus Magnesium B-Natriuretic Peptide 540 H Total Protein Albumin 10/03/17 10/04/17 10/04/17 17:40 00:16 05:32 WBC RBC Hgb Hct MCV MCH MCHC RDW Plt Count MPV Prelim Diff (Auto) Neut % (Auto) Lymph % (Auto) [place] % (Auto) Eos % (Auto) Baso % (Auto) Neut # (Auto) Lymph # (Auto) [place] # (Auto) Eos # (Auto) Baso # (Auto) WBC Differential Seg Neuts % (Manual) Band Neuts % (Manual) Lymphocytes % (Manual) Monocytes % (Manual) Eosinophils % (Manual) Myelocytes % (Man) Promyelocytes % (Man) Abs Neuts (Manual) Differential Comment Platelet Estimate Platelet Morphology PT INR Sodium Potassium Chloride Carbon Dioxide Anion Gap BUN Creatinine Estimated GFR POC Glucose 116 H 120 H 110 Random Glucose Calcium Prot Corrected Calcium Phosphorus Magnesium B-Natriuretic Peptide Total Protein Albumin 10/04/17 10/04/17 10/05/17 07:43 07:45 00:26 WBC 11.4 H RBC 3.08 L Hgb 9.0 L Hct 26.6 L MCV 86.4 MCH 29.2 MCHC 33.8 RDW 15.9 Plt Count 94 L MPV 9.1 Prelim Diff (Auto) Slide review pending Neut % (Auto) 68.5 Lymph % (Auto) 16.7 [place] % (Auto) 11.8 H Eos % (Auto) 2.7 Baso % (Auto) 0.3 Neut # (Auto) 7.8 H Lymph # (Auto) 1.9 [place] # (Auto) 1.4 H Eos # (Auto) 0.3 Baso # (Auto) 0.0 WBC Differential Manual diff final Seg Neuts % (Manual) 73 H Band Neuts % (Manual) 1 Lymphocytes % (Manual) 14 Monocytes % (Manual) 6 Eosinophils % (Manual) 4 Myelocytes % (Man) 1 H Promyelocytes % (Man) 1 H Abs Neuts (Manual) 8.7 H Differential Comment . Platelet Estimate Low L Platelet Morphology Normal PT INR Sodium 146 H Potassium 3.8 Chloride 117 H Carbon Dioxide 21.8 Anion Gap 7 BUN 15 Creatinine 0.80 Estimated GFR 68 L POC Glucose 86 Random Glucose 96 Calcium 7.4 L* Prot Corrected Calcium Phosphorus 2.1 L Magnesium 1.6 B-Natriuretic Peptide Total Protein Albumin 2.1 L 10/05/17 10/05/17 10/05/17 06:09 07:30 07:30 WBC 9.7 RBC 2.91 L Hgb 8.6 L Hct 25.3 L MCV 87.0 MCH 29.6 MCHC 34.0 RDW 15.6 Plt Count 80 L MPV 9.1 Prelim Diff (Auto) Neut % (Auto) Lymph % (Auto) [place] % (Auto) Eos % (Auto) Baso % (Auto) Neut # (Auto) Lymph # (Auto) [place] # (Auto) Eos # (Auto) Baso # (Auto) WBC Differential Seg Neuts % (Manual) Band Neuts % (Manual) Lymphocytes % (Manual) Monocytes % (Manual) Eosinophils % (Manual) Myelocytes % (Man) Promyelocytes % (Man) Abs Neuts (Manual) Differential Comment Platelet Estimate Platelet Morphology PT INR Sodium 147 H Potassium 3.9 Chloride 114 H Carbon Dioxide 25.7 Anion Gap 7 BUN 10 Creatinine 0.84 Estimated GFR 64 L POC Glucose 106 Random Glucose 96 Calcium 7.2 L* Prot Corrected Calcium 7.9 L Phosphorus Magnesium B-Natriuretic Peptide Total Protein 5.7 L D Albumin 10/06/17 10/06/17 10/06/17 01:23 03:22 03:22 WBC 11.0 RBC 3.02 L Hgb 8.7 L Hct 26.3 L MCV 87.0 MCH 28.7 MCHC 33.0 RDW 15.6 Plt Count 155 D MPV 8.5 Prelim Diff (Auto) Neut % (Auto) 70.9 H Lymph % (Auto) 14.6 [place] % (Auto) 11.3 H Eos % (Auto) 3.0 Baso % (Auto) 0.2 Neut # (Auto) 7.8 H Lymph # (Auto) 1.6 [place] # (Auto) 1.2 H Eos # (Auto) 0.3 Baso # (Auto) 0.0 WBC Differential . Seg Neuts % (Manual) Band Neuts % (Manual) Lymphocytes % (Manual) Monocytes % (Manual) Eosinophils % (Manual) Myelocytes % (Man) Promyelocytes % (Man) Abs Neuts (Manual) Differential Comment Auto diff final Platelet Estimate Platelet Morphology PT INR Sodium 146 H Potassium 3.8 Chloride 111 H Carbon Dioxide 27.3 Anion Gap 8 BUN 9 Creatinine 0.94 Estimated GFR 56 L POC Glucose 107 Random Glucose 107 H Calcium 7.3 L* Prot Corrected Calcium Phosphorus 2.6 Magnesium 1.8 B-Natriuretic Peptide Total Protein Albumin 2.1 L Result Diagrams: 10/06/17 03:22 10/06/17 03:22 Microbiology: Microbiology 10/05/17 12:00 Aerobic Blood Culture - Preliminary Blood - Peripheral No growth in 1 day Anaerobic Blood Culture - Preliminary No growth in 1 day 09/29/17 16:10 Aerobic Blood Culture - Final Blood - Peripheral Escherichia coli ESBL positive Proteus mirabilis Anaerobic Blood Culture - Final Escherichia coli ESBL positive 10/03/17 15:47 Occult Blood - Final Stool Hemoccult positive 09/29/17 16:30 Aerobic Blood Culture - Final Blood - Peripheral Escherichia coli ESBL positive Anaerobic Blood Culture - Final Escherichia coli ESBL positive Imaging: Abdomen/Pelvis CT 09/29/17 00:00 CONCLUSION: Staghorn calculus in the left kidney. Abdomen/Bladder Ultrasound 09/29/17 12:23 CONCLUSION: 1. Suspected 3 nonobstructing left renal stones measuring up to 16 mm. 2. No other significant abnormality is identified. There is a simple cyst in the lower pole the right kidney measuring 18 mm. Abdomen X-Ray 10/02/17 00:00 CONCLUSION: 1. Bowel gas pattern is within normal limits. There are no findings to indicate obstruction. 2. Staghorn-type calculus in the left kidney is again visualized. Chest X-Ray 10/04/17 06:01 CONCLUSION: 1. Hypoinflation with stable elevation of the right hemidiaphragm. 2. Minimal atelectatic changes in the left lung base with some stable, mild airspace disease laterally in the right perihilar distribution. Procedures: EGD 10/05/17 Patient/Family Conference Present at Family Conference: Daughter Family Conference Time: 39 Family Conference Location: Consult Room Issues Discussed: * Palliative care role, purpose, approach * Hospice care role, purpose, approach * Additional medical, psychosocial, and spiritual history * Patients general health, functional status, and cognitive changes in the months leading up to the current hospitalization * Patient/family understanding of the current medical problems * Patient/family understanding of prognosis * Patients goals of care as best understood from advance directives and/or conversations and/or values * Current medical treatment options and benefits/burdens of those options * Likely scenarios comparing ongoing aggressive care with a transition to comfort measures only * Questions answered to the best of my ability * Palliative care contact information provided Assessment and Plan - Disease Oriented Problem List (1) Septic shock due to Escherichia coli (2) Staghorn calculus (3) Recurrent UTI (urinary tract infection) (4) Infection due to ESBL-producing Escherichia coli - Symptom Scale (1) Restlessness and agitation 0-10 Scale: Unable to quantify Pertinent Non-Medical Issues: Psychosocial: Originally from [place], came to [place] a couple years ago, was living with daughter but now living [facility] the past year. 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 Spiritual: [employer] background, spirituality has been important for her, and the daughter would like a cable weaver to visit the patient. Legal: The patient lacks capacity for decision-making, and she will not regain that capacity. Daughter Diamond Henry his designated healthcare surrogate. Ethical issues impacting care: None. Important Contacts: Daughter: Diamond Henry [phone] Prognosis: This patient has end-stage dementia, has recurrent UTI and now has survived septic shock, and is a long-term jail resident. Her prognosis is poor. She is appropriate for hospice services if the goals become comfort oriented. Code Status: No Code DNR Plan: * DO NOT RESUSCITATE * DECISION-MAKING: The patient lacks capacity for decision-making and she will not regain that capacity. * GOALS: The patient's daughter requests DNR status. She also wants to transition to comfort measures so that the patient does not need to keep coming back to the hospital when infections occur, and she has requested a consult with hospice to discuss possibly engaging their services when the patient is discharged from this facility. * Hospice consult placed. * Request for cable weaver visit placed. * SYMPTOMS: The patient's agitation and restlessness seems to be easily managed by calm and comforting words and light touch. I have no further medication recommendations at this time. * Palliative Care will continue to follow the patient during this hospitalization. Time Spent Total Floor Time (mins): 77 Face to Face Time (mins): 20 >50% Time in Counseling or Coordination of Care: Yes Appreciation Thank you for the opportunity to participate in the care of Purnima Hare Mendes.
[2017-10-06] MEDS: Sodium Chloride 23.4% Inj 38.5 MEQ in Water for Inj, Sterile 1,000 ML IV.CONT SCH (12:46)
--- NOTE | 2017-10-06 12:59 | P.PN ---
Subjective Interval history: Follow up: Septic shock- resolved Patient appears to be at baseline nonverbal, unable to follow commands pedraza draining orange colored urine Physical Exam Vital signs: Vital Signs 10/05/17 13:45 10/05/17 16:00 10/05/17 16:39 Temperature 98.6 F Pulse Rate 89 89 Respiratory Rate 24 19 Blood Pressure 132/74 Pulse Oximetry 94 L 94 L 10/05/17 20:00 10/05/17 20:09 10/06/17 00:00 Temperature 98.8 F 99.4 F Pulse Rate 104 H 87 94 H Respiratory Rate 20 18 Blood Pressure 116/56 L 155/73 H Pulse Oximetry 94 L 93 L 10/06/17 00:02 10/06/17 04:00 10/06/17 10:17 Temperature 100.2 F H Pulse Rate 86 90 Respiratory Rate 18 Blood Pressure 147/80 H Pulse Oximetry 95 95 Intake & Output 10/05/17 10/06/17 10/06/17 18:59 06:59 18:59 Intake Total 560 / 560 150 / 150 1009.625 / 1009.625 Output Total 1300 / 1300 1600 / 1600 Balance 560 / 560 -1150 / -1150 -590.375 / -590.375 Weight 70 kg Intake: IV 100 / 100 1009.625 / 1009.625 Sodium Chloride 23.4% Inj 38.5 1009.625 / 1009.625 MEQ In Sterile Water for Inj 1, 000 ML @ 42 mls/hr IV.CONT . Q24H WADE Rx#:[id number] INVanz Inj 1,000 MG In NS Inj 100 / 100 100 ML @ 100 mls/hr IV.SIG Q24H WADE Rx#:[id number] Oral 360 / 360 Anesthesia Amount 200 / 200 Bladder Irrigation Fluid - 50 / 50 Amount Retained 3-way Urethral 50 / 50 Output: Urine 1300 / 1300 Urine Amount (Catheter) 1600 / 1600 3-way Urethral 1600 / 1600 Other: Bladder Irrigation Fluid - Amount Instilled 3-way Urethral 750 Bladder Irrigation Fluid - Amount Drained 3-way Urethral 800 # Voids 2,450 # Bowel Movements 1 1 Narrative: GENERAL: Patient sitting up in bed. Nonverbal as baseline Hematuria appears resolved. SKIN: Warm and dry. HEAD: Normocephalic. EYES: No scleral icterus. No injection or drainage. NECK: Supple, trachea midline. No JVD. CARDIOVASCULAR: Regular rate and rhythm RESPIRATORY: Breath sounds equal bilaterally. No accessory muscle use. No crackles. GASTROINTESTINAL: Abdomen soft, non-tender, nondistended. MUSCULOSKELETAL: No cyanosis. Trace peripheral edema. BACK: Nontender without obvious deformity. No CVA tenderness. - Urinary Catheter Management Straight Cath placed during this visit: yes Reason for continuing: Gross Hematuria Insertion date: 09/29/17 Insertion time: 14:51 3-way Urethral Cath placed during this visit: yes Reason for continuing: Gross Hematuria Insertion date: 10/02/17 Insertion time: 00:00 Results - Labs CBC & Chem 7: 10/06/17 03:22 10/06/17 03:22 Laboratory Results - last 24 hr 10/06/17 10/06/17 10/06/17 01:23 03:22 03:22 WBC 11.0 RBC 3.02 L Hgb 8.7 L Hct 26.3 L MCV 87.0 MCH 28.7 MCHC 33.0 RDW 15.6 Plt Count 155 D MPV 8.5 Neut % (Auto) 70.9 H Lymph % (Auto) 14.6 [place] % (Auto) 11.3 H Eos % (Auto) 3.0 Baso % (Auto) 0.2 Neut # (Auto) 7.8 H Lymph # (Auto) 1.6 [place] # (Auto) 1.2 H Eos # (Auto) 0.3 Baso # (Auto) 0.0 WBC Differential . Differential Comment Auto diff final Sodium 146 H Potassium 3.8 Chloride 111 H Carbon Dioxide 27.3 Anion Gap 8 BUN 9 Creatinine 0.94 Estimated GFR 56 L POC Glucose 107 Random Glucose 107 H Calcium 7.3 L* Phosphorus 2.6 Magnesium 1.8 Albumin 2.1 L Microbiology 10/05/17 12:00 Blood - Peripheral Aerobic Blood Culture - Preliminary No growth in 1 day 10/05/17 12:00 Blood - Peripheral Anaerobic Blood Culture - Preliminary No growth in 1 day Assessment and Plan - Plan Assessment: 89yF with end-stage dementia and septic shock secondary to urinary tract infection/acute pyelonephritis. d/c mivf. recheck h&h after blood transfusion. f/u sensitivities for final abx regimen. can likely transfer out of ICU soon, now out of shock. Plan by systems: Neuro: end-stage severe dementia- nonverbal at baseline frequent neuro checks avoid long-acting sedatives CV: Septic Shock- resolved d/c mivf //Suspected CHF/fluid overload Chest x-ray 10/03 with perihilar fullness. Improved after single dose of Lasix. BNP 500s. Continue to monitor respiratory status. Check echocardiogram. Continue to monitor closely. = 10/05. Echocardiogram pending. Continue to monitor fluid status closely. Renal: Acute pyelonephritis Acute hematuria Acute kidney injury urology consult continue CBI: now adding Amicar to CBI to help with ongoing hematuria. abx as below trend Cr on daily bmp frequent uop monitoring = 10/02. Continues with hematuria and anemia likely secondary to hematuria, staghorn calculi. Discussed with Dr. Summers. Will continue on continuous bladder irrigation as per urology. = 10/03. Hematuria improving. Continue CBI as per urology. = 10/04. Still with some hematuria. Continue CBI. = 10/06 no longing having hematuria. CBI has been stopped FEN/GI: Acute protein calorie malnutrition- moderate Lactic Acidosis- resolved Acute anion-gap metabolic acidosis- resolved speech consult for swallow eval, advance diet after that daily bmp ICU electrolyte protocol //Hypernatremia. = 10/02 sodium 153. Will start on half normal saline. = 10/03. Sodium 150. Improving slowly. Continue half normal saline. = 10/04. Sodium improving 146. Off IV fluids due to CHF. = 10/05. Sodium 147. Will place on one quarter normal saline at low rate due to suspected CHF. = 10/06. Sodium 146 continue one quarter normal saline at low rate due. recheck BMP in AM Heme/ID: Anemia secondary to acute blood loss- worsening Septic Shock- resolved Acute pyelonephritis ESBL E. Coli UTI 1gm ertapenem iv q24h. continue to follow up formal sensitivities. s/p 1 unit prbc. recheck H&H. transfuse to keep hgb > 7. daily cbc = 10/02. Hemoglobin down to 7. 3, likely secondary to hematuria. 1 unit of PRBCs ordered today. Follow-up tomorrow. Continue antibiotics for ESBL E. coli. = 10/03. Reports of melena. Hemoglobin stable. Consult GI order Hemoccult = 10/04. GI following. Appreciate assistance. = 10/05. Leukocytosis improving. GI following for anemia likely secondary to GI losses. Hematuria has resolved but still hemoglobin is slowly trending down. Await endoscopy. Urology following. Hopefully can stop bladder irrigation. Repeat blood cultures today. Continue on IV antibiotics as per ID for gram-negative bacteremia. Echocardiogram pending. = CBI has been stopped by urology Endo: Hyperglycemia of critical illness SSI = 10/02. Glucose appears stable. Discontinue tomorrow if continues stable. = Insulin sliding scale appears to have been discontinued. Glucose stable. Prophylaxis: SCDs hold pharmacologic dvt prophylaxis given active hematuria, anemia Lines: = 10/02 central line has been discontinued. 09/29 3-way CBI Pedraza 10/06 patient 24 hour T max 100.[address] Peter notified and will see the patient palliative care meeting with the patient's family this afternoon at 4PM Discharge Planning: Continues on IV antibiotics for ESBL E. coli. We will need ID clearance We will need urology clearance. Family wishes to speak with palliative care service. Consult placed, family meeting this after noon at 4PM Hospice vs SNF at discharge. Patient has advance Alzheimers dx would be appropriate for Hospice Discussed case with Supervising physician Dr. Torre
--- NOTE | 2017-10-06 13:49 | P.PNID ---
Subjective Remarks: pt is having low grade fevers in 100-101 F Antibiotics: ertapenem Allergies/Adverse Reactions: Allergies No Known Allergies Allergy (Unknown, Uncoded 08/07/17 18:55) Objective Vital Signs 10/05/17 13:45 10/05/17 16:00 10/05/17 16:39 Temperature 98.6 F Pulse Rate 89 89 Respiratory Rate 24 19 Blood Pressure 132/74 Pulse Oximetry 94 L 94 L 10/05/17 20:00 10/05/17 20:09 10/06/17 00:00 Temperature 98.8 F 99.4 F Pulse Rate 104 H 87 94 H Respiratory Rate 20 18 Blood Pressure 116/56 L 155/73 H Pulse Oximetry 94 L 93 L 10/06/17 00:02 10/06/17 04:00 10/06/17 08:00 Temperature 100.2 F H 98.4 F Pulse Rate 86 90 79 Respiratory Rate 18 20 Blood Pressure 147/80 H 134/75 Pulse Oximetry 95 96 10/06/17 10:17 10/06/17 12:00 Temperature 98.7 F Pulse Rate 70 Respiratory Rate 18 Blood Pressure 140/76 Pulse Oximetry 95 95 Intake & Output 10/05/17 10/06/17 10/06/17 18:59 06:59 18:59 Intake Total 560 / 560 150 / 150 1009.625 / 1009.625 Output Total 1300 / 1300 1600 / 1600 Balance 560 / 560 -1150 / -1150 -590.375 / -590.375 Weight 70 kg Intake: IV 100 / 100 1009.625 / 1009.625 Sodium Chloride 23.4% Inj 38.5 1009.625 / 1009.625 MEQ In Sterile Water for Inj 1, 000 ML @ 42 mls/hr IV.CONT . Q24H WADE Rx#:[id number] INVanz Inj 1,000 MG In NS Inj 100 / 100 100 ML @ 100 mls/hr IV.SIG Q24H WADE Rx#:[id number] Oral 360 / 360 Anesthesia Amount 200 / 200 Bladder Irrigation Fluid - 50 / 50 Amount Retained 3-way Urethral 50 / 50 Output: Urine 1300 / 1300 Urine Amount (Catheter) 1600 / 1600 3-way Urethral 1600 / 1600 Other: Bladder Irrigation Fluid - Amount Instilled 3-way Urethral 750 Bladder Irrigation Fluid - Amount Drained 3-way Urethral 800 # Voids 2,450 # Bowel Movements 1 1 08/26/18 12:00 Blood - Peripheral Aerobic Blood Culture - Preliminary No growth in 1 day 10/05/17 12:00 Blood - Peripheral Anaerobic Blood Culture - Preliminary No growth in 1 day 09/29/17 16:10 Blood - Peripheral Aerobic Blood Culture - Final Escherichia coli ESBL positive Proteus mirabilis 09/29/17 16:10 Blood - Peripheral Anaerobic Blood Culture - Final Escherichia coli ESBL positive 10/03/17 15:47 Stool Occult Blood - Final Hemoccult positive 09/29/17 16:30 Blood - Peripheral Aerobic Blood Culture - Final Escherichia coli ESBL positive 09/29/17 16:30 Blood - Peripheral Anaerobic Blood Culture - Final Escherichia coli ESBL positive Lab - Hematology Results 10/05/17 10/06/17 07:30 03:22 WBC 9.7 11.0 RBC 2.91 L 3.02 L Hgb 8.6 L 8.7 L Hct 25.3 L 26.3 L MCV 87.0 87.0 MCH 29.6 28.7 MCHC 34.0 33.0 RDW 15.6 15.6 Plt Count 80 L 155 D MPV 9.1 8.5 Neut % (Auto) 70.9 H Lymph % (Auto) 14.6 [place] % (Auto) 11.3 H Eos % (Auto) 3.0 Baso % (Auto) 0.2 Neut # (Auto) 7.8 H Lymph # (Auto) 1.6 [place] # (Auto) 1.2 H Eos # (Auto) 0.3 Baso # (Auto) 0.0 WBC Differential . Differential Comment Auto diff final Lab - Chemistry Results 10/05/17 10/05/17 10/05/17 00:26 06:09 07:30 Sodium 147 H Potassium 3.9 Chloride 114 H Carbon Dioxide 25.7 Anion Gap 7 BUN 10 Creatinine 0.84 Estimated GFR 64 L POC Glucose 86 106 Random Glucose 96 Calcium 7.2 L* Prot Corrected Calcium 7.9 L Phosphorus Magnesium Total Protein 5.7 L D Albumin 10/06/17 10/06/17 01:23 03:22 Sodium 146 H Potassium 3.8 Chloride 111 H Carbon Dioxide 27.3 Anion Gap 8 BUN 9 Creatinine 0.94 Estimated GFR 56 L POC Glucose 107 Random Glucose 107 H Calcium 7.3 L* Prot Corrected Calcium Phosphorus 2.6 Magnesium 1.8 Total Protein Albumin 2.1 L Imaging: ITS Impressions Abdomen/Pelvis CT 09/29/17 00:00 CONCLUSION: Staghorn calculus in the left kidney. Abdomen/Bladder Ultrasound 09/29/17 12:23 CONCLUSION: 1. Suspected 3 nonobstructing left renal stones measuring up to 16 mm. 2. No other significant abnormality is identified. There is a simple cyst in the lower pole the right kidney measuring 18 mm. Abdomen X-Ray 10/02/17 00:00 CONCLUSION: 1. Bowel gas pattern is within normal limits. There are no findings to indicate obstruction. 2. Staghorn-type calculus in the left kidney is again visualized. Chest X-Ray 10/04/17 06:01 CONCLUSION: 1. Hypoinflation with stable elevation of the right hemidiaphragm. 2. Minimal atelectatic changes in the left lung base with some stable, mild airspace disease laterally in the right perihilar distribution. Physical Exam: GENERAL: NAD SKIN: Warm and dry. CARDIOVASCULAR: Regular rate and rhythm. RESPIRATORY: No accessory muscle use. Clear to auscultation. Breath sounds equal bilaterally. GASTROINTESTINAL: Abdomen soft, non-tender, nondistended. Hepatic and splenic margins not palpable. MUSCULOSKELETAL: Extremities without clubbing, cyanosis, or edema. No obvious deformities. : pedraza in place with juan coloured urine NEUROLOGICAL: Awake and alert. Non verbal. Unitelli=gible sounds to noxious stimulation. Not following commands PSYCHIATRIC: unable top assess Assessment and Plan - Plan New low grade fever ESBL + E.coli sepsis 2/2 UTI Staghorn kidney stone GIB Leukocuy=tosis - improved markedly repeat UA, C+S fu P blood clx cont Ertapenem x 2 weeks; longer course with inadequate clinical response midline can be placed OPAT filleou out dw with RN
--- NOTE | 2017-10-06 13:52 | P.PNGI ---
Subjective Interval history: Pt is resting in bed, alert, non verbal, no bleeding reported by nurse. <Samantha Maxwell - Last Filed: 10/06/17 13:43> Physical Exam Vital signs: Vital Signs 10/05/17 13:45 10/05/17 16:00 10/05/17 16:39 Temperature 98.6 F Pulse Rate 89 89 Respiratory Rate 24 19 Blood Pressure 132/74 Pulse Oximetry 94 L 94 L 10/05/17 20:00 10/05/17 20:09 10/06/17 00:00 Temperature 98.8 F 99.4 F Pulse Rate 104 H 87 94 H Respiratory Rate 20 18 Blood Pressure 116/56 L 155/73 H Pulse Oximetry 94 L 93 L 10/06/17 00:02 10/06/17 04:00 10/06/17 08:00 Temperature 100.2 F H 98.4 F Pulse Rate 86 90 79 Respiratory Rate 18 20 Blood Pressure 147/80 H 134/75 Pulse Oximetry 95 96 10/06/17 10:17 10/06/17 12:00 Temperature 98.7 F Pulse Rate 70 Respiratory Rate 18 Blood Pressure 140/76 Pulse Oximetry 95 95 Intake & Output 10/05/17 10/06/17 10/06/17 18:59 06:59 18:59 Intake Total 560 / 560 150 / 150 1009.625 / 1009.625 Output Total 1300 / 1300 1600 / 1600 Balance 560 / 560 -1150 / -1150 -590.375 / -590.375 Weight 70 kg Intake: IV 100 / 100 1009.625 / 1009.625 Sodium Chloride 23.4% Inj 38.5 1009.625 / 1009.625 MEQ In Sterile Water for Inj 1, 000 ML @ 42 mls/hr IV.CONT . Q24H WADE Rx#:[id number] INVanz Inj 1,000 MG In NS Inj 100 / 100 100 ML @ 100 mls/hr IV.SIG Q24H WADE Rx#:[id number] Oral 360 / 360 Anesthesia Amount 200 / 200 Bladder Irrigation Fluid - 50 / 50 Amount Retained 3-way Urethral 50 / 50 Output: Urine 1300 / 1300 Urine Amount (Catheter) 1600 / 1600 3-way Urethral 1600 / 1600 Other: Bladder Irrigation Fluid - Amount Instilled 3-way Urethral 750 Bladder Irrigation Fluid - Amount Drained 3-way Urethral 800 # Voids 2,450 # Bowel Movements 1 1 - Constitutional no acute distress - Routine HEENT Exam Head: Present: normocephalic - Routine Respiratory Exam Present: CTA bilaterally - Routine Cardiovascular Exam Present: RRR - Routine Abdominal Exam Present: soft, normoactive bowel sounds. Absent: tenderness - Routine Skin Exam Present: intact, dry - Routine Neurological Exam Present: alert - Urinary Catheter Management Straight Cath placed during this visit: yes Reason for continuing: Gross Hematuria Insertion date: 09/29/17 Insertion time: 14:51 3-way Urethral Cath placed during this visit: yes Reason for continuing: Gross Hematuria Insertion date: 10/02/17 Insertion time: 00:00 <Samantha Maxwell - Last Filed: 10/06/17 13:43> Vital signs: Vital Signs 10/05/17 16:39 10/05/17 20:00 10/05/17 20:09 Temperature 98.8 F Pulse Rate 89 104 H 87 Respiratory Rate 19 20 Blood Pressure 116/56 L Pulse Oximetry 94 L 10/06/17 00:00 10/06/17 00:02 10/06/17 04:00 Temperature 99.4 F 100.2 F H Pulse Rate 94 H 86 90 Respiratory Rate 18 18 Blood Pressure 155/73 H 147/80 H Pulse Oximetry 93 L 95 10/06/17 08:00 10/06/17 10:17 10/06/17 12:00 Temperature 98.4 F 98.7 F Pulse Rate 79 70 Respiratory Rate 20 18 Blood Pressure 134/75 140/76 Pulse Oximetry 96 95 95 Intake & Output 10/05/17 10/06/17 10/06/17 18:59 06:59 18:59 Intake Total 560 / 560 150 / 150 1009.625 / 1009.625 Output Total 1300 / 1300 1600 / 1600 Balance 560 / 560 -1150 / -1150 -590.375 / -590.375 Weight 70 kg Intake: IV 100 / 100 1009.625 / 1009.625 Sodium Chloride 23.4% Inj 38.5 1009.625 / 1009.625 MEQ In Sterile Water for Inj 1, 000 ML @ 42 mls/hr IV.CONT . Q24H WADE Rx#:[id number] INVanz Inj 1,000 MG In NS Inj 100 / 100 100 ML @ 100 mls/hr IV.SIG Q24H WADE Rx#:[id number] Oral 360 / 360 Anesthesia Amount 200 / 200 Bladder Irrigation Fluid - 50 / 50 Amount Retained 3-way Urethral 50 / 50 Output: Urine 1300 / 1300 Urine Amount (Catheter) 1600 / 1600 3-way Urethral 1600 / 1600 Other: Bladder Irrigation Fluid - Amount Instilled 3-way Urethral 750 Bladder Irrigation Fluid - Amount Drained 3-way Urethral 800 # Voids 2,450 # Bowel Movements 1 1 - Urinary Catheter Management Straight Cath placed during this visit: no 3-way Urethral Cath placed during this visit: no <Vinnie Black - Last Filed: 10/06/17 16:16> Results - Labs CBC & Chem 7: 10/06/17 03:22 10/06/17 03:22 Laboratory Results - last 24 hr 10/06/17 10/06/17 10/06/17 01:23 03:22 03:22 WBC 11.0 RBC 3.02 L Hgb 8.7 L Hct 26.3 L MCV 87.0 MCH 28.7 MCHC 33.0 RDW 15.6 Plt Count 155 D MPV 8.5 Neut % (Auto) 70.9 H Lymph % (Auto) 14.6 [place] % (Auto) 11.3 H Eos % (Auto) 3.0 Baso % (Auto) 0.2 Neut # (Auto) 7.8 H Lymph # (Auto) 1.6 [place] # (Auto) 1.2 H Eos # (Auto) 0.3 Baso # (Auto) 0.0 WBC Differential . Differential Comment Auto diff final Sodium 146 H Potassium 3.8 Chloride 111 H Carbon Dioxide 27.3 Anion Gap 8 BUN 9 Creatinine 0.94 Estimated GFR 56 L POC Glucose 107 Random Glucose 107 H Calcium 7.3 L* Phosphorus 2.6 Magnesium 1.8 Albumin 2.1 L Microbiology 10/05/17 12:00 Blood - Peripheral Aerobic Blood Culture - Preliminary No growth in 1 day 10/05/17 12:00 Blood - Peripheral Anaerobic Blood Culture - Preliminary No growth in 1 day <Samantha Maxwell - Last Filed: 10/06/17 13:43> - Labs CBC & Chem 7: 10/06/17 03:22 10/06/17 03:22 Laboratory Results - last 24 hr 10/06/17 10/06/17 10/06/17 01:23 03:22 03:22 WBC 11.0 RBC 3.02 L Hgb 8.7 L Hct 26.3 L MCV 87.0 MCH 28.7 MCHC 33.0 RDW 15.6 Plt Count 155 D MPV 8.5 Neut % (Auto) 70.9 H Lymph % (Auto) 14.6 [place] % (Auto) 11.3 H Eos % (Auto) 3.0 Baso % (Auto) 0.2 Neut # (Auto) 7.8 H Lymph # (Auto) 1.6 [place] # (Auto) 1.2 H Eos # (Auto) 0.3 Baso # (Auto) 0.0 WBC Differential . Differential Comment Auto diff final Sodium 146 H Potassium 3.8 Chloride 111 H Carbon Dioxide 27.3 Anion Gap 8 BUN 9 Creatinine 0.94 Estimated GFR 56 L POC Glucose 107 Random Glucose 107 H Calcium 7.3 L* Phosphorus 2.6 Magnesium 1.8 Albumin 2.1 L Microbiology 10/05/17 12:00 Blood - Peripheral Aerobic Blood Culture - Preliminary No growth in 1 day 10/05/17 12:00 Blood - Peripheral Anaerobic Blood Culture - Preliminary No growth in 1 day <Vinnie Black - Last Filed: 10/06/17 16:16> Assessment and Plan (1) Anemia Status: Acute Code(s): D64.9 - Anemia, unspecified - Plan - Anemia- Likely multifactorial. No bleeding reported, hgb today 8.7, s/p EGD on 10/05/17 --->Schatzki ring, Hiatal hernia, Duodenitis - UTI - FERNANDA - CHF - Severe Dementia- poor function status, palliative on the case Plan Diet per attending Pt with severe dementia, poor function status consider comfort care GI will sign off Pt seen and examined by Dr. Black and myself and this note is written on his behalf. <Samantha Maxwell - Last Filed: 10/06/17 13:43> (1) Anemia Status: Acute Code(s): D64.9 - Anemia, unspecified - Plan Seen and examined with OPERATIONS ENGINEER, no bleeding reported by nurse. H/H stable. S/p egd , not a cndidate for colonoscopy. GI will sign off. Fatuma The exam, history, and the medical decision-making described in the above note were completed with the assistance of the mid-level provider. I reviewed and agree with the findings presented. I attest that I had a [id number] encounter with the patient on the same day, and personally performed and documented my assessment and findings in the medical record. <Vinnie Black - Last Filed: 10/06/17 16:16>
--- NOTE | 2017-10-06 15:32 | ECHRPT ---
Indication: HEART FAILURE CONCLUSIONS Normal left ventricular size. Wall thickness is normal. The left ventricular systolic function is hyperdynamic with an estimated ejection fraction in the ra nge of 65- 70%. The right ventricle is moderately dilated. The right ventricular systolic function is mildly decreased. Mild mitral valve regurgitation. There is mild tricuspid valve regurgitation. The estimated pulmonary arterial pressure is 30 mmHg. BP: / HR: Rhythm: MEASUREMENTS (Male / Female) Normal Values Technical Quality: 2D ECHO LV Diastolic Diameter PLAX 4.5 cm 4.2 - 5.9 / 3.9 - 5.3 cm LV Systolic Diameter PLAX 2.7 cm IVS Diastolic Thickness 0.8 cm 0.6 - 1.0 / 0.6 - 0.9 cm LVPW Diastolic Thickness 0.9 cm 0.6 - 1.0 / 0.6 - 0.9 cm LV Relative Wall Thickness 0.4 RV Internal Dim ED PLAX 3.3 cm LVOT Diameter 1.9 cm Aortic Root Diameter 3.7 cm LA Systolic Diameter LX 4.7 cm 3.0 - 4.0 / 2.7 - 3.8 cm M-MODE AV Cusp Separation MM 2.2 cm DOPPLER Mitral E Point Velocity 62.2 cm/s Mitral A Point Velocity 97.2 cm/s Mitral E to A Ratio 0.6 TR Peak Velocity 224.0 cm/s TR Peak Gradient 20.1 mmHg Right Atrial Pressure 10.0 mmHg Pulmonary Artery Systolic Pressu 30.1 mmHg Right Ventricular Systolic Press 30.1 mmHg FINDINGS LEFT VENTRICLE Normal left ventricular size. Wall thickness is normal. The left ventricular systolic function is hyperdynamic with an estimated ejection fraction in the ra nge of 65- 70%. RIGHT VENTRICLE The right ventricle is moderately dilated. The right ventricular systoilc function is moderately decreased. LEFT ATRIUM The left atrial size is normal. RIGHT ATRIUM The right atrial size is normal. ATRIAL SEPTUM The interatrial septum not well visualized. AORTA The aortic root and proximal ascending aorta are not well visualized. MITRAL VALVE Mild mitral valve regurgitation. AORTIC VALVE Trileaflet aortic valve. No aortic valve stenosis or regurgitation. TRICUSPID VALVE There is mild tricuspid valve regurgitation. The estimated pulmonary arterial pressure is 30.1 mmHg. PULMONARY VALVE The pulmonary valve is not well visualized. VESSELS The inferior vena cava was not well visualized. PERICARDIUM No pericardial effusion. Liz Christian MD, FACC (Electronically Signed) Final Date:06 October 2017 15:31
[2017-10-06 18:15] LABS: Bacteria,Urine Rare /hpf; Bilirubin,Urine Negative (Negative); Clarity,Urine Hazy (Clear); Color,Urine Yellow (Yellw/Straw); Glucose,Urine (UA) Negative (Negative); Leukocyte Esterase,Urine Large (Negative); Mucus,Urine Few /lpf (Occasional); Nitrite,Urine Negative (Negative); Specific Gravity,Urine 1.004 (1.002-1.035); Squamous Epithelial Cell,Urine <1 /hpf (0-5)
[2017-10-07 05:34] LABS: Calcium 7.3 mg/dL (8.5-10.1); Carbon Dioxide 26.9 meq/L (21.0-32.0); Potassium 3.8 meq/L (3.5-5.1)
[2017-10-07 06:00] LABS: Total Protein 6.1 g/dL (6.4-8.2)
[2017-10-07] MEDS: Famotidine PF Inj 20 MG/2 ML Vial IV.PUSH SCH ×2 (08:13→22:00)
[2017-10-07] MEDS: Senna/Docusate Sodium 8.6/50 MG Tablet PO SCH ×2 (08:13→22:00)
--- NOTE | 2017-10-07 08:43 | P.PNURO ---
Subjective Patient symptoms today: Pt seen and examined. Urine clear. Objective Vital Signs: Vital Signs 10/06/17 10:17 10/06/17 12:00 10/06/17 16:00 Temperature 98.7 F 98.0 F Pulse Rate 70 78 Respiratory Rate 18 18 Blood Pressure 140/76 143/69 H Pulse Oximetry 95 95 94 L 10/06/17 20:42 10/07/17 00:39 10/07/17 04:59 Temperature 98.2 F 98.8 F 97.9 F Pulse Rate 87 89 90 Respiratory Rate 18 17 17 Blood Pressure 142/74 H 146/71 H 144/70 H Pulse Oximetry 94 L 96 96 10/07/17 07:55 Temperature 98.7 F Pulse Rate 86 Respiratory Rate 20 Blood Pressure 139/71 Pulse Oximetry 92 L Intake & Output 10/06/17 10/07/17 10/07/17 18:59 06:59 18:59 Intake Total 1369.625 / 1369.625 340 / 340 Output Total 2250 / 2250 1800 / 1800 Balance -880.375 / -880.375 -1460 / -1460 Weight 70 kg Intake: IV 1009.625 / 1009.625 100 / 100 Sodium Chloride 23.4% Inj 38.5 1009.625 / 1009.625 MEQ In Sterile Water for Inj 1, 000 ML @ 42 mls/hr IV.CONT . Q24H [facility] Rx#:[id number] INVanz Inj 1,000 MG In NS Inj 100 / 100 100 ML @ 100 mls/hr IV.SIG Q24H [facility] Rx#:[id number] Oral 360 / 360 240 / 240 Output: Urine 650 / 650 1800 / 1800 Urine Amount (Catheter) 1600 / 1600 3-way Urethral 1600 / 1600 Other: # Voids 0 # Bowel Movements 2 1 Result Diagrams: 10/06/17 03:22 10/07/17 04:46 Medications and IVs: Active Medications Generic Name Dose Route Start Last Admin Trade Name Freq PRN Reason Stop Dose Admin Acetaminophen 650 mg 09/29/17 19:30 10/06/17 05:09 Tylenol PO 650 mg Q6H PRN Administration PAIN 1-10 AND/OR FEVER >101F Al Hydroxide/Mg Hydroxide 30 ml 09/29/17 19:30 Milk Of Magnesia Liq PO Q12H PRN Mild Constipation Albuterol 1 ampul 09/29/17 19:30 10/05/17 16:37 Duoneb Neb (Prn) NEB 1 ampul Q2HR NEB PRN Administration WHEEZING Belladonna Alkaloids/Opium 60 mg 10/01/17 16:32 10/05/17 06:19 B & O Supp RECTAL 60 mg Q6H PRN Administration ABDOMINAL PAIN Bisacodyl 10 mg 09/29/17 19:30 Dulcolax Supp RECTAL DAILY PRN SEVERE CONSITIPATION Sodium Chloride 3,000 ml/ 0 ml 10/01/17 16:30 10/03/17 00:51 Aminocaproic Acid 3,000 mg IRRIGATION 3,000 irrig.soln CONT [facility] Administration Famotidine 10 mg 09/29/17 21:00 10/07/17 08:13 Pepcid Pf Inj IV.PUSH 10 mg Q12HR [facility] Administration Ertapenem 1,000 mg/ Sodium 100 mls @ 100 mls/hr 09/30/17 21:00 10/07/17 03:11 Chloride IV.SIG Infused Q24H [facility] Infusion Sodium Chloride 38.5 meq/ 1,009.625 mls @ 42 mls/hr 10/05/17 12:00 10/06/17 12:46 Sterile Water IV.CONT 42 mls/hr .Q24H [facility] Administration Lactulose 30 ml 09/29/17 19:30 Lactulose Liq PO DAILY PRN SEVERE CONSITIPATION Ondansetron HCl 4 mg 09/29/17 19:30 Zofran Inj IV.PUSH Q6H PRN NAUSEA OR VOMITING Phenazopyridine HCl 100 mg 10/03/17 14:00 10/07/17 05:44 Pyridium PO Not Given Q8HR [facility] Senna/Docusate Sodium 1 tab 09/29/17 21:00 10/07/17 08:13 Trina-Colace PO Not Given BID [facility] Sennosides 17.2 mg 09/29/17 19:30 Senokot PO Q12H PRN Moderate Constipation Sodium Chloride 2 ml 09/29/17 19:30 Ns Flush IV.FLUSH PRN PRN FLUSH AFTER USING IV ACCESS Sodium Chloride 2 ml 09/29/17 21:00 10/07/17 08:13 Ns Flush IV.FLUSH 2 ml BID [facility] Administration Objective Remarks: ABd:soft,nt,nd Bladder distended. 822 Abd:soft,nt,nd Pedraza: pink on CBI 10/02 Abd:soft,nt,nd Pedraza: urine now pink on CBI 10/03 Abd:soft,nt,nd Pedraza: urine now pink on CBI 10/06 Abd:soft,nt,nd Urine: clear 10/07 Abd:soft,nt,nd Urine: clear Assessment and Plan - Plan 89 y.o female with gross hematuria. Pedraza irrigated at bedside to clear Continue CBI for now. 10/01 89 y.o female with gross hematuria. Pedraza irrigated at bedside to clear Will start Amicar CBI now. 10/02 89 y.o female with gross hematuria and staghorn calculus which is non obstructing Continue Amicar CBI for now Not sure that this drop in her Hgb is related to gross hematuria. Receiving one unit PRBC's now. 10/03 89 y.o female with gross hematuria and staghorn calculus which is non obstructing Continue Amicar CBI for now Consider GI consult for black stools. 10/06 89 y.o female with gross hematuria and staghorn calculus which is non obstructing Hematuria has resolved Maintain pedraza catheter Irrigate prn 10/07 89 y.o female with gross hematuria and staghorn calculus which is non obstructing Hematuria has resolved Maintain pedraza catheter Irrigate prn
--- NOTE | 2017-10-07 13:18 | P.PN ---
Subjective Interval history: Follow up: Septic shock- resolved Patient appears to be at baseline nonverbal, unable to follow commands pedraza draining orange colored urine family met with palliative care 10/06 plan to meet with hospice today Physical Exam Vital signs: Vital Signs 10/06/17 16:00 10/06/17 20:42 10/07/17 00:39 Temperature 98.0 F 98.2 F 98.8 F Pulse Rate 78 87 89 Respiratory Rate 18 18 17 Blood Pressure 143/69 H 142/74 H 146/71 H Pulse Oximetry 94 L 94 L 96 10/07/17 04:59 10/07/17 07:55 10/07/17 12:00 Temperature 97.9 F 98.7 F 98.7 F Pulse Rate 90 86 83 Respiratory Rate 17 20 18 Blood Pressure 144/70 H 139/71 168/91 H Pulse Oximetry 96 92 L 95 Intake & Output 10/06/17 10/07/17 10/07/17 18:59 06:59 18:59 Intake Total 1369.625 / 1369.625 340 / 340 Output Total 2250 / 2250 1800 / 1800 Balance -880.375 / -880.375 -1460 / -1460 Weight 70 kg Intake: IV 1009.625 / 1009.625 100 / 100 Sodium Chloride 23.4% Inj 38.5 1009.625 / 1009.625 MEQ In Sterile Water for Inj 1, 000 ML @ 42 mls/hr IV.CONT . Q24H [facility] Rx#:[id number] INVanz Inj 1,000 MG In NS Inj 100 / 100 100 ML @ 100 mls/hr IV.SIG Q24H [facility] Rx#:[id number] Oral 360 / 360 240 / 240 Output: Urine 650 / 650 1800 / 1800 Urine Amount (Catheter) 1600 / 1600 3-way Urethral 1600 / 1600 Other: # Voids 0 # Bowel Movements 2 1 Narrative: GENERAL: Patient sitting up in bed. Nonverbal as baseline Hematuria appears resolved. SKIN: Warm and dry. HEAD: Normocephalic. EYES: No scleral icterus. No injection or drainage. NECK: Supple, trachea midline. No JVD. CARDIOVASCULAR: Regular rate and rhythm RESPIRATORY: Breath sounds equal bilaterally. No accessory muscle use. No crackles. GASTROINTESTINAL: Abdomen soft, non-tender, nondistended. MUSCULOSKELETAL: No cyanosis. Trace peripheral edema. BACK: Nontender without obvious deformity. No CVA tenderness. - Urinary Catheter Management Straight Cath placed during this visit: yes Reason for continuing: Gross Hematuria Insertion date: 09/29/17 Insertion time: 14:51 3-way Urethral Cath placed during this visit: yes Reason for continuing: Terminally ill/Comfort care Insertion date: 10/02/17 Insertion time: 00:00 Results - Labs CBC & Chem 7: 10/06/17 03:22 10/07/17 04:46 Laboratory Results - last 24 hr 10/06/17 10/06/17 10/06/17 05:11 11:57 17:50 Sodium Potassium Chloride Carbon Dioxide Anion Gap BUN Creatinine Estimated GFR POC Glucose 130 H 157 H Random Glucose Calcium Prot Corrected Calcium Total Protein Urine Color Yellow Urine Clarity Hazy H Urine pH 7.0 Ur Specific [place] 1.004 Urine Protein Negative Urine Glucose (UA) Negative Urine Ketones Negative Urine Occult Blood Large H Urine Nitrate Negative Urine Bilirubin Negative Urine Urobilinogen Less than 2 Ur Leukocyte Esterase Large H Urine RBC 19 H Urine WBC 95 H Ur Squamous Epith Cells <1 Urine Bacteria Rare H Urine Mucus Few H Micro UA Comment Cath-culture ind Ur Microscopic Review Not Reportable Urine Culture Comments Cath-cult indicated 10/06/17 10/07/17 10/07/17 17:51 04:46 05:31 Sodium 144 Potassium 3.8 Chloride 109 H Carbon Dioxide 26.9 Anion Gap 8 BUN 7 Creatinine 0.71 Estimated GFR 78 L POC Glucose 118 H 117 H Random Glucose 105 Calcium 7.3 L* Prot Corrected Calcium 7.8 L Total Protein 6.1 L Urine Color Urine Clarity Urine pH Ur Specific [place] Urine Protein Urine Glucose (UA) Urine Ketones Urine Occult Blood Urine Nitrate Urine Bilirubin Urine Urobilinogen Ur Leukocyte Esterase Urine RBC Urine WBC Ur Squamous Epith Cells Urine Bacteria Urine Mucus Micro UA Comment Ur Microscopic Review Urine Culture Comments 10/07/17 10/07/17 07:24 11:54 Sodium Potassium Chloride Carbon Dioxide Anion Gap BUN Creatinine Estimated GFR POC Glucose 105 108 Random Glucose Calcium Prot Corrected Calcium Total Protein Urine Color Urine Clarity Urine pH Ur Specific [place] Urine Protein Urine Glucose (UA) Urine Ketones Urine Occult Blood Urine Nitrate Urine Bilirubin Urine Urobilinogen Ur Leukocyte Esterase Urine RBC Urine WBC Ur Squamous Epith Cells Urine Bacteria Urine Mucus Micro UA Comment Ur Microscopic Review Urine Culture Comments Microbiology 10/05/17 12:00 Blood - Peripheral Aerobic Blood Culture - Preliminary No growth in 2 days 10/05/17 12:00 Blood - Peripheral Anaerobic Blood Culture - Preliminary No growth in 2 days Assessment and Plan - Plan Assessment: 89yF with end-stage dementia and septic shock secondary to urinary tract infection/acute pyelonephritis. d/c mivf. recheck h&h after blood transfusion. f/u sensitivities for final abx regimen. can likely transfer out of ICU soon, now out of shock. Plan by systems: Neuro: end-stage severe dementia- nonverbal at baseline frequent neuro checks avoid long-acting sedatives CV: Septic Shock- resolved d/c mivf //Suspected CHF/fluid overload Chest x-ray 10/03 with perihilar fullness. Improved after single dose of Lasix. BNP 500s. Continue to monitor respiratory status. Check echocardiogram. Continue to monitor closely. = 10/05. Echocardiogram pending. Continue to monitor fluid status closely. Renal: Acute pyelonephritis Acute hematuria Acute kidney injury urology consult continue CBI: now adding Amicar to CBI to help with ongoing hematuria. abx as below trend Cr on daily bmp frequent uop monitoring = 10/02. Continues with hematuria and anemia likely secondary to hematuria, staghorn calculi. Discussed with Dr. Summers. Will continue on continuous bladder irrigation as per urology. = 10/03. Hematuria improving. Continue CBI as per urology. = 10/04. Still with some hematuria. Continue CBI. = 10/06 no longing having hematuria. CBI has been stopped FEN/GI: Acute protein calorie malnutrition- moderate Lactic Acidosis- resolved Acute anion-gap metabolic acidosis- resolved speech consult for swallow eval, advance diet after that daily bmp ICU electrolyte protocol //Hypernatremia. = 10/02 sodium 153. Will start on half normal saline. = 10/03. Sodium 150. Improving slowly. Continue half normal saline. = 10/04. Sodium improving 146. Off IV fluids due to CHF. = 10/05. Sodium 147. Will place on one quarter normal saline at low rate due to suspected CHF. = 10/06. Sodium 146 continue one quarter normal saline at low rate due. recheck BMP in AM Heme/ID: Anemia secondary to acute blood loss- worsening Septic Shock- resolved Acute pyelonephritis ESBL E. Coli UTI 1gm ertapenem iv q24h. continue to follow up formal sensitivities. s/p 1 unit prbc. recheck H&H. transfuse to keep hgb > 7. daily cbc = 10/02. Hemoglobin down to 7. 3, likely secondary to hematuria. 1 unit of PRBCs ordered today. Follow-up tomorrow. Continue antibiotics for ESBL E. coli. = 10/03. Reports of melena. Hemoglobin stable. Consult GI order Hemoccult = 10/04. GI following. Appreciate assistance. = 10/05. Leukocytosis improving. GI following for anemia likely secondary to GI losses. Hematuria has resolved but still hemoglobin is slowly trending down. Await endoscopy. Urology following. Hopefully can stop bladder irrigation. Repeat blood cultures today. Continue on IV antibiotics as per ID for gram-negative bacteremia. Echocardiogram pending. = CBI has been stopped by urology Endo: Hyperglycemia of critical illness SSI = 10/02. Glucose appears stable. Discontinue tomorrow if continues stable. = Insulin sliding scale appears to have been discontinued. Glucose stable. Prophylaxis: SCDs hold pharmacologic dvt prophylaxis given active hematuria, anemia Lines: = 10/02 central line has been discontinued. 09/29 3-way CBI Pedraza 10/06 patient 24 hour T max 100.[address] Peter notified and will see the patient palliative care meeting with the patient's family patient now DNR 10/07 patient's family plans to meet with Hospice Discharge Planning: Continues on IV antibiotics for ESBL E. coli. We will need ID clearance We will need urology clearance. Family wishes to speak with palliative care service. Consult placed, family meeting this after noon at 4PM Hospice vs SNF at discharge. Patient has advance Alzheimers dx would be appropriate for Hospice Discussed case with Supervising physician Dr. Torre
[2017-10-07] MEDS: Sodium Chloride 23.4% Inj 38.5 MEQ in Water for Inj, Sterile 1,000 ML IV.CONT SCH (13:50)
--- NOTE | 2017-10-07 14:46 | P.DS ---
<Shahid Torre - Last Filed: 10/07/17 16:58> Date of admission: 09/29/17 13:54 Primary care physician: Blue Holman MD DS: Summary - Time Spent with Patient Total time spent providing and/or coordinating discharge services: Exam Vital signs: Vital Signs 10/06/17 20:42 10/07/17 00:39 10/07/17 04:59 Temperature 98.2 F 98.8 F 97.9 F Pulse Rate 87 89 90 Respiratory Rate 18 17 17 Blood Pressure 142/74 H 146/71 H 144/70 H Pulse Oximetry 94 L 96 96 10/07/17 07:55 10/07/17 12:00 Temperature 98.7 F 98.7 F Pulse Rate 86 83 Respiratory Rate 20 18 Blood Pressure 139/71 168/91 H Pulse Oximetry 92 L 95 Intake & Output 10/06/17 10/07/17 10/07/17 18:59 06:59 18:59 Intake Total 1369.625 / 1369.625 340 / 340 1009.625 / 1009.625 Output Total 2250 / 2250 1800 / 1800 Balance -880.375 / -880.375 -1460 / -1460 1009.625 / 1009.625 Weight 70 kg Intake: IV 1009.625 / 1009.625 100 / 100 1009.625 / 1009.625 Sodium Chloride 23.4% Inj 38.5 1009.625 / 6221.786 1267.625 / 1009.625 MEQ In Sterile Water for Inj 1, 000 ML @ 42 mls/hr IV.CONT . Q24H WADE Rx#:[id number] INVanz Inj 1,000 MG In NS Inj 100 / 100 100 ML @ 100 mls/hr IV.SIG Q24H WADE Rx#:[id number] Oral 360 / 360 240 / 240 Output: Urine 650 / 650 1800 / 1800 Urine Amount (Catheter) 1600 / 1600 3-way Urethral 1600 / 1600 Other: # Voids 0 # Bowel Movements 2 1 Results Labs on day of discharge: Labs from last 24 hours 10/07/17 10/07/17 10/07/17 16:40 11:54 07:24 Sodium Potassium Chloride Carbon Dioxide Anion Gap BUN Creatinine Estimated GFR POC Glucose 121 H 108 105 Random Glucose Calcium Prot Corrected Calcium Total Protein Urine Color Urine Clarity Urine pH Ur Specific [place] Urine Protein Urine Glucose (UA) Urine Ketones Urine Occult Blood Urine Nitrate Urine Bilirubin Urine Urobilinogen Ur Leukocyte Esterase Urine RBC Urine WBC Ur Squamous Epith Cells Urine Bacteria Urine Mucus Micro UA Comment Ur Microscopic Review Urine Culture Comments 10/07/17 10/07/17 10/06/17 05:31 04:46 17:51 Sodium 144 Potassium 3.8 Chloride 109 H Carbon Dioxide 26.9 Anion Gap 8 BUN 7 Creatinine 0.71 Estimated GFR 78 L POC Glucose 117 H 118 H Random Glucose 105 Calcium 7.3 L* Prot Corrected Calcium 7.8 L Total Protein 6.1 L Urine Color Urine Clarity Urine pH Ur Specific [place] Urine Protein Urine Glucose (UA) Urine Ketones Urine Occult Blood Urine Nitrate Urine Bilirubin Urine Urobilinogen Ur Leukocyte Esterase Urine RBC Urine WBC Ur Squamous Epith Cells Urine Bacteria Urine Mucus Micro UA Comment Ur Microscopic Review Urine Culture Comments 10/06/17 10/06/17 10/06/17 17:50 11:57 05:11 Sodium Potassium Chloride Carbon Dioxide Anion Gap BUN Creatinine Estimated GFR POC Glucose 157 H 130 H Random Glucose Calcium Prot Corrected Calcium Total Protein Urine Color Yellow Urine Clarity Hazy H Urine pH 7.0 Ur Specific [place] 1.004 Urine Protein Negative Urine Glucose (UA) Negative Urine Ketones Negative Urine Occult Blood Large H Urine Nitrate Negative Urine Bilirubin Negative Urine Urobilinogen Less than 2 Ur Leukocyte Esterase Large H Urine RBC 19 H Urine WBC 95 H Ur Squamous Epith Cells <1 Urine Bacteria Rare H Urine Mucus Few H Micro UA Comment Cath-culture ind Ur Microscopic Review Not Reportable Urine Culture Comments Cath-cult indicated Preliminary micro results at discharge 10/06/17 17:50 Urine Culture - Preliminary Catheterized Urine 10/05/17 12:00 Aerobic Blood Culture - Preliminary Blood - Peripheral No growth in 2 days Anaerobic Blood Culture - Preliminary No growth in 2 days - Impressions ITS Impressions Abdomen/Pelvis CT 09/29/17 00:00 CONCLUSION: Staghorn calculus in the left kidney. Abdomen/Bladder Ultrasound 09/29/17 12:23 CONCLUSION: 1. Suspected 3 nonobstructing left renal stones measuring up to 16 mm. 2. No other significant abnormality is identified. There is a simple cyst in the lower pole the right kidney measuring 18 mm. Abdomen X-Ray 10/02/17 00:00 CONCLUSION: 1. Bowel gas pattern is within normal limits. There are no findings to indicate obstruction. 2. Staghorn-type calculus in the left kidney is again visualized. Chest X-Ray 10/04/17 06:01 CONCLUSION: 1. Hypoinflation with stable elevation of the right hemidiaphragm. 2. Minimal atelectatic changes in the left lung base with some stable, mild airspace disease laterally in the right perihilar distribution. <Maria Luisa Gonsales - Last Filed: 10/08/17 17:29> Date of admission: 09/29/17 13:54 Primary care physician: Blue Holman MD Attending physician on discharge: Shahid Torre Anticipated date of discharge: 10/07/17 Brief History from admission: This is an 89yF with end-stage dementia who is nonverbal and resides in a healthcare facility. she is brought in by her daughter and medical decision- maker for 48h of hematuria. patient is nonverbal and no additional information is obtainable from the patient. per the daughter, she gets frequent UTIs and she notices this when the patient's clothes have a foul odor. She states she has noticed hematuria x 2 days. no other changes to her appetite or any other changes. Patient has severe dementia and is nonverbal. patient has not had any fevers or rigors that were noticeable to her daughter. in the ER, patient was hypotensive, tachycardic, with leukocytosis. given 3L crystalloid ivf without improvement in hemodynamics and started on norepinephrine for vasopressor support. CT abd/pelvis demonstrates staghorn calculi without hydronephrosis. pedraza catheter placed and started on CBI which improved hematuria. ROS unobtainable. DS: Diagnosis - Discharge Diagnosis (1) UTI (urinary tract infection) Status: Acute (2) Septic shock due to Escherichia coli Status: Acute DS: Summary Hospital Course: Assessment: 89yF with end-stage dementia and septic shock secondary to urinary tract infection/acute pyelonephritis. d/c mivf. recheck h&h after blood transfusion. f/u sensitivities for final abx regimen. can likely transfer out of ICU soon, now out of shock. Plan by systems: Neuro: end-stage severe dementia- nonverbal at baseline frequent neuro checks avoid long-acting sedatives CV: Septic Shock- resolved d/c mivf //Suspected CHF/fluid overload Chest x-ray 10/03 with perihilar fullness. Improved after single dose of Lasix. BNP 500s. Continue to monitor respiratory status. Check echocardiogram. Continue to monitor closely. = 10/05. Echocardiogram pending. Continue to monitor fluid status closely. Renal: Acute pyelonephritis Acute hematuria Acute kidney injury urology consult continue CBI: now adding Amicar to CBI to help with ongoing hematuria. abx as below trend Cr on daily bmp frequent uop monitoring = 10/02. Continues with hematuria and anemia likely secondary to hematuria, staghorn calculi. Discussed with Dr. Summers. Will continue on continuous bladder irrigation as per urology. = 10/03. Hematuria improving. Continue CBI as per urology. = 10/04. Still with some hematuria. Continue CBI. = 10/06 no longing having hematuria. CBI has been stopped FEN/GI: Acute protein calorie malnutrition- moderate Lactic Acidosis- resolved Acute anion-gap metabolic acidosis- resolved speech consult for swallow eval, advance diet after that daily bmp ICU electrolyte protocol //Hypernatremia. = 10/02 sodium 153. Will start on half normal saline. = 10/03. Sodium 150. Improving slowly. Continue half normal saline. = 10/04. Sodium improving 146. Off IV fluids due to CHF. = 10/05. Sodium 147. Will place on one quarter normal saline at low rate due to suspected CHF. = 10/06. Sodium 146 continue one quarter normal saline at low rate due. recheck BMP in AM Heme/ID: Anemia secondary to acute blood loss- worsening Septic Shock- resolved Acute pyelonephritis ESBL E. Coli UTI 1gm ertapenem iv q24h. continue to follow up formal sensitivities. s/p 1 unit prbc. recheck H&H. transfuse to keep hgb > 7. daily cbc = 10/02. Hemoglobin down to 7. 3, likely secondary to hematuria. 1 unit of PRBCs ordered today. Follow-up tomorrow. Continue antibiotics for ESBL E. coli. = 10/03. Reports of melena. Hemoglobin stable. Consult GI order Hemoccult = 10/04. GI following. Appreciate assistance. = 10/05. Leukocytosis improving. GI following for anemia likely secondary to GI losses. Hematuria has resolved but still hemoglobin is slowly trending down. Await endoscopy. Urology following. Hopefully can stop bladder irrigation. Repeat blood cultures today. Continue on IV antibiotics as per ID for gram-negative bacteremia. Echocardiogram pending. = CBI has been stopped by urology Endo: Hyperglycemia of critical illness SSI = 10/02. Glucose appears stable. Discontinue tomorrow if continues stable. = Insulin sliding scale appears to have been discontinued. Glucose stable. Prophylaxis: SCDs hold pharmacologic dvt prophylaxis given active hematuria, anemia Lines: = 10/02 central line has been discontinued. 09/29 3-way CBI Pedraza 10/06 patient 24 hour T max 100.[address] Peter notified and will see the patient palliative care meeting with the patient's family patient now DNR 10/07 patient's family plans to meet with Hospice Discussed case with Supervising physician Dr. Torre Patient not DC'd 10/07/17 please disregard DC summary - Time Spent with Patient Total time spent providing and/or coordinating discharge services: Greater than 30 minutes - Quality: VTE Deep Vein Thrombosis/Pulmonary Embolism Present on Admission: No Exam Vital signs: Vital Signs 10/06/17 16:00 10/06/17 20:42 10/07/17 00:39 Temperature 98.0 F 98.2 F 98.8 F Pulse Rate 78 87 89 Respiratory Rate 18 18 17 Blood Pressure 143/69 H 142/74 H 146/71 H Pulse Oximetry 94 L 94 L 96 10/07/17 04:59 10/07/17 07:55 10/07/17 12:00 Temperature 97.9 F 98.7 F 98.7 F Pulse Rate 90 86 83 Respiratory Rate 17 20 18 Blood Pressure 144/70 H 139/71 168/91 H Pulse Oximetry 96 92 L 95 Intake & Output 10/06/17 10/07/17 10/07/17 18:59 06:59 18:59 Intake Total 1369.625 / 1369.625 340 / 340 1009.625 / 1009.625 Output Total 2250 / 2250 1800 / 1800 Balance -880.375 / -880.375 -1460 / -1460 1009.625 / 1009.625 Weight 70 kg Intake: IV 1009.625 / 1009.625 100 / 100 1009.625 / 1009.625 Sodium Chloride 23.4% Inj 38.5 1009.625 / 6553.426 6187.625 / 1009.625 MEQ In Sterile Water for Inj 1, 000 ML @ 42 mls/hr IV.CONT . Q24H WADE Rx#:[id number] INVanz Inj 1,000 MG In NS Inj 100 / 100 100 ML @ 100 mls/hr IV.SIG Q24H WADE Rx#:[id number] Oral 360 / 360 240 / 240 Output: Urine 650 / 650 1800 / 1800 Urine Amount (Catheter) 1600 / 1600 3-way Urethral 1600 / 1600 Other: # Voids 0 # Bowel Movements 2 1 Narrative: GENERAL: Patient sitting up in bed. Nonverbal as baseline Hematuria appears resolved. SKIN: Warm and dry. HEAD: Normocephalic. EYES: No scleral icterus. No injection or drainage. NECK: Supple, trachea midline. No JVD. CARDIOVASCULAR: Regular rate and rhythm RESPIRATORY: Breath sounds equal bilaterally. No accessory muscle use. No crackles. GASTROINTESTINAL: Abdomen soft, non-tender, nondistended. MUSCULOSKELETAL: No cyanosis. Trace peripheral edema. BACK: Nontender without obvious deformity. No CVA tenderness. Results Procedures completed during hospitalization: none Labs on day of discharge: Labs from last 24 hours 10/07/17 10/07/17 10/07/17 11:54 07:24 05:31 Sodium Potassium Chloride Carbon Dioxide Anion Gap BUN Creatinine Estimated GFR POC Glucose 108 105 117 H Random Glucose Calcium Prot Corrected Calcium Total Protein Urine Color Urine Clarity Urine pH Ur Specific [place] Urine Protein Urine Glucose (UA) Urine Ketones Urine Occult Blood Urine Nitrate Urine Bilirubin Urine Urobilinogen Ur Leukocyte Esterase Urine RBC Urine WBC Ur Squamous Epith Cells Urine Bacteria Urine Mucus Micro UA Comment Ur Microscopic Review Urine Culture Comments 10/07/17 10/06/17 10/06/17 04:46 17:51 17:50 Sodium 144 Potassium 3.8 Chloride 109 H Carbon Dioxide 26.9 Anion Gap 8 BUN 7 Creatinine 0.71 Estimated GFR 78 L POC Glucose 118 H Random Glucose 105 Calcium 7.3 L* Prot Corrected Calcium 7.8 L Total Protein 6.1 L Urine Color Yellow Urine Clarity Hazy H Urine pH 7.0 Ur Specific [place] 1.004 Urine Protein Negative Urine Glucose (UA) Negative Urine Ketones Negative Urine Occult Blood Large H Urine Nitrate Negative Urine Bilirubin Negative Urine Urobilinogen Less than 2 Ur Leukocyte Esterase Large H Urine RBC 19 H Urine WBC 95 H Ur Squamous Epith Cells <1 Urine Bacteria Rare H Urine Mucus Few H Micro UA Comment Cath-culture ind Ur Microscopic Review Not Reportable Urine Culture Comments Cath-cult indicated 10/06/17 10/06/17 11:57 05:11 Sodium Potassium Chloride Carbon Dioxide Anion Gap BUN Creatinine Estimated GFR POC Glucose 157 H 130 H Random Glucose Calcium Prot Corrected Calcium Total Protein Urine Color Urine Clarity Urine pH Ur Specific [place] Urine Protein Urine Glucose (UA) Urine Ketones Urine Occult Blood Urine Nitrate Urine Bilirubin Urine Urobilinogen Ur Leukocyte Esterase Urine RBC Urine WBC Ur Squamous Epith Cells Urine Bacteria Urine Mucus Micro UA Comment Ur Microscopic Review Urine Culture Comments Preliminary micro results at discharge 10/06/17 17:50 Urine Culture - Preliminary Catheterized Urine 10/05/17 12:00 Aerobic Blood Culture - Preliminary Blood - Peripheral No growth in 2 days Anaerobic Blood Culture - Preliminary No growth in 2 days - Impressions ITS Impressions Abdomen/Pelvis CT 09/29/17 00:00 CONCLUSION: Staghorn calculus in the left kidney. Abdomen/Bladder Ultrasound 09/29/17 12:23 CONCLUSION: 1. Suspected 3 nonobstructing left renal stones measuring up to 16 mm. 2. No other significant abnormality is identified. There is a simple cyst in the lower pole the right kidney measuring 18 mm. Abdomen X-Ray 10/02/17 00:00 CONCLUSION: 1. Bowel gas pattern is within normal limits. There are no findings to indicate obstruction. 2. Staghorn-type calculus in the left kidney is again visualized. Chest X-Ray 10/04/17 06:01 CONCLUSION: 1. Hypoinflation with stable elevation of the right hemidiaphragm. 2. Minimal atelectatic changes in the left lung base with some stable, mild airspace disease laterally in the right perihilar distribution. Discharge Plan - Discharge Details Anticipated Discharge Date: 10/07/17 - Physicians Team Primary Care Provider: Blue Holman Attending Provider: Aaliyah Cabrera Other Providers: Marcin Jimenez DO ; Ilan Lancaster ; Kayley Peter MD ; Cb Unger MD ; Fatimah Stapleton MD
[2017-10-07] MEDS: Acetaminophen 325 MG Tablet PO PRN (21:59)
[2017-10-08 07:08] LABS: Calcium 7.5 mg/dL (8.5-10.1); Carbon Dioxide 29.1 meq/L (21.0-32.0); Potassium 3.7 meq/L (3.5-5.1)
[2017-10-08] MEDS: Famotidine PF Inj 20 MG/2 ML Vial IV.PUSH SCH ×2 (08:46→21:59)
[2017-10-08] MEDS: Senna/Docusate Sodium 8.6/50 MG Tablet PO SCH ×2 (08:46→21:59)
--- NOTE | 2017-10-08 15:40 | P.PN ---
Subjective Interval history: In bed, smiling at times. Doesn't appear in acute distress No events overnight Palliative care following. Physical Exam Vital signs: Vital Signs 10/07/17 16:00 10/07/17 20:00 10/07/17 21:35 Temperature 98.7 F 98.9 F Pulse Rate 92 H 86 86 Respiratory Rate 17 16 16 Blood Pressure 121/74 139/67 Pulse Oximetry 95 95 10/08/17 00:05 10/08/17 05:50 10/08/17 05:53 Temperature 98.9 F 97.9 F 97.9 F Pulse Rate 95 H 85 85 Respiratory Rate 18 20 20 Blood Pressure 128/90 151/70 H Pulse Oximetry 95 610 H 90 L 10/08/17 08:00 10/08/17 12:00 Temperature 97.3 F L 98.0 F Pulse Rate 87 91 H Respiratory Rate 18 17 Blood Pressure 131/97 H 114/56 L Pulse Oximetry 95 93 L Intake & Output 10/07/17 10/08/17 10/08/17 18:59 06:59 18:59 Intake Total 1249.625 / 1249.625 100 / 100 Output Total 1250 / 1250 Balance -0.375 / -0.375 100 / 100 Weight 66 kg Intake: IV 1009.625 / 1009.625 100 / 100 Sodium Chloride 23.4% Inj 38.5 1009.625 / 1009.625 MEQ In Sterile Water for Inj 1, 000 ML @ 42 mls/hr IV.CONT . Q24H WADE Rx#:[id number] INVanz Inj 1,000 MG In NS Inj 100 / 100 100 ML @ 100 mls/hr IV.SIG Q24H WADE Rx#:[id number] Oral 240 / 240 Output: Urine 1250 / 1250 Other: Date of Last Bowel Movement 10/08/17 # Bowel Movements 2 Narrative: GENERAL: Patient sitting up in bed. Nonverbal as baseline Hematuria appears resolved. SKIN: Warm and dry. HEAD: Normocephalic. EYES: No scleral icterus. No injection or drainage. NECK: Supple, trachea midline. No JVD. CARDIOVASCULAR: Regular rate and rhythm RESPIRATORY: Breath sounds equal bilaterally. No accessory muscle use. No crackles. GASTROINTESTINAL: Abdomen soft, non-tender, nondistended. MUSCULOSKELETAL: No cyanosis. Trace peripheral edema. BACK: Nontender without obvious deformity. No CVA tenderness. - Urinary Catheter Management Straight Cath placed during this visit: yes Reason for continuing: Gross Hematuria Insertion date: 09/29/17 Insertion time: 14:51 3-way Urethral Cath placed during this visit: yes Reason for continuing: Chronic Urinary Retention Insertion date: 10/02/17 Insertion time: 00:00 Results - Labs CBC & Chem 7: 10/06/17 03:22 10/08/17 05:30 Laboratory Results - last 24 hr 10/06/17 10/07/17 10/08/17 17:50 16:40 05:30 Sodium 146 H Potassium 3.7 Chloride 110 H Carbon Dioxide 29.1 Anion Gap 7 BUN 5 L Creatinine 0.78 Estimated GFR 70 L POC Glucose 121 H Random Glucose 101 Calcium 7.5 L Urine Color Yellow Urine Clarity Hazy H Urine pH 7.0 Ur Specific [place] 1.004 Urine Protein Negative Urine Glucose (UA) Negative Urine Ketones Negative Urine Occult Blood Large H Urine Nitrate Negative Urine Bilirubin Negative Urine Urobilinogen Less than 2 Ur Leukocyte Esterase Large H Urine RBC 19 H Urine WBC 95 H Ur Squamous Epith Cells <1 Urine Bacteria Rare H Urine Mucus Few H Micro UA Comment Cath-culture ind Urine Culture Comments Cath-cult indicated 10/08/17 10/08/17 05:34 12:55 Sodium Potassium Chloride Carbon Dioxide Anion Gap BUN Creatinine Estimated GFR POC Glucose 113 H 119 H Random Glucose Calcium Urine Color Urine Clarity Urine pH Ur Specific [place] Urine Protein Urine Glucose (UA) Urine Ketones Urine Occult Blood Urine Nitrate Urine Bilirubin Urine Urobilinogen Ur Leukocyte Esterase Urine RBC Urine WBC Ur Squamous Epith Cells Urine Bacteria Urine Mucus Micro UA Comment Urine Culture Comments Microbiology 10/06/17 17:50 Catheterized Urine Urine Culture - Preliminary Group D Enterococcus 10/05/17 12:00 Blood - Peripheral Aerobic Blood Culture - Preliminary No growth in 3 days 10/05/17 12:00 Blood - Peripheral Anaerobic Blood Culture - Preliminary No growth in 3 days - Procedures none Assessment and Plan - Assessment (1) UTI (urinary tract infection) Code(s): N39.0 - Urinary tract infection, site not specified Status: Acute (2) Septic shock due to Escherichia coli Code(s): A41.51 - Sepsis due to Escherichia coli [E. coli]; R65.21 - Severe sepsis with septic shock Status: Acute - Plan 89yF with end-stage dementia and septic shock secondary to urinary tract infection/acute pyelonephritis. d/c mivf. recheck h&h after blood transfusion. f /u sensitivities for final abx regimen. can likely transfer out of ICU soon, now out of shock. Plan by systems: Neuro: end-stage severe dementia- nonverbal at baseline frequent neuro checks avoid long-acting sedatives CV: Septic Shock- resolved d/c mivf //Suspected CHF/fluid overload Chest x-ray 10/03 with perihilar fullness. Improved after single dose of Lasix. BNP 500s. Continue to monitor respiratory status. Check echocardiogram. Continue to monitor closely. = 10/05. Echocardiogram pending. Continue to monitor fluid status closely. Renal: Acute pyelonephritis Acute hematuria Acute kidney injury urology consult continue CBI: now adding Amicar to CBI to help with ongoing hematuria. abx as below trend Cr on daily bmp frequent uop monitoring = 10/02. Continues with hematuria and anemia likely secondary to hematuria, staghorn calculi. Discussed with Dr. Summers. Will continue on continuous bladder irrigation as per urology. = 10/03. Hematuria improving. Continue CBI as per urology. = 10/04. Still with some hematuria. Continue CBI. = 10/06 no longing having hematuria. CBI has been stopped FEN/GI: Acute protein calorie malnutrition- moderate Lactic Acidosis- resolved Acute anion-gap metabolic acidosis- resolved speech consult for swallow eval, advance diet after that daily bmp ICU electrolyte protocol //Hypernatremia. = 10/02 sodium 153. Will start on half normal saline. = 10/03. Sodium 150. Improving slowly. Continue half normal saline. = 10/04. Sodium improving 146. Off IV fluids due to CHF. = 10/05. Sodium 147. Will place on one quarter normal saline at low rate due to suspected CHF. = 10/06. Sodium 146 continue one quarter normal saline at low rate due. recheck BMP in AM Heme/ID: Anemia secondary to acute blood loss- worsening Septic Shock- resolved Acute pyelonephritis ESBL E. Coli UTI 1gm ertapenem iv q24h. continue to follow up formal sensitivities. s/p 1 unit prbc. recheck H&H. transfuse to keep hgb > 7. daily cbc = 10/02. Hemoglobin down to 7. 3, likely secondary to hematuria. 1 unit of PRBCs ordered today. Follow-up tomorrow. Continue antibiotics for ESBL E. coli. = 10/03. Reports of melena. Hemoglobin stable. Consult GI order Hemoccult = 10/04. GI following. Appreciate assistance. = 10/05. Leukocytosis improving. GI following for anemia likely secondary to GI losses. Hematuria has resolved but still hemoglobin is slowly trending down. Await endoscopy. Urology following. Hopefully can stop bladder irrigation. Repeat blood cultures today. Continue on IV antibiotics as per ID for gram-negative bacteremia. Echocardiogram pending. = CBI has been stopped by urology Endo: Hyperglycemia of critical illness SSI = 10/02. Glucose appears stable. Discontinue tomorrow if continues stable. = Insulin sliding scale appears to have been discontinued. Glucose stable. Prophylaxis: SCDs hold pharmacologic dvt prophylaxis given active hematuria, anemia Lines: = 10/02 central line has been discontinued. 09/29 3-way CBI Pelaez 10/06 patient 24 hour T max 100.[address] Peter notified and will see the patient palliative care meeting with the patient's family patient now DNR 10/07 patient's family plans to meet with Hospice 10/08. Pending hospice eval and admission Poss DC to hospice Discharge Planning: Continues on IV antibiotics for ESBL E. coli. We will need ID clearance We will need urology clearance. Family wishes to speak with palliative care service. Consult placed, family meeting this after noon at 4PM Hospice vs SNF at discharge. Patient has advance Alzheimers dx would be appropriate for Hospice Discussed case with the nurse.
[2017-10-09] MEDS: Acetaminophen 325 MG Tablet PO PRN ×2 (01:38→20:25)
[2017-10-09] MEDS: Famotidine PF Inj 20 MG/2 ML Vial IV.PUSH SCH ×3 (08:00→20:32)
[2017-10-09] MEDS: Senna/Docusate Sodium 8.6/50 MG Tablet PO SCH ×2 (08:00→20:32)
--- NOTE | 2017-10-09 16:30 | P.DS ---
Date of admission: 09/29/17 13:54 Primary care physician: Blue Holman MD Anticipated date of discharge: 10/07/17 Brief History from admission: This is an 89yF with end-stage dementia who is nonverbal and resides in a healthcare facility. she is brought in by her daughter and medical decision- maker for 48h of hematuria. patient is nonverbal and no additional information is obtainable from the patient. per the daughter, she gets frequent UTIs and she notices this when the patient's clothes have a foul odor. She states she has noticed hematuria x 2 days. no other changes to her appetite or any other changes. Patient has severe dementia and is nonverbal. patient has not had any fevers or rigors that were noticeable to her daughter. in the ER, patient was hypotensive, tachycardic, with leukocytosis. given 3L crystalloid ivf without improvement in hemodynamics and started on norepinephrine for vasopressor support. CT abd/pelvis demonstrates staghorn calculi without hydronephrosis. pedraza catheter placed and started on CBI which improved hematuria. ROS unobtainable. DS: Summary Hospital Course: Mrs. Henry is an 89-year-old female. She was admitted secondary to septic shock related to urinary tract infection and acute pyelonephritis. She also had anemia secondary to hemorrhagic cystitis and was transfused. She has stabilized on treatments of antibiotics and with the blood transfusion. Acute kidney injury was present at time of admit but has improved with treatments also. At baseline she has end-stage dementia. Family was considering hospice but the patient's daughter is not quite ready yet for hospice. At this point patient is medically stable and clear for discharge to senior care facility. She will be completing her antibiotic treatments. - Time Spent with Patient Total time spent providing and/or coordinating discharge services: Less than 30 minutes - Quality: VTE Deep Vein Thrombosis/Pulmonary Embolism Present on Admission: No Exam Vital signs: Vital Signs 10/08/17 20:00 10/09/17 00:00 10/09/17 04:00 Temperature 97.7 F 97.3 F L 97.2 F L Pulse Rate 96 H 97 H 92 H Respiratory Rate 18 17 18 Blood Pressure 119/65 146/77 H 154/75 H Pulse Oximetry 95 94 L 93 L 10/09/17 08:00 10/09/17 09:00 10/09/17 12:00 Temperature 97.5 F L 97.4 F L Pulse Rate 65 96 H 80 Respiratory Rate 16 19 Blood Pressure 130/65 163/92 H Pulse Oximetry 92 L 92 L Intake & Output 10/08/17 10/09/17 10/09/17 18:59 06:59 18:59 Intake Total 220 / 220 220 / 220 Output Total 1250 / 1250 900 / 900 Balance -1030 / -1030 -680 / -680 Weight 65.8 kg Intake: IV 100 / 100 INVanz Inj 1,000 MG In NS Inj 100 / 100 100 ML @ 100 mls/hr IV.SIG Q24H [facility] Rx#:[id number] Oral 220 / 220 120 / 120 Output: Urine 1250 / 1250 900 / 900 Other: Date of Last Bowel Movement 10/08/17 10/08/17 # Bowel Movements 2 Results Procedures completed during hospitalization: none Labs on day of discharge: Preliminary micro results at discharge 10/05/17 12:00 Aerobic Blood Culture - Preliminary Blood - Peripheral No growth in 4 days Anaerobic Blood Culture - Preliminary No growth in 4 days - Impressions ITS Impressions Abdomen/Pelvis CT 09/29/17 00:00 CONCLUSION: Staghorn calculus in the left kidney. Abdomen/Bladder Ultrasound 09/29/17 12:23 CONCLUSION: 1. Suspected 3 nonobstructing left renal stones measuring up to 16 mm. 2. No other significant abnormality is identified. There is a simple cyst in the lower pole the right kidney measuring 18 mm. Abdomen X-Ray 10/02/17 00:00 CONCLUSION: 1. Bowel gas pattern is within normal limits. There are no findings to indicate obstruction. 2. Staghorn-type calculus in the left kidney is again visualized. Chest X-Ray 10/04/17 06:01 CONCLUSION: 1. Hypoinflation with stable elevation of the right hemidiaphragm. 2. Minimal atelectatic changes in the left lung base with some stable, mild airspace disease laterally in the right perihilar distribution. Discharge Plan - Discharge Disposition Patient Disposition: 03 Discharge to SNF - Discharge Condition Condition: Fair - Discharge Order Discharge Orders: Discharge Order (Routine); Ordered 10/09/17 Ordered By: Jack Gonzalez - Discharge Details Anticipated Discharge Date: 10/09/17 - Physicians Team Primary Care Provider: Blue Holman Attending Provider: Jack Gonzalez Other Providers: Marcin Jimenez DO ; Ilan Lancaster ; Kayley Peter MD ; Cb Unger MD ; Fatimah Stapleton MD
--- NOTE | 2017-10-09 20:43 | P.PNURO ---
Subjective Patient symptoms today: PT seen and examined. Objective Vital Signs: Vital Signs 10/09/17 00:00 10/09/17 04:00 10/09/17 08:00 Temperature 97.3 F L 97.2 F L 97.5 F L Pulse Rate 97 H 92 H 65 Respiratory Rate 17 18 16 Blood Pressure 146/77 H 154/75 H 130/65 Pulse Oximetry 94 L 93 L 92 L 10/09/17 09:00 10/09/17 12:00 Temperature 97.4 F L Pulse Rate 96 H 80 Respiratory Rate 19 Blood Pressure 163/92 H Pulse Oximetry 92 L Intake & Output 10/09/17 10/09/17 10/10/17 06:59 18:59 06:59 Intake Total 220 / 220 Output Total 900 / 900 Balance -680 / -680 Weight 65.8 kg Intake: IV 100 / 100 INVanz Inj 1,000 MG In NS Inj 100 / 100 100 ML @ 100 mls/hr IV.SIG Q24H [facility] Rx#:[id number] Oral 120 / 120 Output: Urine 900 / 900 Other: Date of Last Bowel Movement 10/08/17 10/08/17 Result Diagrams: 10/06/17 03:22 10/08/17 05:30 Medications and IVs: Active Medications Generic Name Dose Route Start Last Admin Trade Name Freq PRN Reason Stop Dose Admin Acetaminophen 650 mg 09/29/17 19:30 10/09/17 20:25 Tylenol PO 650 mg Q6H PRN Administration PAIN 1-10 AND/OR FEVER >101F Al Hydroxide/Mg Hydroxide 30 ml 09/29/17 19:30 Milk Of Magnesia Liq PO Q12H PRN Mild Constipation Albuterol 1 ampul 09/29/17 19:30 10/08/17 16:21 Duoneb Neb (Prn) NEB 1 ampul Q2HR NEB PRN Administration WHEEZING Belladonna Alkaloids/Opium 60 mg 10/01/17 16:32 10/05/17 06:19 B & O Supp RECTAL 60 mg Q6H PRN Administration ABDOMINAL PAIN Bisacodyl 10 mg 09/29/17 19:30 Dulcolax Supp RECTAL DAILY PRN SEVERE CONSITIPATION Sodium Chloride 3,000 ml/ 0 ml 10/01/17 16:30 10/03/17 00:51 Aminocaproic Acid 3,000 mg IRRIGATION 3,000 irrig.soln CONT WADE Administration Famotidine 10 mg 09/29/17 21:00 10/09/17 20:32 Pepcid Pf Inj IV.PUSH Not Given Q12HR [facility] Ertapenem 1,000 mg/ Sodium 100 mls @ 100 mls/hr 09/30/17 21:00 10/09/17 20:31 Chloride IV.SIG Not Given Q24H [facility] Lactulose 30 ml 09/29/17 19:30 Lactulose Liq PO DAILY PRN SEVERE CONSITIPATION Ondansetron HCl 4 mg 09/29/17 19:30 Zofran Inj IV.PUSH Q6H PRN NAUSEA OR VOMITING Phenazopyridine HCl 100 mg 10/03/17 14:00 10/09/17 20:25 Pyridium PO 100 mg Q8HR [facility] Administration Senna/Docusate Sodium 1 tab 09/29/17 21:00 10/09/17 20:32 Trina-Colace PO Not Given BID [facility] Sennosides 17.2 mg 09/29/17 19:30 Senokot PO Q12H PRN Moderate Constipation Sodium Chloride 2 ml 09/29/17 19:30 Ns Flush IV.FLUSH PRN PRN FLUSH AFTER USING IV ACCESS Sodium Chloride 2 ml 09/29/17 21:00 10/09/17 20:31 Ns Flush IV.FLUSH Not Given BID [facility] Objective Remarks: ABd:soft,nt,nd Bladder distended. 822 Abd:soft,nt,nd Pedraza: pink on CBI 10/02 Abd:soft,nt,nd Pedraza: urine now pink on CBI 10/03 Abd:soft,nt,nd Pedraza: urine now pink on CBI 10/06 Abd:soft,nt,nd Urine: clear 10/07 Abd:soft,nt,nd Urine: clear 10/09 Abd:soft,nt,nd Urine: orange due to pyridium Assessment and Plan - Plan 89 y.o female with gross hematuria. Pedraza irrigated at bedside to clear Continue CBI for now. 10/01 89 y.o female with gross hematuria. Pedraza irrigated at bedside to clear Will start Amicar CBI now. 10/02 89 y.o female with gross hematuria and staghorn calculus which is non obstructing Continue Amicar CBI for now Not sure that this drop in her Hgb is related to gross hematuria. Receiving one unit PRBC's now. 10/03 89 y.o female with gross hematuria and staghorn calculus which is non obstructing Continue Amicar CBI for now Consider GI consult for black stools. 10/06 89 y.o female with gross hematuria and staghorn calculus which is non obstructing Hematuria has resolved Maintain pedraza catheter Irrigate prn 10/07 89 y.o female with gross hematuria and staghorn calculus which is non obstructing Hematuria has resolved Maintain pedraza catheter Irrigate prn 10/09 89 y.o female with gross hematuria and staghorn calculus which is non obstructing Hematuria has resolved Void trial in AM prior to going to SNF
[2017-10-10 05:44] LABS: Baso % (Auto) 0.6 % (0.0-2.0); Eos # (Auto) 0.2 th/mm3 (0.0-0.4); Eos % (Auto) 3.1 % (0.0-4.0); Hematocrit 30.5 % (35.0-46.0); Hemoglobin 9.8 gm/dL (11.6-15.3); Lymph # (Auto) 1.8 th/mm3 (1.0-4.8); Lymph % (Auto) 25.4 % (9.0-44.0); Mean Corpuscular HGB Conc 32.2 % (32.0-36.0); Mean Corpuscular Hemoglobin 28.6 pg (27.0-34.0); Mean Corpuscular Volume 88.7 fL (80.0-100.0); Mean Platelet Volume 8.1 fL (7.0-11.0); Mono # (Auto) 0.8 th/mm3 (0.0-0.9); Mono % (Auto) 11.3 % (0.0-8.0); Neut # (Auto) 4.1 th/mm3 (1.8-7.7); Neut % (Auto) 59.6 % (16.0-70.0); Platelet Count 342 th/mm3 (150-450); Red Blood Count 3.43 mil/mm3 (4.00-5.30); Red Cell Distribution Width 16.1 % (11.6-17.2); White Blood Count 6.9 th/mm3 (4.0-11.0)
[2017-10-10 06:15] LABS: Albumin 2.3 g/dL (3.4-5.0); Anion Gap 8 meq/L (5-15); Aspartate Aminotransferase 23 U/L (15-37); Blood Urea Nitrogen 8 mg/dL (7-18); Calcium 7.9 mg/dL (8.5-10.1); Carbon Dioxide 27.6 meq/L (21.0-32.0); Chloride 108 meq/L (98-107); Glomerular Filtration Rate 75 mL/min (>89); Glucose,Random 97 mg/dL (74-106); Potassium 4.1 meq/L (3.5-5.1); Sodium 144 meq/L (136-145)
[2017-10-10 06:21] LABS: Alanine Aminotransferase 16 U/L (10-53); Alkaline Phosphatase 74 U/L (45-117); Total Protein 6.9 g/dL (6.4-8.2)
[2017-10-10] MEDS: Famotidine PF Inj 20 MG/2 ML Vial IV.PUSH SCH (09:58)
[2017-10-10] MEDS: Senna/Docusate Sodium 8.6/50 MG Tablet PO SCH (09:58)
--- NOTE | 2017-10-10 10:00 | P.PNURO ---
Subjective Patient symptoms today: Pt seen and examined. Pedraza out. Objective Vital Signs: Vital Signs 10/09/17 12:00 10/09/17 20:00 10/10/17 00:00 Temperature 97.4 F L 97.8 F 97.8 F Pulse Rate 80 85 80 Respiratory Rate 19 18 20 Blood Pressure 163/92 H 98/63 L 100/62 Pulse Oximetry 92 L 94 L 95 10/10/17 04:00 Temperature 98.3 F Pulse Rate 89 Respiratory Rate 18 Blood Pressure 137/75 Pulse Oximetry 96 Intake & Output 10/09/17 10/10/17 10/10/17 18:59 06:59 18:59 Intake Total 240 / 240 Output Total 1300 / 1300 Balance -1060 / -1060 Intake: Oral 240 / 240 Output: Urine Amount (Catheter) 1300 / 1300 3-way Urethral 1300 / 1300 Other: Date of Last Bowel Movement 10/08/17 10/09/17 # Incontinent Bowel Movements 2 Result Diagrams: 10/10/17 05:05 10/10/17 05:05 Medications and IVs: Active Medications Generic Name Dose Route Start Last Admin Trade Name Freq PRN Reason Stop Dose Admin Acetaminophen 650 mg 09/29/17 19:30 10/09/17 20:25 Tylenol PO 650 mg Q6H PRN Administration PAIN 1-10 AND/OR FEVER >101F Al Hydroxide/Mg Hydroxide 30 ml 09/29/17 19:30 Milk Of Magnesia Liq PO Q12H PRN Mild Constipation Albuterol 1 ampul 09/29/17 19:30 10/08/17 16:21 Duoneb Neb (Prn) NEB 1 ampul Q2HR NEB PRN Administration WHEEZING Belladonna Alkaloids/Opium 60 mg 10/01/17 16:32 10/05/17 06:19 B & O Supp RECTAL 60 mg Q6H PRN Administration ABDOMINAL PAIN Bisacodyl 10 mg 09/29/17 19:30 Dulcolax Supp RECTAL DAILY PRN SEVERE CONSITIPATION Sodium Chloride 3,000 ml/ 0 ml 10/01/17 16:30 10/03/17 00:51 Aminocaproic Acid 3,000 mg IRRIGATION 3,000 irrig.soln CONT [facility] Administration Famotidine 10 mg 09/29/17 21:00 10/09/17 20:32 Pepcid Pf Inj IV.PUSH Not Given Q12HR [facility] Ertapenem 1,000 mg/ Sodium 100 mls @ 100 mls/hr 09/30/17 21:00 10/09/17 20:31 Chloride IV.SIG Not Given Q24H [facility] Lactulose 30 ml 09/29/17 19:30 Lactulose Liq PO DAILY PRN SEVERE CONSITIPATION Ondansetron HCl 4 mg 09/29/17 19:30 Zofran Inj IV.PUSH Q6H PRN NAUSEA OR VOMITING Phenazopyridine HCl 100 mg 10/03/17 14:00 10/10/17 07:26 Pyridium PO Not Given Q8HR [facility] Senna/Docusate Sodium 1 tab 09/29/17 21:00 10/09/17 20:32 Trina-Colace PO Not Given BID [facility] Sennosides 17.2 mg 09/29/17 19:30 Senokot PO Q12H PRN Moderate Constipation Sodium Chloride 2 ml 09/29/17 19:30 Ns Flush IV.FLUSH PRN PRN FLUSH AFTER USING IV ACCESS Sodium Chloride 2 ml 09/29/17 21:00 10/09/17 20:31 Ns Flush IV.FLUSH Not Given BID [facility] Objective Remarks: ABd:soft,nt,nd Bladder distended. 822 Abd:soft,nt,nd Pedraza: pink on CBI 10/02 Abd:soft,nt,nd Pedraza: urine now pink on CBI 10/03 Abd:soft,nt,nd Pedraza: urine now pink on CBI 10/06 Abd:soft,nt,nd Urine: clear 10/07 Abd:soft,nt,nd Urine: clear 10/09 Abd:soft,nt,nd Urine: orange due to pyridium 10/10 Abd:soft,nt,nd Pedraza out Assessment and Plan - Plan 89 y.o female with gross hematuria. Pedraza irrigated at bedside to clear Continue CBI for now. 10/01 89 y.o female with gross hematuria. Pedraza irrigated at bedside to clear Will start Amicar CBI now. 10/02 89 y.o female with gross hematuria and staghorn calculus which is non obstructing Continue Amicar CBI for now Not sure that this drop in her Hgb is related to gross hematuria. Receiving one unit PRBC's now. 10/03 89 y.o female with gross hematuria and staghorn calculus which is non obstructing Continue Amicar CBI for now Consider GI consult for black stools. 10/06 89 y.o female with gross hematuria and staghorn calculus which is non obstructing Hematuria has resolved Maintain pedraza catheter Irrigate prn 10/07 89 y.o female with gross hematuria and staghorn calculus which is non obstructing Hematuria has resolved Maintain pedraza catheter Irrigate prn 10/09 89 y.o female with gross hematuria and staghorn calculus which is non obstructing Hematuria has resolved Void trial in AM prior to going to SNF 10/10 89 y.o female with gross hematuria and staghorn calculus which is non obstructing Hematuria has resolved void trial today
--- NOTE | 2017-10-10 11:44 | P.PNADD ---
Addendum to Inpatient Note Reason for Addendum: Additional Documentation Additional information: repeat urine clx with Ent fecalis S to ampicillin Plan will start on Ampicillin 500 mg po q 6 hrs for 2 weeks COmplete Ertpenem as previously recommended (14 days from 1st neg blood clx)
--- NOTE | 2017-10-10 12:28 | P.PNPAL ---
Reason for Visit Reason for visit: a. To assist with evaluation and management of symptoms including: Restlessness , agitation b. To assist medical decision maker(s) with: better understanding of current medical conditions; weighing benefits/burdens of medical treatment options; making medical treatment decisions. Subjective Subjective/Interval History: Patient seen in her bed, no family present. She does not appear uncomfortable or to be in pain now. There is plan for a transition back to her senior care with hospice help. She remains afebrile. Advance Directives Health Care Surrogate Name and Number: Daughter Diamond Henry [phone] Objective Vital Signs: Vital Signs 10/09/17 20:00 10/10/17 00:00 10/10/17 04:00 Temperature 97.8 F 97.8 F 98.3 F Pulse Rate 85 80 89 Respiratory Rate 18 20 18 Blood Pressure 98/63 L 100/62 137/75 Pulse Oximetry 94 L 95 96 10/10/17 08:00 Temperature 97.4 F L Pulse Rate 80 Respiratory Rate 18 Blood Pressure 140/96 H Pulse Oximetry 94 L Intake & Output 10/09/17 10/10/17 10/10/17 18:59 06:59 18:59 Intake Total 240 / 240 Output Total 1300 / 1300 Balance -1060 / -1060 Intake: Oral 240 / 240 Output: Urine Amount (Catheter) 1300 / 1300 3-way Urethral 1300 / 1300 Other: Date of Last Bowel Movement 10/08/17 10/09/17 # Incontinent Bowel Movements 2 Physical Exam: CONSTITUTIONAL/GENERAL: This is an elderly, weak, nonverbal patient, in no apparent distress. TUBES/LINES/DRAINS: Peripheral IV, SCDs, Pelaez NECK: Trachea midline. Supple, nontender. No palpable thyroid enlargement or nodularity. CARDIOVASCULAR: Regular rate and rhythm without murmurs, gallops, or rubs. No JVD. Peripheral pulses diminished. RESPIRATORY/CHEST: Symmetric, unlabored respirations. Clear to auscultation. Breath sounds equal bilaterally. No wheezes, rales, or rhonchi. GASTROINTESTINAL: Abdomen soft, non-tender, nondistended. No hepato-splenomegaly , or palpable masses. No guarding. Bowel sounds present. MUSCULOSKELETAL: Extremities without clubbing, cyanosis, or edema. No joint tenderness or effusion noted. No calf tenderness. No mottling or clubbing. NEUROLOGICAL: Awake and alert. Does not follow simple commands. Mumbles. Moves all extremities minimal amounts. PSYCHIATRIC: No obvious anxiety/depression. no apparent hallucinations or other psychotic thought process. Diagnostic Tests Laboratory: Laboratory Results - last 72 hr 10/06/17 10/07/17 10/08/17 17:50 16:40 05:30 WBC RBC Hgb Hct MCV MCH MCHC RDW Plt Count MPV Neut % (Auto) Lymph % (Auto) Mitchell % (Auto) Eos % (Auto) Baso % (Auto) Neut # (Auto) Lymph # (Auto) Mitchell # (Auto) Eos # (Auto) Baso # (Auto) WBC Differential Differential Comment Sodium 146 H Potassium 3.7 Chloride 110 H Carbon Dioxide 29.1 Anion Gap 7 BUN 5 L Creatinine 0.78 Estimated GFR 70 L POC Glucose 121 H Random Glucose 101 Calcium 7.5 L Total Bilirubin AST ALT Alkaline Phosphatase Total Protein Albumin Urine Color Yellow Urine Clarity Hazy H Urine pH 7.0 Ur Specific [place] 1.004 Urine Protein Negative Urine Glucose (UA) Negative Urine Ketones Negative Urine Occult Blood Large H Urine Nitrate Negative Urine Bilirubin Negative Urine Urobilinogen Less than 2 Ur Leukocyte Esterase Large H Urine RBC 19 H Urine WBC 95 H Ur Squamous Epith Cells <1 Urine Bacteria Rare H Urine Mucus Few H Micro UA Comment Cath-culture ind Urine Culture Comments Cath-cult indicated 10/08/17 10/08/17 10/10/17 05:34 12:55 05:05 WBC 6.9 RBC 3.43 L Hgb 9.8 L Hct 30.5 L MCV 88.7 MCH 28.6 MCHC 32.2 RDW 16.1 Plt Count 342 D MPV 8.1 Neut % (Auto) 59.6 Lymph % (Auto) 25.4 Mitchell % (Auto) 11.3 H Eos % (Auto) 3.1 Baso % (Auto) 0.6 Neut # (Auto) 4.1 Lymph # (Auto) 1.8 Mitchell # (Auto) 0.8 Eos # (Auto) 0.2 Baso # (Auto) 0.0 WBC Differential . Differential Comment Auto diff final Sodium Potassium Chloride Carbon Dioxide Anion Gap BUN Creatinine Estimated GFR POC Glucose 113 H 119 H Random Glucose Calcium Total Bilirubin AST ALT Alkaline Phosphatase Total Protein Albumin Urine Color Urine Clarity Urine pH Ur Specific [place] Urine Protein Urine Glucose (UA) Urine Ketones Urine Occult Blood Urine Nitrate Urine Bilirubin Urine Urobilinogen Ur Leukocyte Esterase Urine RBC Urine WBC Ur Squamous Epith Cells Urine Bacteria Urine Mucus Micro UA Comment Urine Culture Comments 10/10/17 05:05 WBC RBC Hgb Hct MCV MCH MCHC RDW Plt Count MPV Neut % (Auto) Lymph % (Auto) Mitchell % (Auto) Eos % (Auto) Baso % (Auto) Neut # (Auto) Lymph # (Auto) Mitchell # (Auto) Eos # (Auto) Baso # (Auto) WBC Differential Differential Comment Sodium 144 Potassium 4.1 Chloride 108 H Carbon Dioxide 27.6 Anion Gap 8 BUN 8 Creatinine 0.73 Estimated GFR 75 L POC Glucose Random Glucose 97 Calcium 7.9 L Total Bilirubin 0.5 AST 23 ALT 16 Alkaline Phosphatase 74 Total Protein 6.9 D Albumin 2.3 L Urine Color Urine Clarity Urine pH Ur Specific [place] Urine Protein Urine Glucose (UA) Urine Ketones Urine Occult Blood Urine Nitrate Urine Bilirubin Urine Urobilinogen Ur Leukocyte Esterase Urine RBC Urine WBC Ur Squamous Epith Cells Urine Bacteria Urine Mucus Micro UA Comment Urine Culture Comments Result Diagrams: 10/10/17 05:05 10/10/17 05:05 Microbiology: Microbiology 10/05/17 12:00 Aerobic Blood Culture - Final Blood - Peripheral No growth in 5 days Anaerobic Blood Culture - Final No growth in 5 days 10/06/17 17:50 Urine Culture - Final Catheterized Urine Enterococcus faecalis Imaging: Abdomen/Pelvis CT 09/29/17 00:00 CONCLUSION: Staghorn calculus in the left kidney. Abdomen/Bladder Ultrasound 09/29/17 12:23 CONCLUSION: 1. Suspected 3 nonobstructing left renal stones measuring up to 16 mm. 2. No other significant abnormality is identified. There is a simple cyst in the lower pole the right kidney measuring 18 mm. Abdomen X-Ray 10/02/17 00:00 CONCLUSION: 1. Bowel gas pattern is within normal limits. There are no findings to indicate obstruction. 2. Staghorn-type calculus in the left kidney is again visualized. Chest X-Ray 10/04/17 06:01 CONCLUSION: 1. Hypoinflation with stable elevation of the right hemidiaphragm. 2. Minimal atelectatic changes in the left lung base with some stable, mild airspace disease laterally in the right perihilar distribution. Procedures: EGD 10/05/17 Assessment and Plan - Disease Oriented Problem List (1) Septic shock due to Escherichia coli (2) Staghorn calculus (3) Recurrent UTI (urinary tract infection) (4) Infection due to ESBL-producing Escherichia coli Pertinent Non-Medical Issues: Psychosocial: Originally from [place], came to [place] a couple years ago, was living with daughter but now living [facility] the past year. 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 Spiritual: [employer] background, spirituality has been important for her, and the daughter would like a small brake form operator to visit the patient. Legal: The patient lacks capacity for decision-making, and she will not regain that capacity. Daughter Diamond Henry his designated healthcare surrogate. Ethical issues impacting care: None. Important Contacts: Daughter: Diamond Henry [phone] Prognosis: This patient has end-stage dementia, has recurrent UTI and now has survived septic shock, and is a long-term senior care resident. Her prognosis is poor. She is appropriate for hospice services if the goals become comfort oriented. Code Status: No Code DNR Plan: * DO NOT RESUSCITATE * DECISION-MAKING: The patient lacks capacity for decision-making and she will not regain that capacity. Daughter is decision-maker. * GOALS: The patient's daughter requests DNR status. She also requested hospice services when the patient returns to the senior care. * SYMPTOMS: The patient's agitation and restlessness seems to be easily managed by calm and comforting words and light touch. I have no further medication recommendations at this time. * Palliative Care will continue to follow the patient during this hospitalization. Time Spent Total Floor Time (mins): 26 Face to Face Time (mins): 11 >50% Time in Counseling or Coordination of Care: Yes Attestation Attestation: To help prompt me to consider important information that might be impacting today's encounter and assessment, information from prior notes written by myself or my colleagues may have been "brought forward" into today's note. My signature on this note, however, is an attestation that I personally performed the exam, history, and/or decision-making noted today, and, unless otherwise indicated, the interactions with patient, family, and staff as well as the review of records all occurred today. I also attest that the listed assessment and stated plan reflect my best clinical judgment today based on the combination of historical information, prior notes, and today's exam/ interactions. When time spent is documented, it refers only to time spent today by the signer, or if indicated, combined time spent today by collaborating physician/nurse practitioner.
--- NOTE | 2017-10-10 13:57 | P.PNIM ---
Subjective Interval history: Patient medically stable and cleared for discharge yesterday. Transport will transfer this patient to senior care facility at 1600 hrs. today. No new complaints from the patient. Physical Exam Vital signs: Vital Signs 10/09/17 20:00 10/10/17 00:00 10/10/17 04:00 Temperature 97.8 F 97.8 F 98.3 F Pulse Rate 85 80 89 Respiratory Rate 18 20 18 Blood Pressure 98/63 L 100/62 137/75 Pulse Oximetry 94 L 95 96 10/10/17 08:00 10/10/17 12:00 10/10/17 12:57 Temperature 97.4 F L 97.3 F L Pulse Rate 80 87 Respiratory Rate 18 16 18 Blood Pressure 140/96 H 124/60 Pulse Oximetry 94 L 94 L Intake & Output 10/09/17 10/10/17 10/10/17 18:59 06:59 18:59 Intake Total 240 / 240 Output Total 1300 / 1300 600 / 600 Balance -1060 / -1060 -600 / -600 Intake: Oral 240 / 240 Output: Urine 600 / 600 Urine Amount (Catheter) 1300 / 1300 3-way Urethral 1300 / 1300 Other: # Voids 3 Date of Last Bowel Movement 10/08/17 10/09/17 10/10/17 # Incontinent Bowel Movements 2 Narrative: GENERAL: NAD, A&Ox0 HEAD: Normocephalic. NECK: Supple, trachea midline. No lymphadenopathy. EYES: No scleral icterus. No injection or drainage. CARDIOVASCULAR: Regular rate and rhythm without murmurs, gallops, or rubs. RESPIRATORY: Breath sounds equal bilaterally. No accessory muscle use. GASTROINTESTINAL: Abdomen soft, non-tender, nondistended. MUSCULOSKELETAL: No cyanosis, or edema. SKIN: Warm and dry. NEURO: No focal neurological deficits. - Urinary Catheter Management Straight Cath placed during this visit: yes Reason for continuing: Gross Hematuria Insertion date: 09/29/17 Insertion time: 14:51 3-way Urethral Cath placed during this visit: yes, but has since been removed by the nurse Reason for continuing: Decision to DC catheter Insertion date: 10/02/17 Insertion time: 00:00 Removal date: 10/10/17 Removal time: 06:05 Results - Labs CBC & Chem 7: 10/10/17 05:05 10/10/17 05:05 Laboratory Results - last 24 hr 08/31/18 08/31/18 05:05 05:05 WBC 6.9 RBC 3.43 L Hgb 9.8 L Hct 30.5 L MCV 88.7 MCH 28.6 MCHC 32.2 RDW 16.1 Plt Count 342 D MPV 8.1 Neut % (Auto) 59.6 Lymph % (Auto) 25.4 [place] % (Auto) 11.3 H Eos % (Auto) 3.1 Baso % (Auto) 0.6 Neut # (Auto) 4.1 Lymph # (Auto) 1.8 [place] # (Auto) 0.8 Eos # (Auto) 0.2 Baso # (Auto) 0.0 WBC Differential . Differential Comment Auto diff final Sodium 144 Potassium 4.1 Chloride 108 H Carbon Dioxide 27.6 Anion Gap 8 BUN 8 Creatinine 0.73 Estimated GFR 75 L Random Glucose 97 Calcium 7.9 L Total Bilirubin 0.5 AST 23 ALT 16 Alkaline Phosphatase 74 Total Protein 6.9 D Albumin 2.3 L Microbiology 10/05/17 12:00 Blood - Peripheral Aerobic Blood Culture - Final No growth in 5 days 10/05/17 12:00 Blood - Peripheral Anaerobic Blood Culture - Final No growth in 5 days 10/06/17 17:50 Catheterized Urine Urine Culture - Final Enterococcus faecalis - Procedures none Assessment and Plan - Assessment (1) UTI (urinary tract infection) Code(s): N39.0 - Urinary tract infection, site not specified Status: Acute (2) Septic shock due to Escherichia coli Code(s): A41.51 - Sepsis due to Escherichia coli [E. coli]; R65.21 - Severe sepsis with septic shock Status: Acute - Plan end-stage severe dementia Discharge to senior care facility Septic shock Resolved CHF/fluid overload Stabilized Acute pyelonephritis Acute hematuria Acute kidney injury Improved Acute protein calorie malnutrition- moderate Lactic Acidosis- resolved Acute anion-gap metabolic acidosis- resolved Encourage p.o. intake Hypernatremia. Improved Anemia secondary to acute blood loss- worsening Septic Shock- resolved Acute pyelonephritis ESBL E. Coli UTI Discharge with Augmentin, based on sensitivity profile Hyperglycemia of critical illness Improved Discharge Planning: Discharge to senior care facility today Long-term outlook is poor given patient's end-stage dementia, global debility, and poor p.o. intake.
[2017-10-10] MEDS ORDERED: Loperamide 2 MG Capsule PO STA (16:13)
== END 2017-10-10 16:12 | disposition hospice, inpatient (51) ==
LOC: NEPC 11:07 → NEDA 13:54 → HIMC 17:14 → N07 10-03 13:34
PROVIDERS: ADMIT Hospitalist; ATTEND Hospitalist
PROC: PANENDO (2017-10-05 10:43)